=== PATIENT | female | born 1980 | race Caucasian/White ===

== ENCOUNTER 2017-11-13 04:09 | Emergency (ER) | payer BC, SELFPAY ==
[2017-11-13 04:10] VITALS: BP 143/83; PULSE 70; RESP 16; TEMP 36.9; O2SAT 98; BMI 39.1
--- NOTE | 2017-11-13 04:21 | XR_ITS ---
XR chest 2V INDICATION: Chest pain COMPARISON: PA and lateral chest 12/16/2016 FINDINGS: The lung de [place] are well expanded and appear clear of infiltrate. The cardiomediastinal silhouette and vascularity are normal. The costophrenic angles are clear. The bony thorax is normal. IMPRESSION: Normal chest.
--- NOTE | 2017-11-13 04:27 | PC.NURSE ---
Pt reports she took 2 81mg asa prior to coming to the ER
--- NOTE | 2017-11-13 04:28 | PC.NURSE ---
Pt. to radiology
[2017-11-13 04:34] LABS: Basophils # 0.1 K/mm3 (0-0.2); Basophils % 0.8 % (0.1-2.0); Eosinophils # 0.3 K/mm3 (0.0-0.4); Eosinophils % 1.7 % (0.1-12.0); Hematocrit 43.7 % (37.0-47.0); Hemoglobin 14.8 g/dL (12.2-16.2); Lymphocytes # 6.6 K/mm3 (0.7-4.5); Lymphocytes % 43.9 K/mm3 (10-50); Mean Corpuscular Hemoglobin 28.8 pg (27.0-31.2); Mean Corpuscular Volume 84.8 fl (81-99); Mean Platelet Volume 8.4 fl (7.4-10.4); Monocytes # 1.3 K/mm3 (0.1-1.0); Monocytes % 8.7 % (1.7-9.3); Neutrophils # 6.8 K/mm3 (1.8-7.8); Neutrophils % 44.9 % (37.0-80.0); Platelet Count 295 K/mm3 (142-424); Red Blood Count 5.15 M/mm3 (4.20-5.40); Red Cell Distribution Width 12.6 % (11.5-17.5)
[2017-11-13 04:43] LABS: MANUAL DIFFERENTIAL MANUAL DIFFERENTIAL (MANUAL DIFF)
[2017-11-13 04:44] LABS: Lymphocytes % 41 % (10-50); Monocytes % 7 % (2-9); Neutrophils % 50 % (42-76); Platelet Estimate Normal; RBC Morphology Normal; Total Cells Counted 100
[2017-11-13 05:00] LABS: Alanine Aminotransferase 27 U/L (12-78); Albumin Level 3.8 gm/dL (3.4-5.0); Albumin/Globulin Ratio 0.9 (1.1-1.8); Alkaline Phosphatase 142 U/L (46-116); Aspartate Amino Transferase 8 U/L (15-37); Bilirubin,Total 0.4 mg/dL (0.2-1.0); Blood Urea Nitrogen 25 mg/dL (7-18); Calcium 9.2 mg/dL (8.5-10.1); Carbon Dioxide 27 mmol/L (21.0-32.0); Chloride 100 mmol/L (98-107); Creatine Kinase 51 U/L (26-192); Creatinine Clearance Estimated 185 mL/min (0-300); Estimated Glomerular Filt Rate 94 ml/min (>60); GFR (African American) 114 ML/MIN (>60); Globulin 4.2 gm/dl (1.3-3.2); Glucose 106 mg/dL (74-106); Troponin I < 0.02 ng/ml (0.00-0.06)
[2017-11-13 05:04] LABS: Anion Gap 13.1 mEq/L (5-15); Potassium 4.1 mmoL/L (3.5-5.1); Sodium 136 mmol/L (136-145)
[2017-11-13 05:06] LABS: Creatine Kinase MB < 0.5 mg/ml (0.0-3.6)
[2017-11-13 05:12] VITALS: BP 118/62; PULSE 67; TEMP 36.7; O2SAT 96
--- NOTE | 2017-11-13 05:30 | HMH.EDCP ---
ED Disposition Clinical Impression: Chest pain Qualifiers: Chest pain type: other chest pain Qualified Code(s): R07.89 - Other chest pain; R07.8 - Other chest pain Disposition: Home, Self-Care Condition on Discharge: Good Instructions: DI for Atypical Chest Pain Additional Instructions: see pcp wednesday and return if needed Referrals: Patrick Brown MD [Primary Care Provider] - - Critical Care Critical Care Time: No Attestation: On 11/13/17, the high probability of a clinically significant, sudden or life threatening deterioration of the following system(s) required my full and direct attention, intervention and personal management. The time I documented below is in addition to time spent performing reported procedures but includes the following listed in this critical care notation. Medical Decision Making Vital Signs: 11/13/17 04:10 11/13/17 05:12 11/13/17 06:40 Temperature 98.4 F 98.0 F Temperature Source Oral Oral Pulse Rate [Right Brachial] 70 67 60 Respiratory Rate 16 12 Blood Pressure [Right Arm] 143/83 118/62 128/81 Blood Pressure Mean [Right Arm] 103 80 96 Blood Pressure Source [Right Arm] Automatic Cuff Automatic Cuff Automatic Cuff Blood Pressure Position [Right Arm] Supine Sitting Sitting 02 Sat by Pulse Oximetry 98 96 97 Oxygen Delivery Method Room Air Room Air Room Air - Lab Data Lab results reviewed: Yes: I reviewed the patient's lab results. Lab Results 11/13/17 04:15: WBC 15.0 H, RBC 5.15, Hgb 14.8, Hct 43.7, MCV 84.8, MCH 28.8, MCHC 34.0, RDW 12.6, Plt Count 295, MPV 8.4, Neut % (Auto) 44.9, Lymph % (Auto) 43.9, [place] % (Auto) 8.7, Eos % (Auto) 1.7, Baso % (Auto) 0.8, Neut # (Auto) 6.8, Lymph # (Auto) 6.6 H, [place] # (Auto) 1.3 H, Eos # (Auto) 0.3, Baso # (Auto) 0.1, Total Counted 100, Neutrophils % (Manual) 50, Band Neutrophils % 2.0, Lymphocytes % (Manual) 41, Monocytes % (Manual) 7, Platelet Estimate Normal, RBC Morphology Normal 11/13/17 04:15: Sodium 136, Potassium 4.1, Chloride 100, Carbon Dioxide 27, Anion Gap 13.1, BUN 25 H, Creatinine 0.70, Estimated Creat Clear 185, Estimated GFR 94, Est GFR ( Amer) 114, Glucose 106, Calcium 9.2, Total Bilirubin 0.4, AST 8 L, ALT 27, Alkaline Phosphatase 142 H, Total Creatine Kinase 51, CK-MB (CK-2) < 0.5, CK-MB (CK-2) Rel Index 1.0, Troponin I < 0.02, Total Protein 8.0, Albumin 3.8, Globulin 4.2 H, Albumin/Globulin Ratio 0.9 L 11/13/17 06:55: Troponin I < 0.02 Result diagrams: 11/13/17 04:15 11/13/17 04:15 Orders (Tests/Meds): ED MEDICATIONS Discontinued Medications Generic Name Dose Route Start Last Admin Trade Name Freq PRN Reason Stop Dose Admin Aspirin 162 mg 11/13/17 04:23 11/13/17 04:25 Aspirin 81mg Chewable Tablet PO 11/13/17 04:24 162 mg ONCE ONE Administration ORDERS Category Date Time Status XR chest 2V Stat Exams 11/13/17 04:21 Taken - Radiology Data #1 Image(s): Chest Image Reviewed: Yes I reviewed the patient's radiology image Preliminary Findings: Normal/NAD - ECG Data Tracing #1 I reviewed this ECG and interpreted as documented below: Normal Sinus Rhythm: Yes Ischemic changes: non-specific ST-T wave changes - [place] Inquiry Pt receiving controlled substance: No Chest Pain HPI - General Chief Complaint: Chest Pain Stated Complaint: chest pain Time Seen by Provider: 11/13/17 05:30 Mode of Arrival: Ambulatory Source of Information: Patient, Medical Record Limitations: No Limitations Description of Symptoms (Recalled from ER Triage Doc. by RN): chest pain that awakened pt in the night, diaphoresis, left arm pain - History of Present Illness HPI narrative: pt with episode of chest pain with rad to lt upper ext - she awoke with this MD complaint: chest pain Onset (ago): minute(s) Duration: now resolved Activity at onset: awoke with symptoms Pain location: substernal Severity: moderate Quality: sharp Pain radiation: LUE Risk Factors for CAD: Family Hx
--- NOTE | 2017-11-13 05:35 | ED_ITS ---
ED Disposition Clinical Impression: Chest pain Qualifiers: Chest pain type: other chest pain Qualified Code(s): R07.89 - Other chest pain ; R07.8 - Other chest pain Disposition: Home, Self-Care Condition on Discharge: Good Instructions: DI for Atypical Chest Pain Additional Instructions: see pcp wednesday and return if needed Referrals: Patrick Brown MD [Primary Care Provider] - - Critical Care Critical Care Time: No Attestation: On 11/13/17, the high probability of a clinically significant, sudden or life threatening deterioration of the following system(s) required my full and direct attention, intervention and personal management. The time I documented below is in addition to time spent performing reported procedures but includes the following listed in this critical care notation. Medical Decision Making Vital Signs: 11/13/17 04:10 11/13/17 05:12 11/13/17 06:40 Temperature 98.4 F 98.0 F Temperature Source Oral Oral Pulse Rate [Right Brachial] 70 67 60 Respiratory Rate 16 12 Blood Pressure [Right Arm] 143/83 118/62 128/81 Blood Pressure Mean [Right Arm] 103 80 96 Blood Pressure Source [Right Arm] Automatic Cuff Automatic Cuff Automatic Cuff Blood Pressure Position [Right Arm] Supine Sitting Sitting 02 Sat by Pulse Oximetry 98 96 97 Oxygen Delivery Method Room Air Room Air Room Air - Lab Data Lab results reviewed: Yes: I reviewed the patient's lab results. Lab Results 11/13/17 04:15: WBC 15.0 H, RBC 5.15, Hgb 14.8, Hct 43.7, MCV 84.8, MCH 28.8, MCHC 34.0, RDW 12.6, Plt Count 295, MPV 8.4, Neut % (Auto) 44.9, Lymph % (Auto) 43.9, [place] % (Auto) 8.7, Eos % (Auto) 1.7, Baso % (Auto) 0.8, Neut # (Auto) 6.8 , Lymph # (Auto) 6.6 H, [place] # (Auto) 1.3 H, Eos # (Auto) 0.3, Baso # (Auto) 0.1 , Total Counted 100, Neutrophils % (Manual) 50, Band Neutrophils % 2.0, Lymphocytes % (Manual) 41, Monocytes % (Manual) 7, Platelet Estimate Normal, RBC Morphology Normal 11/13/17 04:15: Sodium 136, Potassium 4.1, Chloride 100, Carbon Dioxide 27, Anion Gap 13.1, BUN 25 H, Creatinine 0.70, Estimated Creat Clear 185, Estimated GFR 94, Est GFR ( Amer) 114, Glucose 106, Calcium 9.2, Total Bilirubin 0.4, AST 8 L, ALT 27, Alkaline Phosphatase 142 H, Total Creatine Kinase 51, CK- MB (CK-2) < 0.5, CK-MB (CK-2) Rel Index 1.0, Troponin I < 0.02, Total Protein 8.0, Albumin 3.8, Globulin 4.2 H, Albumin/Globulin Ratio 0.9 L 11/13/17 06:55: Troponin I < 0.02 Result diagrams: 11/13/17 04:15 11/13/17 04:15 Orders (Tests/Meds): ED MEDICATIONS Discontinued Medications Generic Name Dose Route Start Last Admin Trade Name Freq PRN Reason Stop Dose Admin Aspirin 162 mg 11/13/17 04:23 11/13/17 04:25 Aspirin 81mg Chewable Tablet PO 11/13/17 04:24 162 mg ONCE ONE Administration ORDERS Category Date Time Status XR chest 2V Stat Exams 11/13/17 04:21 Taken - Radiology Data #1 Image(s): Chest Image Reviewed: Yes I reviewed the patient's radiology image Preliminary Findings: Normal/NAD - ECG Data Tracing #1 I reviewed this ECG and interpreted as documented below: Normal Sinus Rhythm: Yes Ischemic changes: non-specific ST-T wave changes - [place] Inquiry Pt receiving controlled substance: No Chest Pain HPI - General Chief Complaint: Chest Pain Stated Complaint: chest pain Time Seen by Prov
[2017-11-13 06:40] VITALS: BP 128/81; PULSE 60; RESP 12; O2SAT 97
[2017-11-13 07:30] LABS: Troponin I < 0.02 ng/ml (0.00-0.06)
[2017-11-13 07:48] VITALS: BP 108/71; PULSE 61; RESP 12; TEMP 36.5; O2SAT 98
== END 2017-11-13 07:48 | disposition home or self-care (01) ==
PROVIDERS: Emergency Provider Emergency Medicine; PCP Emergency Medicine
DX: R07.89 Other chest pain (principal); Z87.891 Personal history of nicotine dependence; Z79.82 Long term (current) use of aspirin
CPT/HCPCS: 71046; 80053; 82550; 82553; 84484; 85007; 85025; 93005; 93041; 99283

== ENCOUNTER → 2017-11-26 07:23 | Outpatient (CLI) | payer BC, SELFPAY ==
--- NOTE | 2017-11-26 07:29 | NM_ITS ---
History and Indications: Chest pain Procedure: Patient exercised on Evaristo protocol 7 minutes, resting heart rate was 60 bpm, resting blood pressure 129/71, with exercise maximum heart rate achieved was 1 69 bpm which is greater than 85% of the maximum predicted heart rate and a blood pressure was 180/78. Test was started due to shortness of breath, nausea complained of chest pain in the recovery. Patient has good exercise capacity achieved 10.1mets of workload on treadmill, the blood pressure response to exercise was adequate. Electrocardiogram: Resting electrocardiogram showed sinus rhythm rightward axis, with exercise excessive baseline artifact seen, there is less than 1.[address] segment depression noted from the baseline EKG. Nonspecific T wave changes were noted in the recovery. The EKG portion of the exercise Myoview is negative for ischemia. Cardiac stress and resting SPECT images: Cardiac stress and rest SPECT images were obtained using technetium 99 Myoview 10.6 mCi at rest and 31.8 mCi at stress, gated SPECT further analysis of segmental wall motion and calculation of the ejection fraction also done. Cardiac stress and rest SPECT images show a mild fixed defect in the anterior wall with the apex being normal and normal contractility in the gated SPECT is likely secondary to soft tissue attenuation from the breast, no reversible ischemia seen. Computer derived ejection fraction over 65% with no obvious regional wall motion abnormality, right ventricle is normal size and contractility. Conclusion: 1. The EKG portion of the exercise Myoview is negative for ischemia, patient has good exercise capacity achieved 10.1mets of workload on treadmill, the blood pressure response to exercise was adequate test was started due to shortness of breath, patient complained of chest pain in the recovery. 2. No obvious scintigraphic evidence of reversible ischemia seen at this level of exercise, either derived ejection fraction is over 65% with no obvious regional wall motion abnormality, right ventricle is normal size and contractility.
--- NOTE | 2017-11-26 10:20 | HMH.ITSHM ---
lisinopril lasix vit d zanaflex prolesec
== END ==
PROVIDERS: PCP Emergency Medicine; Visit Provider Physician Assistant
DX: R07.9 Chest pain, unspecified (principal)
CPT/HCPCS: 78452; 93017; A9502

== ENCOUNTER → 2017-12-18 08:57 | Outpatient (CLI) | payer BC, SELFPAY ==
[2017-12-18 10:31] LABS: Chol/HDL Ratio 4.1 (1-3.5); Cholesterol 227 mg/dL (140-200); HDL Cholesterol 55 mg/dL (29-89); LDL Cholesterol 146 mg/dL (0-130); Triglycerides 129 mg/dL (30-200); VLDL Cholesterol 26 mg/dL (0-40)
== END ==
PROVIDERS: PCP Emergency Medicine; Visit Provider Physician Assistant
DX: E78.5 Hyperlipidemia, unspecified (principal)
CPT/HCPCS: 36415; 80061

== ENCOUNTER → 2018-05-02 15:31 | Outpatient (CLI) | payer BC, SELFPAY ==
--- NOTE | 2018-05-02 15:34 | XR_ITS ---
XR foot wt bearing LT 3V HISTORY: ITS.REASON: pain ORDERING PHYSICIAN: Lashay Parks DPM PATIENT AGE: 37 years COMPARISON: None FINDINGS: No fracture or dislocation. No lytic or blastic change. There is normal mineralization.. The joint spaces are well-preserved. There is flexion deformity of the second third toes. Otherwise negative IMPRESSION: Flexion deformity of second and third toes otherwise negative
--- NOTE | 2018-05-02 15:34 | XR_ITS ---
XR foot wt bearing RT 3V HISTORY: ITS.REASON: Pain ORDERING PHYSICIAN: Lashay Parks DPM PATIENT AGE: 37 years COMPARISON: None FINDINGS: No fracture or dislocation. No lytic or blastic change. There is normal mineralization.. The joint spaces are well-preserved. No significant degenerative/arthritic changes. No erosive changes evident. IMPRESSION: Negative, no acute finding
== END ==
PROVIDERS: Visit Provider Podiatrist
DX: M79.673 Pain in unspecified foot (principal)
CPT/HCPCS: 73630

== ENCOUNTER → 2018-07-08 10:27 | Outpatient (CLI) | payer BC, SELFPAY ==
[2018-07-08 10:50] LABS: Basophils # 0.1 K/mm3 (0-0.2); Basophils % 0.7 % (0.1-2.0); Eosinophils # 0.1 K/mm3 (0.0-0.4); Eosinophils % 1.3 % (0.1-12.0); Hematocrit 45.8 % (37.0-47.0); Hemoglobin 15.3 g/dL (12.2-16.2); Lymphocytes # 3.9 K/mm3 (0.7-4.5); Mean Corpuscular HGB Conc 33.3 g/dL (31.8-35.4); Mean Corpuscular Hemoglobin 28.6 pg (27.0-31.2); Mean Corpuscular Volume 85.6 fl (81-99); Mean Platelet Volume 8.6 fl (7.4-10.4); Monocytes # 0.9 K/mm3 (0.1-1.0); Monocytes % 7.9 % (1.7-9.3); Neutrophils # 6.1 K/mm3 (1.8-7.8); Neutrophils % 55.1 % (37.0-80.0); Platelet Count 306 K/mm3 (142-424); Red Blood Count 5.35 M/mm3 (4.20-5.40); Red Cell Distribution Width 13.1 % (11.5-17.5); White Blood Count 11.1 K/mm3 (4.8-10.8)
[2018-07-08 13:23] LABS: Alanine Aminotransferase 25 U/L (12-78); Albumin Level 3.8 gm/dL (3.4-5.0); Alkaline Phosphatase 138 U/L (46-116); Anion Gap 17.5 mEq/L (5-15); Aspartate Amino Transferase 15 U/L (15-37); Bilirubin,Total 0.4 mg/dL (0.2-1.0); Blood Urea Nitrogen 18 mg/dL (7-18); Calcium 9.3 mg/dL (8.5-10.1); Carbon Dioxide 25 mmol/L (21.0-32.0); Chloride 103 mmol/L (98-107); Chol/HDL Ratio 4.5 (1-3.5); Cholesterol 259 mg/dL (140-200); Creatinine,Serum 0.57 mg/dL (0.55-1.02); Estimated Glomerular Filt Rate 119 ml/min (>60); GFR (African American) 144 ML/MIN (>60); Globulin 3.7 gm/dl (1.3-3.2); Glucose 87 mg/dL (74-106); HDL Cholesterol 58 mg/dL (29-89); LDL Cholesterol 170 mg/dL (0-130); Potassium 4.5 mmoL/L (3.5-5.1); Sodium 141 mmol/L (136-145); T4 (Thyroxine) 8.6 ug/dl (4.7-13.3); Thyroid Stimulating Hormone 3.34 uIU/ml (0.358-3.740); Total Protein,Serum 7.5 gm/dL (6.4-8.2); Triglycerides 156 mg/dL (30-200); VLDL Cholesterol 31 mg/dL (0-40)
== END ==
PROVIDERS: PCP Nurse Practitioner Family; Visit Provider Nurse Practitioner Family
DX: F32.9 Major depressive disorder, single episode, unspecified (principal)
CPT/HCPCS: 36415; 80053; 80061; 84436; 84443; 85025

== ENCOUNTER → 2018-07-28 18:44 | Outpatient (CLI) | payer BC, SELFPAY ==
[2018-07-28 19:38] LABS: Amphetamine/Metha Screen,Urine Negative ng/mL (<1000); Barbiturates Screen,Urine Negative ng/mL (<200); Benzodiazepines Screen,Urine Negative ng/mL (<200); Cannabinoid Screen,Urine Negative ng/mL (<50); Cocaine Screen,Urine Negative ng/mL (<300); Methadone Screen,Urine Negative ng/mL (<300); Opiate Screen,Urine Negative ng/mL (<300); Phencyclidine Screen,Urine Negative ng/mL (<25)
== END ==
LOC: LAB 18:45 → LAB.DROPOF 07-29 09:12
PROVIDERS: Visit Provider Nurse Practitioner Family
DX: Z79.899 Other long term (current) drug therapy (principal)
CPT/HCPCS: 80305

== ENCOUNTER → 2019-01-07 08:37 | Outpatient (CLI) | payer BC, SELFPAY ==
[2019-01-07 09:18] LABS: Basophils # 0.1 K/mm3 (0-0.2); Basophils % 0.6 % (0.1-2.0); Eosinophils # 0.3 K/mm3 (0.0-0.4); Hematocrit 41.4 % (37.0-47.0); Hemoglobin 14.2 g/dL (12.2-16.2); Lymphocytes # 4.9 K/mm3 (0.7-4.5); Lymphocytes % 38.9 % (10-50); Mean Corpuscular HGB Conc 34.2 g/dL (31.8-35.4); Mean Corpuscular Volume 84.8 fl (81-99); Mean Platelet Volume 8.1 fl (7.4-10.4); Monocytes # 0.5 K/mm3 (0.1-1.0); Monocytes % 3.9 % (1.7-9.3); Neutrophils # 6.8 K/mm3 (1.8-7.8); Neutrophils % 54.5 % (37.0-80.0); Platelet Count 302 K/mm3 (142-424); Red Blood Count 4.88 M/mm3 (4.20-5.40); Red Cell Distribution Width 12.8 % (11.5-17.5); White Blood Count 12.5 K/mm3 (4.8-10.8)
[2019-01-07 10:42] LABS: Erythrocyte Sedimentation Rate 10 mm/hr (0-20)
[2019-01-07 11:33] LABS: Alanine Aminotransferase 26 U/L (12-78); Albumin Level 3.8 gm/dL (3.4-5.0); Alkaline Phosphatase 99 U/L (46-116); Anion Gap 12.5 mEq/L (5-15); Aspartate Amino Transferase 7 U/L (15-37); Bilirubin,Total 0.3 mg/dL (0.2-1.0); Blood Urea Nitrogen 24 mg/dL (7-18); C-Reactive Protein 0.5 mg/L (0.0-0.9); Calcium 9.5 mg/dL (8.5-10.1); Carbon Dioxide 29 mmol/L (21.0-32.0); Chloride 102 mmol/L (98-107); Chol/HDL Ratio 4.6 (1-3.5); Cholesterol 221 mg/dL (140-200); Creatinine,Serum 0.67 mg/dL (0.55-1.02); Estimated Glomerular Filt Rate 98 ml/min (>60); GFR (African American) 119 ML/MIN (>60); Globulin 3.7 gm/dl (1.3-3.2); Glucose 99 mg/dL (74-106); HDL Cholesterol 48 mg/dL (29-89); LDL Cholesterol 144 mg/dL (0-130); Potassium 4.5 mmoL/L (3.5-5.1); Sodium 139 mmol/L (136-145); T4 (Thyroxine) 8.9 ug/dl (4.7-13.3); Thyroid Stimulating Hormone 1.73 uIU/ml (0.358-3.740); Total Protein,Serum 7.5 gm/dL (6.4-8.2); Triglycerides 143 mg/dL (30-200); VLDL Cholesterol 29 mg/dL (0-40)
[2019-01-09 08:40] LABS: Peripheral Smear Review Scanned Result
== END ==
PROVIDERS: Visit Provider Nurse Practitioner Family
DX: F32.9 Major depressive disorder, single episode, unspecified (principal); R58 Hemorrhage, not elsewhere classified; E78.5 Hyperlipidemia, unspecified
CPT/HCPCS: 36415; 80053; 80061; 84436; 84443; 85025; 85651; 86140

== ENCOUNTER → 2019-06-02 10:51 | Outpatient (CLI) | payer BC, SELFPAY ==
[2019-06-04 04:19] LABS: FSH 37.2 mIU/mL (.); Progesterone <0.1 ng/mL (.)
[2019-06-06 06:50] LABS: Estrogen 80 pg/mL (.)
[2019-06-08 06:10] LABS: Testosterone, Total, LC/MS 17.3 ng/dL (10.0-55.0)
== END ==
PROVIDERS: Visit Provider Nurse Practitioner Psychiatric/Mental Health
DX: R53.83 Other fatigue (principal)
CPT/HCPCS: 36415; 82672; 83001; 84144; 84403

== ENCOUNTER → 2019-07-03 11:01 | Outpatient (CLI) | payer BC, SELFPAY ==
[2019-07-03 13:46] LABS: T4 (Thyroxine) 8.1 ug/dl (4.7-13.3); Thyroid Stimulating Hormone 2.24 uIU/ml (0.358-3.740)
[2019-07-06 17:03] LABS: Triiodothyronine (T3) Free 2.9 pg/mL (2.0-4.4)
== END ==
PROVIDERS: Visit Provider Nurse Practitioner Psychiatric/Mental Health
DX: R53.83 Other fatigue (principal)
CPT/HCPCS: 36415; 84436; 84443; 84481

== ENCOUNTER → 2019-09-08 11:43 | Outpatient (CLI) | payer BC, SELFPAY ==
--- NOTE | 2019-09-08 11:45 | CA_ITS ---
APPROVED REPORT Bilateral Lower Extremity Venous Study for DVT. Sander Operator: Marianela Bro RVT Indications Lower Extremity Pain: Right Lower Extremity Edema: Right Shortness of breath eval for dvt Risk Factors Obesity Vein Imaging CFV (R): compressive, spontaneous, phasic, augmentation FEM (R): compressive, spontaneous, phasic, augmentation POP (R): compressive, spontaneous, phasic, augmentation PTV (R): Compressible GSV (R): Compressible SSV (R): Compressible, Peroneals (R):Compressible GAS (R): Compressible CFV (L): compressive, spontaneous, phasic, augmentation FEM (L): compressive, spontaneous, phasic, augmentation POP (L): compressive, spontaneous, phasic, augmentation PTV (L): Partially Compressible, Compressible GSV (L): Compressible Peroneals (L):Compressible GAS (L): Compressible Findings Study suggests no evidence of DVT bilateral lower extremities. Study suggests no evidence of SVT bilateral lower extremites. Conclusion No evidence of DVT or superficial thrombophlebitis in the veins scanned of the right lower extremity. No evidence of DVT or superficial thrombophlebitis in the veins scanned of the left lower extremity. Critical Notification Physician Notified Date: 09/08/2019 Time: 12:58 Physician Name: Lissette TSANG Electronically signed by : Young Elizabeth MD 09/08/2019 17:20:35
--- NOTE | 2019-09-08 13:02 | CT_ITS ---
PROCEDURE: CT ANGIO CHEST CLINCIAL INDICATION: cp/dyspnea/palps/rle edema Chest pain, dyspnea, evaluate for pulmonary embolus actinic COMPARISON: [facility] CTA-CHEST from 12/16/2016 TECHNIQUE: IV Contrast: 70ML OPTIRAY 350 Axial images obtained with sagittal and coronal reformats. All CT scans at the facility use one or more dose reduction, viz: automated exposure control, ma/kV adjustment per patient size (including targeted exams where dose is matched to indication, i.e. head), or iterative reconstruction technique. FINDINGS: No evidence of aortic aneurysm or dissection. No evidence of pulmonary embolus. Normal heart size. No evidence pericardial effusion. No mediastinal or hilar mass or adenopathy. The AP dimension of the inferior vena cava is 2.3 cm slightly enlarged. The lungs are clear of acute infiltrate. There is a calcified granuloma in the lingula. There is an 8 mm nodule in the left lung base nonspecific. The remaining lungs are clear. No acute bony findings. Upper abdominal images show mild hepatomegaly at 29 cm in maximum diameter. There is mild splenomegaly. IMPRESSION: 1. No evidence of pulmonary embolus or aortic aneurysm or dissection. 2. Mild enlargement of the inferior vena cava 3. Stable left lower lobe nodule Dictated by: Young Elizabeth MD 09/08/2019 14:57 Electronically signed by Young Elizabeth MD in [place] 09/08/2019 14:57
== END ==
PROVIDERS: PCP Emergency Medicine; Visit Provider Internal Medicine Cardiovascular Disease
DX: M79.604 Pain in right leg (principal); M79.89 Other specified soft tissue disorders; R00.2 Palpitations; R06.00 Dyspnea, unspecified; R07.9 Chest pain, unspecified
CPT/HCPCS: 71275; 93970; Q9967

== ENCOUNTER → 2019-09-29 08:38 | Outpatient (CLI) | payer BC, SELFPAY ==
[2019-09-29 09:09] LABS: Anion Gap 11.1 mEq/L (5-15); Blood Urea Nitrogen 19 mg/dL (7-18); Calcium 8.7 mg/dL (8.5-10.1); Carbon Dioxide 27 mmol/L (21.0-32.0); Chloride 105 mmol/L (98-107); Creatinine,Serum 0.68 mg/dL (0.55-1.02); Estimated Glomerular Filt Rate 96 ml/min (>60); GFR (African American) 117 ML/MIN (>60); Glucose 106 mg/dL (74-106); Potassium 4.1 mmoL/L (3.5-5.1); Sodium 139 mmol/L (136-145)
== END ==
PROVIDERS: PCP Emergency Medicine; Visit Provider Internal Medicine Cardiovascular Disease
DX: M79.89 Other specified soft tissue disorders (principal); R06.02 Shortness of breath; G47.33 Obstructive sleep apnea (adult) (pediatric)
CPT/HCPCS: 36415; 80048; 83880; G0399

== ENCOUNTER → 2019-10-24 12:59 | Outpatient (CLI) | payer BC, SELFPAY ==
[2019-10-24 14:57] LABS: Ferritin 158 ng/mL (8-388)
== END ==
PROVIDERS: Visit Provider Nurse Practitioner Family
DX: E83.10 Disorder of iron metabolism, unspecified (principal); G25.81 Restless legs syndrome; G47.33 Obstructive sleep apnea (adult) (pediatric)
CPT/HCPCS: 36415; 82728

== ENCOUNTER → 2020-01-29 15:43 | Outpatient (CLI) | payer BC, SELFPAY ==
--- NOTE | 2020-01-31 16:54 | PC.NURSE ---
PATIENT AND JOSE ANGEL CHRISTENSEN NOTIFIED OF NEGATIVE COVID RESULTS.
[2020-02-20 16:08] LABS: Covid-19 Nasal PCR Sendout Lex NOT DETECTED
== END ==
PROVIDERS: Physician Assistant; PCP Emergency Medicine; Visit Provider Emergency Medicine
DX: Z03.818 Encounter for observation for suspected exposure to other biological agents ruled out (principal)
CPT/HCPCS: U0004

== ENCOUNTER 2020-07-09 11:16 | Emergency (ER) | payer BC, SELFPAY ==
[2020-07-09 11:17] VITALS: BP 152/85; PULSE 80; RESP 16; TEMP 36.9; O2SAT 95; BMI 44.1
--- NOTE | 2020-07-09 11:34 | XR_ITS ---
PROCEDURE: XR HAND RT MIN 3V CLINICAL INDICATION: pulled self up on an overhead shelf COMPARISON: CR HANDL3 HAND-LT-3 VIEWS from 03/30/2016 FINDINGS: No fracture or dislocation. No lytic or blastic change. There is normal mineralization. The joint spaces are well-preserved. No significant degenerative/arthritic changes. No erosive changes evident. There is mild diffuse soft tissue swelling of the hand. There are no foreign bodies. Other findings:None. IMPRESSION: Mild diffuse soft tissue swelling, no acute bony abnormality seen Dictated by: Dr. Shad Christianson MD 07/09/2020 11:52 Dr. Shad Christianson MD in [place] 07/09/2020 11:52
--- NOTE | 2020-07-09 11:54 | HMH.EDUTC ---
[facility] [place] Clinical Impression: Right wrist tendonitis Disposition: Home, Self-Care Condition on Discharge: Good Instructions: Tendinopathy, DI for Tendinitis Additional Instructions: Rest the extremity, apply ice for 15 minutes as tolerated three or four times per day, Wear the luc wrap for compression, Elevate the extremity as tolerated while you are resting. Take ibuprofen for pain. I sent in a prescription to your pharmacy. Follow up with Dr. Trejo (orthopedics). I put in a referral but you need to call his office and schedule an appointment. The office number will be on this paperwork. Follow up with your regular doctor. GO TO THE ER FOR ANY WORSENING SYMPTOMS Prescriptions: Ibuprofen [Ibuprofen 600mg Tablet] 600 mg PO Q6HP PRN #30 tab PRN Reason: Mild Pain Transmission Status: Received by [facility] [place] Referrals: Grazyna Batista APRN [Primary Care Provider] - Praneeth Trejo MD [Staff Physician] - Forms: Work/School Release Time of Disposition: 12:19 Medical Decision Making - Medical Records Medical records reviewed: No: I reviewed the patient's medical records. - [place] Inquiry Pt receiving controlled substance: No Vital Signs: 07/09/20 11:17 07/09/20 12:36 Temperature 98.4 F 98.4 F Temperature Source Oral Oral Pulse Rate 80 Pulse Rate [Left Radial] 80 Respiratory Rate 16 16 Blood Pressure 152/85 H Blood Pressure [Right Arm] 152/85 H Blood Pressure Mean [Right Arm] 107 Blood Pressure Source Automatic Cuff Blood Pressure Source [Right Arm] Automatic Cuff Blood Pressure Position Sitting Blood Pressure Position [Right Arm] Sitting 02 Sat by Pulse Oximetry 95 Oxygen Delivery Method Room Air Room Air - Radiology Data #1 Image(s): Hand Image Reviewed: Yes I reviewed the patient's radiology image, Yes I have reviewed radiologist's interpretation Preliminary Findings: No Fracture Seen PROCEDURE: XR HAND RT MIN 3V CLINICAL INDICATION: pulled self up on an overhead shelf COMPARISON: CR HANDL3 HAND-LT-3 VIEWS from 03/30/2016 FINDINGS: No fracture or dislocation. No lytic or blastic change. There is normal mineralization. The joint spaces are well-preserved. No significant degenerative/arthritic changes. No erosive changes evident. There is mild diffuse soft tissue swelling of the hand. There are no foreign bodies. Other findings:None. IMPRESSION: Mild diffuse soft tissue swelling, no acute bony abnormality seen Dictated by: Dr. Shad Christianson MD 07/09/2020 11:52 Dr. Shad Christianson MD in [place] 07/09/2020 11:52 [facility] [place]PI - General Stated complaint: right wrist pain,no accident Time Seen by Provider: 07/09/20 11:54 - History of Present Illness Provider Complaint: She states that 3 days ago, she was at a store when she needed to get something off of the top shelf. She used her right hand to hold on to the shelf and pull herself up. When she did this, she felt something pull in her right hand and wrist. Since then she has had pain of the hand and wrist with any movements. - Related Data Home Medications Medication Instructions Recorded Confirmed cholecalciferol (vitamin D3) 50 2,500 unit PO DAILY tab 11/15/18 01/29/20 mcg (2,000 unit) tablet calcium carbonate 500 mg calcium 500 mg PO DAILY 08/10/19 01/29/20 (1,250 mg) chewable tablet Previous Rx's Medication Instructions Recorded fluticasone propionate 50 1 spray INTRANASAL QDAY #9.9 ml 01/04/19 mcg/actuation nasal spray,suspension potassium bicarbonate-citric acid 25 meq PO DAILY #90 each 02/07/19 25 mEq effervescent tablet estradiol 1 mg tablet 1 mg PO DAILY 30 Days #90 tab 08/10/19 pramipexole 0.25 mg tablet 0.25 mg PO DAILY #30 tab 10/24/19 azithromycin 250 mg tablet See Rx Instructions PO .COMPLEX #6 01/29/20 tab prednisone 20 mg tablet 20 mg PO BID #10 tab 01/29/20 bisoprolol fumarate 10 mg tablet 10 mg PO DAILY #90
[2020-07-09 12:36] VITALS: BP 152/85; PULSE 80; RESP 16; TEMP 36.9; O2SAT 95
== END 2020-07-09 12:37 | disposition home or self-care (01) ==
PROVIDERS: Emergency Provider Nurse Practitioner Family; PCP Nurse Practitioner Family
DX: M70.831 Other soft tissue disorders related to use, overuse and pressure, right forearm (principal); F41.8 Other specified anxiety disorders; K21.9 Gastro-esophageal reflux disease without esophagitis; G43.709 Chronic migraine without aura, not intractable, without status migrainosus; E78.5 Hyperlipidemia, unspecified; Z90.710 Acquired absence of both cervix and uterus; Z90.49 Acquired absence of other specified parts of digestive tract; Z87.891 Personal history of nicotine dependence
CPT/HCPCS: 29125; 73130; 99201

== ENCOUNTER → 2020-07-22 15:50 | Outpatient (CLI) | payer BC, SELFPAY ==
[2020-07-24 16:14] LABS: Covid-19 Nasal PCR Sendout Lex POSITIVE
== END ==
PROVIDERS: PCP Nurse Practitioner Family; Visit Provider Physician Assistant
DX: Z20.828 Contact with and (suspected) exposure to other viral communicable diseases (principal); U07.1 COVID-19
CPT/HCPCS: U0004

== ENCOUNTER 2020-10-27 14:30 | Emergency (ER) | payer OTHER, SELFPAY ==
--- NOTE | 2020-10-27 14:22 | ECG_ITS ---
APPROVED REPORT Exam: Resting ECG HR:64 bpm ECG Measurements Heart Rate 64 AXES OR 146 P 41 QRSd 84 QRS 56 QT 396 T 69 QTc 408 Conclusion Sinus rhythm with marked sinus arrhythmia Otherwise normal ECG Electronically signed by : Rohan Love, 10/28/2020 06:55:13
[2020-10-27 14:31] VITALS: BP 148/99; PULSE 76; RESP 18; TEMP 36.6; O2SAT 97; BMI 43.2
--- NOTE | 2020-10-27 14:39 | HMH.EDGENADL ---
ED Disposition Clinical Impression: Chest pain Qualifiers: Chest pain type: unspecified Qualified Code(s): R07.9 - Chest pain, unspecified Disposition: Home, Self-Care Condition on Discharge: Good Additional Instructions: Please follow-up with your accounts receivable associate as you may need further provocative testing for coronary artery disease. Return immediately if recurrent chest pain, shortness of breath, nausea/vomiting, diaphoresis, or other new concerning symptoms. Referrals: PCP,No [Primary Care Provider] - - Critical Care Critical Care Time: No Attestation: On , the high probability of a clinically significant, sudden or life threatening deterioration of the following system(s) required my full and direct attention, intervention and personal management. The time I documented below is in addition to time spent performing reported procedures but includes the following listed in this critical care notation. Medical Decision Making - Medical Records Medical records reviewed: Yes: I reviewed the patient's medical records. - [place] Inquiry Pt receiving controlled substance: No Vital Signs: 10/27/20 14:31 10/27/20 15:12 10/27/20 16:07 Temperature 97.9 F Temperature Source Oral Pulse Rate [Right Radial] 76 74 71 Respiratory Rate 18 Blood Pressure [Right Arm] 148/99 H 142/87 H 147/82 H Blood Pressure Mean [Right Arm] 115 105 103 Blood Pressure Source [Right Arm] Automatic Cuff Automatic Cuff Automatic Cuff Blood Pressure Position [Right Arm] Sitting Sitting Sitting 02 Sat by Pulse Oximetry 97 96 98 Oxygen Delivery Method Room Air Room Air 10/27/20 16:44 10/27/20 17:58 Temperature Temperature Source Pulse Rate [Right Radial] 73 71 Respiratory Rate Blood Pressure [Right Arm] 127/80 120/78 Blood Pressure Mean [Right Arm] 95 92 Blood Pressure Source [Right Arm] Automatic Cuff Automatic Cuff Blood Pressure Position [Right Arm] Sitting Sitting 02 Sat by Pulse Oximetry 96 95 Oxygen Delivery Method Room Air Room Air - Lab Data Lab Results 10/27/20 14:33: WBC 13.6 H, RBC 5.31, Hgb 15.7, Hct 46.1, MCV 86.9, MCH 29.5, MCHC 34.0, RDW 13.9, Plt Count 308, MPV 9.0, Neut % (Auto) 50.7, Lymph % (Auto) 40.1, [place] % (Auto) 8.7, Eos % (Auto) 0.0 L, Baso % (Auto) 0.5, Neut # (Auto) 6.9, Lymph # (Auto) 5.5 H, [place] # (Auto) 1.2 H, Eos # (Auto) 0.0, Baso # (Auto) 0.1 10/27/20 14:33: Sodium 141, Potassium 4.0, Chloride 104, Carbon Dioxide 30, Anion Gap 11.0, BUN 18 H, Creatinine 0.60, Estimated Creat Clear 112, Estimated GFR 111, Est GFR ( Amer) 134, Glucose 124 H, Calcium 9.7, Troponin I < 0.01 10/27/20 17:23: Troponin I < 0.01 Result diagrams: 10/27/20 14:33 10/27/20 14:33 Orders (Tests/Meds): ED MEDICATIONS Discontinued Medications Generic Name Dose Route Start Last Admin Trade Name Freq PRN Reason Stop Dose Admin Aspirin 243 mg 10/27/20 14:50 10/27/20 14:57 Aspirin 81mg Chewable Tablet PO 10/27/20 14:51 243 mg ONCE ONE Administration ORDERS Category Date Time Status Troponin I Q3H Lab 10/27/20 20:45 Ordered - ECG Data Tracing #1 I reviewed this ECG and interpreted as documented below: EKG demonstrates sinus rhythm at a rate of 64 bpm; axis normal; no acute ST elevation/depression Medical Decision Narrative: Patient 39-year-old female presenting with some chest pain. EKG nonischemic on arrival. Patient already given 324 mg of chewable aspirin. ACS on the differential as well as hypertensive emergency versus infectious process versus anemia versus diffuse esophageal spasm versus GI related chest pain. At this time, cardiac enzyme testing will be obtained with other basic labs as well as a chest x-ray for further work-up of etiologies as listed above. Patient currently hemodynamic stable and actually does not have chest pain so no other interventions will be attempted at this time. X-ray negative for acute cardiopulmonary abnormality. Other lab work unremarkab
--- NOTE | 2020-10-27 14:44 | XR_ITS ---
PROCEDURE: XR CHEST 2V Referring Doctor: Venkata Scott Patient Age:39Y CLINICAL HISTORY: cp chest pain past 1.5 hours. Substernal right-sided chest pain and also some left arm pain mild nausea with questionable dyspnea COMPARISON: CR CXR CHEST(2 VIEWS-NOT PORTABLE) from 08/03/2013 CR CXR CHEST(2 VIEWS-NOT PORTABLE) from 12/16/2016 CR CXR2V XR chest 2V from 11/13/[address] ANGIO CHEST from 09/08/2019 FINDINGS: PA and lateral chest . Lungs appear well expanded and clear with no focal infiltrate. No pleural effusion, no pneumothorax. the cardiomediastinal silhouette satisfactory and pulmonary vascularity slight generous but within normal limits. The lungs are clear without infiltrates, suspicious nodules, or pleural effusions. No acute bony abnormalities. IMPRESSION: Lungs clear with nothing definitely acute. . Heart upper normal in size Dictated by: Kvng Dave MD 10/27/2020 17:18 Kvng Dave MD in [place] 10/27/2020 17:18
[2020-10-27 14:55] LABS: Basophils # 0.1 K/mm3 (0-0.2); Basophils % 0.5 % (0.1-2.0); Hematocrit 46.1 % (37.0-47.0); Hemoglobin 15.7 g/dL (12.2-16.2); Lymphocytes # 5.5 K/mm3 (0.7-4.5); Lymphocytes % 40.1 % (10-50); Mean Corpuscular Hemoglobin 29.5 pg (27.0-31.2); Mean Corpuscular Volume 86.9 fl (81-99); Monocytes # 1.2 K/mm3 (0.1-1.0); Monocytes % 8.7 % (1.7-9.3); Neutrophils # 6.9 K/mm3 (1.8-7.8); Neutrophils % 50.7 % (37.0-80.0); Platelet Count 308 K/mm3 (142-424); Red Blood Count 5.31 M/mm3 (4.20-5.40); Red Cell Distribution Width 13.9 % (11.5-17.5); White Blood Count 13.6 K/mm3 (4.8-10.8)
[2020-10-27 15:06] LABS: Chloride 104 mmol/L (98-107); Sodium 141 mmol/L (136-145)
--- NOTE | 2020-10-27 15:06 | PC.NURSE ---
Pt returned from rad.
[2020-10-27 15:08] LABS: Blood Urea Nitrogen 18 mg/dl (7-17); Creatinine Clearance Estimated 112 mL/min (50-200); Estimated Glomerular Filt Rate 111 ml/min (>60); GFR (African American) 134 ML/MIN (>60)
[2020-10-27 15:09] LABS: Calcium 9.7 mg/dl (8.4-10.2); Carbon Dioxide 30 mmol/L (22.0-30.0); Glucose 124 mg/dl (74-100)
[2020-10-27 15:12] VITALS: BP 142/87; PULSE 74; O2SAT 96
[2020-10-27 15:23] LABS: Troponin I < 0.01 ng/ml (0.00-0.034)
[2020-10-27 16:07] VITALS: BP 147/82; PULSE 71; O2SAT 98
[2020-10-27 16:44] VITALS: BP 127/80; PULSE 73; O2SAT 96
[2020-10-27 17:58] VITALS: BP 120/78; PULSE 71; O2SAT 95
[2020-10-27 18:00] LABS: Troponin I < 0.01 ng/ml (0.00-0.034)
[2020-10-27 18:38] VITALS: BP 120/78; PULSE 71; RESP 18; TEMP 36.6; O2SAT 95
== END 2020-10-27 18:38 | disposition home or self-care (01) ==
PROVIDERS: Emergency Provider Emergency Medicine
DX: R07.9 Chest pain, unspecified (principal); F41.8 Other specified anxiety disorders; K21.9 Gastro-esophageal reflux disease without esophagitis; E78.5 Hyperlipidemia, unspecified; E66.9 Obesity, unspecified; Z68.41 Body mass index [BMI] 40.0-44.9, adult; Z79.899 Other long term (current) drug therapy
CPT/HCPCS: 71046; 80048; 84484; 85025; 93005; 99283

== ENCOUNTER → 2020-12-04 17:04 | Outpatient (CLI) | payer OTHER, SELFPAY ==
[2020-12-04 18:08] LABS: Basophils % 0.2 % (0.1-2.0); Hematocrit 41.6 % (37.0-47.0); Hemoglobin 13.9 g/dL (12.2-16.2); Lymphocytes # 4.6 K/mm3 (0.7-4.5); Lymphocytes % 31.4 % (10-50); Mean Corpuscular HGB Conc 33.4 g/dL (31.8-35.4); Mean Corpuscular Hemoglobin 28.7 pg (27.0-31.2); Mean Corpuscular Volume 86.1 fl (81-99); Mean Platelet Volume 8.8 fl (7.4-10.4); Monocytes # 1.2 K/mm3 (0.1-1.0); Monocytes % 8.2 % (1.7-9.3); Neutrophils # 8.9 K/mm3 (1.8-7.8); Neutrophils % 60.2 % (37.0-80.0); Platelet Count 304 K/mm3 (142-424); Red Blood Count 4.82 M/mm3 (4.20-5.40); Red Cell Distribution Width 13.6 % (11.5-17.5); White Blood Count 14.7 K/mm3 (4.8-10.8)
[2020-12-04 18:25] LABS: Chloride 104 mmol/L (98-107)
[2020-12-04 18:26] LABS: Potassium 4.3 mmoL/L (3.5-5.1); Sodium 138 mmol/L (136-145)
[2020-12-04 18:28] LABS: Alanine Aminotransferase 30 U/L (12-78); Anion Gap 15.3 mEq/L (5-15); Aspartate Amino Transferase 31 U/L (14-36); Blood Urea Nitrogen 20 mg/dl (7-17); Carbon Dioxide 23 mmol/L (22.0-30.0); Estimated Glomerular Filt Rate 111 ml/min (>60); GFR (African American) 134 ML/MIN (>60)
[2020-12-04 18:29] LABS: Albumin Level 4.3 g/dl (3.5-5.0); Albumin/Globulin Ratio 1.2 (1.1-1.8); Alkaline Phosphatase 117 U/L (38-126); Bilirubin,Total 0.4 mg/dl (0.2-1.3); Calcium 9.7 mg/dl (8.4-10.2); Cholesterol 241 mg/dl (140-200); Globulin 3.5 g/dL (1.3-3.2); Glucose 159 mg/dl (74-100); HDL Cholesterol 48 mg/dl (40-60); Total Protein,Serum 7.8 g/dl (6.3-8.2); Triglycerides 326 mg/dl (30-150); VLDL Cholesterol 65 mg/dL (0-40)
[2020-12-04 18:46] LABS: 25-OH Vitamin D, Total 41.4 ng/mL (30-100)
[2020-12-04 18:47] LABS: Free T4 (Free Thyroxine) 0.93 ng/dl (0.78-2.19)
[2020-12-04 19:42] LABS: Direct LDL Cholesterol 154.15 mg/dL (100-129)
[2020-12-04 20:05] LABS: Thyroid Stimulating Hormone 0.32 uIU/mL (0.465-4.68)
== END ==
PROVIDERS: Visit Provider Nurse Practitioner Family
DX: Z00.00 Encounter for general adult medical examination without abnormal findings (principal); E03.9 Hypothyroidism, unspecified; Z68.42 Body mass index [BMI] 45.0-49.9, adult; E66.9 Obesity, unspecified; Z79.899 Other long term (current) drug therapy
CPT/HCPCS: 80053; 80061; 82306; 84439; 84443; 85025

== ENCOUNTER → 2021-02-07 16:18 | Outpatient (CLI) | payer OTHER, SELFPAY ==
--- NOTE | 2021-02-07 16:20 | CA_ITS ---
APPROVED REPORT Right Lower Extremity Venous Study for DVT. Waste Reclaimer: LAURENT Indications reddness with tenderness-ongoing cellulitis treatment x 2 days, R lower extremity pain Risk Factors Obesity Vein Imaging CFV (R): compressive, spontaneous, phasic, augmentation FEM (R): compressive, spontaneous, phasic, augmentation POP (R): compressive, spontaneous, phasic, augmentation DFV (R): compressive, spontaneous, phasic, augmentation PTV (R): compressive, spontaneous, phasic, augmentation GSV (R): compressive, spontaneous, phasic, augmentation SSV (R): compressive, spontaneous, phasic, augmentation Peroneals (R):compressive, spontaneous, phasic, augmentation GAS (R): compressive, spontaneous, phasic, augmentation Findings Negative for DVT. Color flow duplex demonstrates no evidence of DVT of the following right lower extremity Veins:Common Femoral Vein, Femoral Vein, Popliteal Vein, Posterior Tibial Veins, Peroneal Veins. Technically limited exam due to imaging depths. Conclusion Negative for DVT. Color flow duplex demonstrates no evidence of DVT of the following right lower extremity Veins:Common Femoral Vein, Femoral Vein, Popliteal Vein, Posterior Tibial Veins, Peroneal Veins. Technically limited exam due to imaging depths. Electronically signed by : Young Elizabeth MD 02/10/2021 15:57:03
== END ==
PROVIDERS: PCP Emergency Medicine; Visit Provider Nurse Practitioner Family
DX: M79.661 Pain in right lower leg (principal)
CPT/HCPCS: 93971

== ENCOUNTER → 2021-02-21 06:57 | Outpatient (CLI) | payer OTHER, SELFPAY ==
--- NOTE | 2021-02-21 06:59 | NM_ITS ---
APPROVED REPORT Exam: Nuclear Stress Test Indication: HYPERLIPIDEMIA, C.P., SOB, PALPITATIONS, FATIGUE, EDEMA Patient Location: Outpatient Stress Tech: Jojo Trinh AR Tech:GARRICK Pacheco RT(R)(N) Ht: 5 ft 5 in Wt: 275 lbs Bra Size: 38DDD HR: 69 bpm BP: 138/90 mmHg BSA: 2.26 m2 BMI: 45.7 History: HYPERLIPIDEMIA, C.P., SOB, PALPITATIONS, FATIGUE, EDEMA Procedure: Patient exercised on Evaristo protocol 3:47 minutes and sec, resting heart rate 78 bpm, resting blood pressure 140/78 mmHg, with exercise maximum heart rate achived was 163 bpm which is 91 % of the maximum predicted heart rate and blood pressure was 155/68 mmHg. Test was stopped due to fatigue. Patient denied any complaint of chest pain. Patient has Poor exercise capacity, achieved 4.6 METs of workload on treadmill, the blood pressure response to exercise was Abnormal. Electrocardiogram Resting electrocardiogram showed sinus rhythm, with exercise there is excessive baseline artifact seen, the EKG with exercise is nondiagnostic due to excessive baseline artifact. There is less than 1.[address] segment depression noted. Cardiac Stress and Resting SPECT Images: Cardiac Stress and Resting SPECT images were obtained using technetium 99m Myoview 29.9 mCi stress and 9.99 mCi at rest. Gated SPECT for analysis of segmental wall motion and calculation of the ejection fraction also done. Prone images were also obtained. Cardiac stress and resting SPECT images show uniform myocardial activity without segmental perfusion abnormality, computer derived ejection fraction is over 65% with no regional wall motion abnormality, right ventricle is normal size and contractility, there is transient ischemic dilatation of the left ventricle seen, raising the presence of balanced ischemia, other causes for transient ischemic dilatation include hypertensive heart disease, elevated left ventricular end-diastolic pressure, microvascular disease and diabetes mellitus. Conclusion: 1. The EKG portion of the exercise Myoview was nondiagnostic due to excessive baseline artifact, patient has poor exercise capacity achieved 4.6 METs of workload on treadmill, the blood pressure response to exercise was abnormal test was stopped due to shortness of breath and fatigue. 2. No scintigraphic evidence of reversible ischemia seen, computer derived ejection fraction is over 65% with no regional wall motion abnormality, right ventricle is normal size and contractility, there is transient ischemic dilatation of the left ventricle seen, raising the concerns for presence of balanced ischemia, other causes for transient ischemic dilatation include hypertensive heart disease elevated left ventricular end-diastolic pressure, microvascular disease and diabetes mellitus. Clinical correlation is recommended. 3. Abnormal exercise Myoview study. Electronically signed by : Tom Spaulding, 02/21/2021 15:10:36
--- NOTE | 2021-02-21 06:59 | CA_ITS ---
APPROVED REPORT EXAM: Comprehensive 2D, Doppler, and color-flow Echocardiogram Brim Shaper: Apple Matson RT(R) Ht: 5 ft 5 in Wt: 278lbs BSA: 2.28 BP: 130/72 mmHg Indications: CP, SOB, obesity, GERD, hyperlipidemia 2D Dimensions LVOT 2.04 cm (M/F) 1.5-2.5 LA Volume 30.00 mL LA Volume Index 13.21 mL/m2 (M/F) 16-34 M-Mode Dimensions RVDd 2.82 cm (0.9-2.6) LA Diam 4.30 cm (1.9-4.0) LVDd 4.29 cm (3.5-5.7) Ao Diam 2.60 cm (2.0-3.7) LVDs 3.40 cm (3.5-5.7) IVSd 1.21 cm (0.6-1.1) PWd 0.80 cm (0.6-1.1) EF (Teich) 42.60% FS 20.70% EDV (Teich) 82.60 mL ESV (Teich) 47.40 mL LV Diastology E Decel Time 200.00 (160-240 msec) E/A Ratio 1.3 MED E' 9.50 (< 7 cm/sec) E'/MED E' Ratio 9.36 (>14) LAT E' 11.00 (<10 cm/sec) E/LAT E' Ratio 8.08 (>14) Mitral Valve MV E Max Ryan. 89.00 (40-130 cm/s) MV A Velocity 70.00 (40-130 cm/s) E/A Ratio 1.27 MV Decel. Time 200.00 (160-240 ms) MV PHT 59.00 ms Left Ventricle Left atrium is normal size, left ventricle is normal size, there is no concentric left ventricular hypertrophy, visually estimated ejection fraction 55% with no regional wall motion abnormality, diastolic parameters are within normal range. Right Ventricle Right atrium and right ventricle are relatively normal size and function. Aortic Valve Aortic valve is grossly normal, there is no aortic stenosis or aortic insufficiency. Mitral Valve Mitral valve grossly normal, there is trace mitral regurgitation. Tricuspid Valve Tricuspid valve grossly normal, there is trace tricuspid regurgitation, tricuspid regurgitation jet velocity is inadequate for calculation of the right ventricular systolic pressure. Pulmonic Valve Pulmonic valve is poorly visualized. Great Vessels Aortic root is normal size. Pericardium No significant pericardial effusion noted. Conclusion 1. Normal left ventricular size, preserved left ventricular systolic function, visually estimated ejection fraction 55% with no regional wall motion abnormality, diastolic parameters are within normal range. 2. Trace mitral and tricuspid regurgitation. 3. No significant pericardial effusion noted. Electronically signed by : Tom Spaulding, 02/21/2021 13:41:05
--- NOTE | 2021-02-21 06:59 | CA_ITS ---
APPROVED REPORT Exam: Exercise Treadmill Technologist: pedro julio, Ht: 5 ft 5 in Wt: 278 lbs BSA: 2.28 m2 HR: 78 bpm BP: 140/78 mmHg Indications: CP, SOB Medical History Medications: Asa,,,,, Cephalexin,,,,, Pramipexole,,,,, Lasix,,,,, SpirOLACTONE,,,,, Bisprolol,,,,, LoraTADINE,,,,, ThyroID,,,,, LaMotrigine,,,,, Desvenlafaxine,,,,, BRExpiprazole,,,,, Allergies: NKA Cardiac Risk Factors: Hyperlipidemia Stress Test Details Test: Evaristo HR Resting HR: 91 bpm Max Heart Rate (APMHR): 179 bpm Max HR Achieved: 163 bpm Target HR (85% APMHR): 152 bpm % of APMHR: 91 Recovery HR: 95 bpm BP Resting BP: 149/84 mmHg Max BP: 155/68 mmHg Recovery BP: 155.0/68.0 mmHg ECG Resting ECG: Sinus rhythm Clinical Exercise duration: 03:47 min Highest Stage Achieved: Stage 2: 2.5 mph at 12% grade. Exercise capacity: 4.6 METs Stress ECG Conclusion No chest pain. SOB at peak exercise which resolved during recovery. No ectopy. Less than 1.5mm ST Depression noted. Images to follow. Test Summary REST . . . . . . . Standing REST . . . . . . . Sitting REST . . . . . . . Sitting REST 02:41 0.0 0.0 91 . 149/ 84 . . Stage 1 01:00 10.0 1.7 115 . . . . Stage 1 02:00 10.0 1.7 141 . . . . Stage 1 . . . . . . . Cardiolite injected Stage 1 03:00 10.0 1.7 152 . . . . Stage 2 00:47 12.0 2.5 160 . . . Stop exercise at 03:47 RECOVERY 01:00 0.0 0.0 142 . . . . RECOVERY 02:00 0.0 0.0 112 . . . . RECOVERY 03:00 0.0 0.0 97 . 155/ 68 . . RECOVERY 04:00 0.0 0.0 92 . 155/ 68 . . RECOVERY 04:28 0.0 0.0 93 . 139/ 66 . . Electronically signed by : Tom Spauldign, 02/21/2021 10:59:18
== END ==
PROVIDERS: PCP Nurse Practitioner Family; Visit Provider Nurse Practitioner Family
DX: R06.02 Shortness of breath (principal); R60.9 Edema, unspecified; K21.9 Gastro-esophageal reflux disease without esophagitis
CPT/HCPCS: 78452; 93017; 93306; A9502

== ENCOUNTER → 2021-03-01 11:39 | Outpatient (CLI) | payer OTHER, SELFPAY ==
[2021-03-01 13:12] LABS: Basophils # 0.1 K/mm3 (0-0.2); Basophils % 0.4 % (0.1-2.0); Eosinophils % 0.1 % (0.1-12.0); Hematocrit 44.1 % (37.0-47.0); Hemoglobin 15.2 g/dL (12.2-16.2); Lymphocytes # 4.9 K/mm3 (0.7-4.5); Lymphocytes % 37.9 % (10-50); Mean Corpuscular HGB Conc 34.5 g/dL (31.8-35.4); Mean Corpuscular Hemoglobin 29.6 pg (27.0-31.2); Mean Corpuscular Volume 85.8 fl (81-99); Mean Platelet Volume 8.4 fl (7.4-10.4); Monocytes # 1.1 K/mm3 (0.1-1.0); Monocytes % 8.7 % (1.7-9.3); Neutrophils # 6.8 K/mm3 (1.8-7.8); Neutrophils % 52.8 % (37.0-80.0); Platelet Count 283 K/mm3 (142-424); Red Blood Count 5.14 M/mm3 (4.20-5.40); White Blood Count 12.9 K/mm3 (4.8-10.8)
[2021-03-01 13:45] LABS: Alanine Aminotransferase 39 U/L (12-78); Albumin Level 4.6 g/dl (3.5-5.0); Albumin/Globulin Ratio 1.4 (1.1-1.8); Alkaline Phosphatase 104 U/L (38-126); Anion Gap 12.6 mEq/L (5-15); Aspartate Amino Transferase 38 U/L (14-36); Bilirubin,Total 0.7 mg/dl (0.2-1.3); Blood Urea Nitrogen 18 mg/dl (7-17); Calcium 9.8 mg/dl (8.4-10.2); Carbon Dioxide 27 mmol/L (22.0-30.0); Chloride 102 mmol/L (98-107); Estimated Glomerular Filt Rate 110 ml/min (>60); GFR (African American) 133 ML/MIN (>60); Globulin 3.3 g/dL (1.3-3.2); Glucose 110 mg/dl (74-100); Potassium 4.6 mmoL/L (3.5-5.1); Sodium 137 mmol/L (136-145); Total Protein,Serum 7.9 g/dl (6.3-8.2)
== END ==
LOC: LAB 11:40
PROVIDERS: Visit Provider Urology
DX: Z01.812 Encounter for preprocedural laboratory examination (principal); Z20.822 Contact with and (suspected) exposure to COVID-19; R06.02 Shortness of breath; I20.8 Other forms of angina pectoris
CPT/HCPCS: 80053; 85025; U0003

== ENCOUNTER 2021-03-03 07:47 | Day surgery (SDC) | payer OTHER, SELFPAY ==
[2021-03-03] VITALS (11 sets, daily range): BP systolic 99–155; BP diastolic 50–87; PULSE 66–81; RESP 16–20; O2SAT 91–100; BMI 46.7
--- NOTE | 2021-03-03 07:03 | IR_ITS ---
APPROVED REPORT Patient Location: Outpatient Project Superintendent: GARRICK Fried RT (R) PROCEDURES Left heart catheterization Left ventriculogram Selective coronary angiogram INDICATION Abnormal Myoview, Accelerated angina pectoris Informed consent was obtained prior to the procedure. COMPLICATIONS NONE Estimated Blood Loss: LESS THAN 10 ML TECHNIQUE One percent lidocaine used to anesthetize the right anterior aspect of the wrist. The right radial artery was accessed via the Seldinger technique. A 6 Qatari sheath was placed in the right radial artery. 2.5 mg of verapamil, 800 mcg of nitroglycerin, 1mg Lidocaine and 5000 U Heparin were given through the arterial sheath. The trap catheter was also used to perform left heart catheterization, left ventriculogram and selective coronary angiogram. At the end of the procedure the sheath was removed good hemostasis was achieved using Traclet band, patient was transferred to the postop holding area in stable condition. ANGIOGRAPHIC RESULTS The left main artery Normal The left anterior descending artery Is angiographically normal accompanied by PHILIP II flow The circumflex artery Nondominant normal The right coronary artery Large dominant and normal accompanied by PHILIP II flow The [place]FTON ventriculogram reveals Hyperdynamic greater than 75% The left ventricular end-diastolic pressure Severely elevated at 40 mmHg IMPRESSION Normal coronary arteries Slow flow down the LAD and the dominant right coronary artery both consistent with endothelial dysfunction or secondary to severe diastolic dysfunction which decreases coronary perfusion pressure Hyperdynamic ventricle Severely elevated LVEDP PLAN 1. Treatment of severe diastolic dysfunction Electronically signed by : Eusebio Chung, 03/03/2021 09:37:19
== END 2021-03-03 12:12 | disposition home or self-care (01) ==
PROVIDERS: PCP Emergency Medicine; Visit Provider Internal Medicine
DX: I25.118 Atherosclerotic heart disease of native coronary artery with other forms of angina pectoris (principal); R94.39 Abnormal result of other cardiovascular function study; Z82.49 Family history of ischemic heart disease and other diseases of the circulatory system; E66.01 Morbid (severe) obesity due to excess calories; E78.2 Mixed hyperlipidemia; K21.9 Gastro-esophageal reflux disease without esophagitis; R06.02 Shortness of breath; Z87.891 Personal history of nicotine dependence; Z68.42 Body mass index [BMI] 45.0-49.9, adult
CPT/HCPCS: 93458; 99152; C1725; C1769; J1644; J2405; Q9967

== ENCOUNTER → 2021-06-12 16:10 | Outpatient (CLI) | payer BC, SELFPAY ==
[2021-06-12 17:00] LABS: Basophils # 0.1 K/mm3 (0-0.2); Basophils % 0.7 % (0.1-2.0); Hematocrit 43.2 % (37.0-47.0); Hemoglobin 14.3 g/dL (12.2-16.2); Lymphocytes # 5.8 K/mm3 (0.7-4.5); Lymphocytes % 32.8 % (10-50); Mean Corpuscular HGB Conc 33.2 g/dL (31.8-35.4); Mean Corpuscular Hemoglobin 29.6 pg (27.0-31.2); Mean Corpuscular Volume 89.1 fl (81-99); Mean Platelet Volume 8.8 fl (7.4-10.4); Monocytes # 1.3 K/mm3 (0.1-1.0); Monocytes % 7.1 % (1.7-9.3); Neutrophils # 10.5 K/mm3 (1.8-7.8); Neutrophils % 59.4 % (37.0-80.0); Platelet Count 332 K/mm3 (142-424); Red Blood Count 4.85 M/mm3 (4.20-5.40); Red Cell Distribution Width 13.9 % (11.5-17.5); White Blood Count 17.7 K/mm3 (4.8-10.8)
[2021-06-12 17:02] LABS: MANUAL DIFFERENTIAL MANUAL DIFFERENTIAL (MANUAL DIFF)
[2021-06-12 17:10] LABS: Hemoglobin A1C 6.1 % (4.0-6.0)
[2021-06-12 17:15] LABS: Iron 58 ug/dL (37-170)
[2021-06-12 17:25] LABS: Total Iron Binding Capacity 365 ug/dL (265-497)
[2021-06-12 18:09] LABS: Anion Gap 16.6 mEq/L (5-15); Blood Urea Nitrogen 20 mg/dl (7-17); Calcium 9.4 mg/dl (8.4-10.2); Carbon Dioxide 26 mmol/L (22.0-30.0); Chloride 102 mmol/L (98-107); Estimated Glomerular Filt Rate 92 ml/min (>60); GFR (African American) 112 ML/MIN (>60); Glucose 109 mg/dl (74-100); Potassium 4.6 mmoL/L (3.5-5.1); Sodium 140 mmol/L (136-145)
[2021-06-12 19:04] LABS: Vitamin B12 438 pg/mL (239-931)
[2021-06-12 21:20] LABS: Lymphocytes % 34 % (10-50); Monocytes % 6 % (2-9); Neutrophils % 60 % (42-76); Platelet Estimate Normal; RBC Morphology Normal; Total Cells Counted 100
[2021-06-23 23:47] LABS: 1,25 Dihydroxy Vitamin D 18 pg/mL (.); 1,25-Dihydroxy, Vitamin D-2 <10 pg/mL (.); 1,25-Dihydroxy, Vitamin D-3 18 pg/mL (.)
== END ==
PROVIDERS: Urology; Visit Provider Nurse Practitioner Psychiatric/Mental Health
DX: R06.02 Shortness of breath (principal); I20.8 Other forms of angina pectoris; R60.9 Edema, unspecified; R94.39 Abnormal result of other cardiovascular function study; E78.2 Mixed hyperlipidemia; E66.01 Morbid (severe) obesity due to excess calories; K21.9 Gastro-esophageal reflux disease without esophagitis; Z82.49 Family history of ischemic heart disease and other diseases of the circulatory system; Z87.891 Personal history of nicotine dependence; I51.89 Other ill-defined heart diseases; Z79.899 Other long term (current) drug therapy; Z68.42 Body mass index [BMI] 45.0-49.9, adult
CPT/HCPCS: 36415; 80048; 82607; 82652; 83036; 83540; 83550; 85007; 85025

== ENCOUNTER → 2021-06-20 16:25 | Outpatient (CLI) | payer BC, SELFPAY ==
[2021-06-20 17:19] LABS: Alanine Aminotransferase 36 U/L (12-78); Albumin Level 4.1 g/dl (3.5-5.0); Albumin/Globulin Ratio 1.2 (1.1-1.8); Alkaline Phosphatase 113 U/L (38-126); Anion Gap 12.4 mEq/L (5-15); Aspartate Amino Transferase 30 U/L (14-36); Bilirubin,Total 0.2 mg/dl (0.2-1.3); Blood Urea Nitrogen 14 mg/dl (7-17); Calcium 9.4 mg/dl (8.4-10.2); Carbon Dioxide 28 mmol/L (22.0-30.0); Chloride 105 mmol/L (98-107); Estimated Glomerular Filt Rate 110 ml/min (>60); GFR (African American) 133 ML/MIN (>60); Globulin 3.3 g/dL (1.3-3.2); Glucose 155 mg/dl (74-100); Potassium 4.4 mmoL/L (3.5-5.1); Sodium 141 mmol/L (136-145); Total Protein,Serum 7.4 g/dl (6.3-8.2)
[2021-06-20 17:43] LABS: Basophils # 0.1 K/mm3 (0-0.2); Basophils % 0.4 % (0.1-2.0); Hematocrit 41.2 % (37.0-47.0); Hemoglobin 13.9 g/dL (12.2-16.2); Lymphocytes # 5.1 K/mm3 (0.7-4.5); Lymphocytes % 31.5 % (10-50); Mean Corpuscular HGB Conc 33.9 g/dL (31.8-35.4); Mean Corpuscular Hemoglobin 30.2 pg (27.0-31.2); Mean Platelet Volume 9.4 fl (7.4-10.4); Monocytes # 1.1 K/mm3 (0.1-1.0); Monocytes % 6.6 % (1.7-9.3); Neutrophils % 61.6 % (37.0-80.0); Platelet Count 310 K/mm3 (142-424); Red Blood Count 4.62 M/mm3 (4.20-5.40); Red Cell Distribution Width 13.8 % (11.5-17.5); White Blood Count 16.2 K/mm3 (4.8-10.8)
[2021-06-20 17:50] LABS: Thyroid Stimulating Hormone 2.11 uIU/mL (0.465-4.68)
[2021-06-20 18:07] LABS: MANUAL DIFFERENTIAL MANUAL DIFFERENTIAL (MANUAL DIFF)
[2021-06-20 19:27] LABS: Lymphocytes % 19 % (10-50); Monocytes % 6 % (2-9); Neutrophils % 72 % (42-76); Total Cells Counted 100
[2021-06-20 19:28] LABS: Platelet Estimate Normal; RBC Morphology Normal
== END ==
PROVIDERS: Visit Provider Nurse Practitioner Family
DX: R73.03 Prediabetes (principal); E66.9 Obesity, unspecified; Z68.42 Body mass index [BMI] 45.0-49.9, adult; Z79.899 Other long term (current) drug therapy
CPT/HCPCS: 36415; 80053; 84436; 84443; 85007; 85025

== ENCOUNTER 2021-09-01 18:08 | Emergency (ER) | payer BC, SELFPAY ==
[2021-09-01 21:18] VITALS: BMI 44.9
[2021-09-01 21:20] VITALS: BP 144/88; PULSE 84; RESP 20; TEMP 36.7; O2SAT 100; BMI 44.9
--- NOTE | 2021-09-01 21:21 | CT_ITS ---
PROCEDURE INFORMATION: Exam: CT Abdomen And Pelvis With Contrast Exam date and time: 09/01/2021 9:21 PM Age: 40 years old Clinical indication: Abdominal pain; Prior surgery; Surgery type: Demetria & appendectomy; Additional info: Upper abd pain 3mn S/P chol appy TECHNIQUE: Imaging protocol: Computed tomography of the abdomen and pelvis with contrast. Radiation optimization: All CT scans at this facility use at least one of these dose optimization techniques: automated exposure control; mA and/or kV adjustment per patient size (includes targeted exams where dose is matched to clinical indication); or iterative reconstruction. Contrast material: ISOVUE; Contrast volume: 75 ml; Contrast route: IV; COMPARISON: RUQ US RUQ-(ABD LTD)1ORGAN/QUAD/FU 10/07/2016 9:42 AM FINDINGS: Lungs: Calcified granuloma within the lingula. Liver: Normal. Gallbladder and bile ducts: Gallbladder surgically absent. Pancreas: Normal. Spleen: Normal. Adrenal glands: Normal. No mass. Kidneys and ureters: Normal. Stomach and bowel: Colonic diverticulosis. Multiple loops of nondilated, gas and fluid-filled distal small bowel and colon, most compatible with enteritis/diarrhea. Appendix: Appendix is surgically absent. Intraperitoneal space: Unremarkable. No free air. No significant fluid collection. Vasculature: Phleboliths within the pelvis. Lymph nodes: Unremarkable. No enlarged lymph nodes. Urinary bladder: Unremarkable as visualized. Reproductive: Uterus is surgically absent. Bones/joints: No acute abnormality. Soft tissues: Normal. IMPRESSION: Multiple loops of nondilated, gas and fluid-filled distal small bowel and colon, most compatible with enteritis/diarrhea.
[2021-09-01 21:31] LABS: Microscopic, Urine URINE MICROSCOPIC (MICROSCOPIC)
--- NOTE | 2021-09-01 21:32 | HMH.EDNVD ---
ED Disposition Clinical Impression: Sphincter of Oddi dysfunction Abdominal pain Qualifiers: Abdominal location: periumbilical Qualified Code(s): R10.33 - Periumbilical pain Disposition: Home, Self-Care Condition on Discharge: Good Instructions: DI for Acute Abdominal Pain Additional Instructions: see pcp this week and trial of meds Prescriptions: Dicyclomine HCl [Bentyl 10mg capsule] 10 mg PO TID #21 cap Transmission Status: Pending to [id number] Referrals: Patrick Brown MD [Primary Care Provider] - - Critical Care Critical Care Time: No Attestation: On 09/01/21, the high probability of a clinically significant, sudden or life threatening deterioration of the following system(s) required my full and direct attention, intervention and personal management. The time I documented below is in addition to time spent performing reported procedures but includes the following listed in this critical care notation. Medical Decision Making - Medical Records Medical records reviewed: Yes: I reviewed the patient's medical records. - [place] Inquiry Pt receiving controlled substance: No Vital Signs: 09/01/21 21:20 Temperature 98.0 F Temperature Source Oral Pulse Rate [Right] 84 Respiratory Rate 20 Blood Pressure [Left Arm] 144/88 H Blood Pressure Mean [Left Arm] 106 Blood Pressure Source [Left Arm] Automatic Cuff 02 Sat by Pulse Oximetry 100 Oxygen Delivery Method Room Air - Lab Data Lab results reviewed: Yes: I reviewed the patient's lab results. Lab Results 09/01/21 19:31: Urine Color Yellow, Urine Appearance Clear, Urine pH 6.0, Ur Specific [place] >= 1.030, Urine Protein Negative, Urine Glucose (UA) Negative, Urine Ketones Negative, Urine Blood Negative, Urine Nitrate Negative, Urine Bilirubin Negative, Urine Urobilinogen 0.2, Ur Leukocyte Esterase Negative, Urine RBC Occasional, Urine WBC Occasional, Ur Squamous Epith Cells Occasional, Urine Bacteria Trace 09/01/21 19:40: WBC 17.7 H, RBC 5.46 H, Hgb 15.8, Hct 47.8 H, MCV 87.5, MCH 29.0, MCHC 33.2, RDW 13.1, Plt Count 326, MPV 8.5, Neut % (Auto) 68.0, Lymph % (Auto) 24.8, [place] % (Auto) 6.8, Eos % (Auto) 0.1, Baso % (Auto) 0.3, Neut # (Auto) 12.0 H, Lymph # (Auto) 4.4, Mobile # (Auto) 1.2 H, Eos # (Auto) 0.0, Baso # (Auto) 0.0, Total Counted 100, Neutrophils % (Manual) 51, Lymphocytes % (Manual) 33, Monocytes % (Manual) 15 H, Eosinophils % (Manual) 1, Nucleated RBCs 2, Platelet Estimate Normal, ESR 14 09/01/21 19:40: Sodium 138, Potassium 4.1, Chloride 97 L, Carbon Dioxide 32 H, Anion Gap 13.1, BUN 20 H, Creatinine 0.80, Estimated Creat Clear 83, Estimated GFR 79, Est GFR ( Amer) 96, Glucose 109 H, Calcium 10.2, Total Bilirubin 0.6, AST 58 H, ALT 86 H, Alkaline Phosphatase 143 H, C-Reactive Protein 9.5 H, Total Protein 7.8, Albumin 4.5, Globulin 3.3 H, Albumin/Globulin Ratio 1.4, Amylase 51, Lipase 36, Procalcitonin 0.067 Result diagrams: 09/01/21 19:40 09/01/21 19:40 Orders (Tests/Meds): ED MEDICATIONS Generic Name Dose Route Start Last Admin Trade Name Freq PRN Reason Stop Dose Admin Sodium Chloride 1,000 mls @ 999 mls/hr 09/01/21 21:30 09/01/21 21:50 Sod Chlor 0.9% 1000ml Bag IV 09/01/21 22:30 999 mls/hr .Q1H1M LEDY Administration Sodium Chloride 8 ml 09/01/21 21:25 Sodium Chloride 0.9% 10ml Vial IV 10/01/21 21:24 NEEDED PRN dilute pepcid Discontinued Medications Generic Name Dose Route Start Last Admin Trade Name Freq PRN Reason Stop Dose Admin Famotidine 20 mg 09/01/21 21:25 09/01/21 21:50 Famotidine 20mg/2ml Vial IV 09/01/21 21:26 20 mg ONCE ONE Administration Iopamidol 75 ml 09/01/21 22:02 09/01/21 22:05 Iopamidol-370 (76%);100ml Bottle IV 09/01/21 22:03 75 ml ONCE ONE Administration Ketorolac Tromethamine 30 mg 09/01/21 21:25 09/01/21 21:50 Ketorolac 30mg/Ml Vial IV 09/01/21 21:26 30 mg ONCE ONE Administration Metoclopramide HCl 10 mg 09/01/21 21
[2021-09-01 21:36] LABS: Alanine Aminotransferase 86 U/L (12-78); Albumin Level 4.5 g/dl (3.5-5.0); Albumin/Globulin Ratio 1.4 (1.1-1.8); Alkaline Phosphatase 143 U/L (38-126); Amylase 51 U/L (30-110); Anion Gap 13.1 mEq/L (5-15); Aspartate Amino Transferase 58 U/L (14-36); Bilirubin,Total 0.6 mg/dl (0.2-1.3); Blood Urea Nitrogen 20 mg/dl (7-17); Calcium 10.2 mg/dl (8.4-10.2); Carbon Dioxide 32 mmol/L (22.0-30.0); Chloride 97 mmol/L (98-107); Creatinine Clearance Estimated 83 mL/min (50-200); Estimated Glomerular Filt Rate 79 ml/min (>60); GFR (African American) 96 ML/MIN (>60); Globulin 3.3 g/dL (1.3-3.2); Glucose 109 mg/dl (74-100); Lipase 36 U/L (23-300); Potassium 4.1 mmoL/L (3.5-5.1); Sodium 138 mmol/L (136-145); Total Protein,Serum 7.8 g/dl (6.3-8.2)
[2021-09-01 21:36] LABS: Appearance,Urine CLEAR (Clear); Bilirubin,Urine Negative (Negative); Blood, Urine Negative (Negative); Color,Urine YELLOW (Yellow); Glucose,Urine (UA) Negative (Negative); Ketones,Urine Negative (Negative); Leukocyte Esterase,Urine Negative (Negative); Nitrate,Urine Negative (Negative); Protein,Urine Negative (Negative); Specific Gravity, Urine >= 1.030 (1.005-1.030); Urobilinogen,Urine 0.2 EU/dl (0.2)
[2021-09-01 21:37] LABS: Basophils % 0.3 % (0.1-2.0); Eosinophils % 0.1 % (0.1-12.0); Hematocrit 47.8 % (37.0-47.0); Hemoglobin 15.8 g/dL (12.2-16.2); Lymphocytes # 4.4 K/mm3 (0.7-4.5); Lymphocytes % 24.8 % (10-50); Mean Corpuscular HGB Conc 33.2 g/dL (31.8-35.4); Mean Corpuscular Volume 87.5 fl (81-99); Mean Platelet Volume 8.5 fl (7.4-10.4); Monocytes # 1.2 K/mm3 (0.1-1.0); Monocytes % 6.8 % (1.7-9.3); Platelet Count 326 K/mm3 (142-424); Red Blood Count 5.46 M/mm3 (4.20-5.40); Red Cell Distribution Width 13.1 % (11.5-17.5); White Blood Count 17.7 K/mm3 (4.8-10.8)
[2021-09-01 21:41] LABS: C-Reactive Protein 9.5 mg/L (0-4)
[2021-09-01 21:46] LABS: MANUAL DIFFERENTIAL MANUAL DIFFERENTIAL (MANUAL DIFF)
[2021-09-01 21:55] LABS: Procalcitonin 0.067 ng/mL (0.0-2.0)
[2021-09-01 22:01] LABS: Bacteria,Urine Trace /lpf; RBC,Urine Occasional #/hpf (0-3); Squamous Epithelial Cell,Urine Occasional #/hpf (0-5); WBC,Urine Occasional #/hpf (0-3)
[2021-09-01 22:16] LABS: Eosinophils % 1 % (0-3); Lymphocytes % 33 % (10-50); Monocytes % 15 % (2-9); Neutrophils % 51 % (42-76); Nucleated Red Blood Cells 2; Platelet Estimate Normal; Total Cells Counted 100
[2021-09-01 22:18] LABS: Erythrocyte Sedimentation Rate 14 mm/hr (0-20)
[2021-09-01 23:41] VITALS: BP 134/75; PULSE 80; RESP 18; TEMP 36.7; O2SAT 100
== END 2021-09-01 23:46 | disposition home or self-care (01) ==
PROVIDERS: Emergency Provider Emergency Medicine; PCP Emergency Medicine
DX: K83.4 Spasm of sphincter of Oddi (principal); F41.8 Other specified anxiety disorders; K21.9 Gastro-esophageal reflux disease without esophagitis; E78.5 Hyperlipidemia, unspecified; G43.709 Chronic migraine without aura, not intractable, without status migrainosus
CPT/HCPCS: 74177; 80053; 81001; 82150; 83690; 84145; 85007; 85025; 85651; 86140; 96365; 96375; 99283; J2405; Q9967

== ENCOUNTER → 2022-02-23 14:05 | Outpatient (CLI) | payer OTHER, SELFPAY ==
[2022-02-23 13:34] LABS: Hemoglobin A1C 5.9 % (4.0-6.0)
== END ==
PROVIDERS: PCP Nurse Practitioner Family; Visit Provider Nurse Practitioner Family
DX: R73.03 Prediabetes (principal)
CPT/HCPCS: 83036

== ENCOUNTER 2022-03-29 09:37 | Emergency (ER) | payer OTHER, SELFPAY ==
[2022-03-29 09:40] VITALS: BP 133/79; PULSE 85; RESP 22; TEMP 36.7; O2SAT 96; BMI 40.1
--- NOTE | 2022-03-29 09:53 | HMH.EDUTC ---
[place] Disposition Clinical Impression: Exposure to COVID-19 virus Maxillary sinusitis, acute Qualifiers: Recurrence: non-recurrent Qualified Code(s): J01.00 - Acute maxillary sinusitis, unspecified Disposition: Home, Self-Care Condition on Discharge: Good Instructions: DI for Sinusitis Additional Instructions: Start antibiotic patient to take as ordered for a full length of time even if you feel better. Sinus infections do not get better overnight. It may take 2-3 days to notice much improvement so be sure to use conservative measures as discussed for symptoms. Flonase 1 spray each nostril daily to help with nasal congestion, sinus and ear pressure/information Increase fluids Humidifier/vaporizer as needed Tylenol and ibuprofen as needed for fever or pain. If symptoms do not improve or get worse return or be seen in the ER Follow-up with primary care this week covid swab was sent to lab, call tomorrow for results. self isolate until test results are known to be negative Prescriptions: Fluticasone Propionate [Flonase 50mcg nasal spray 16gm] 1 spr NS DAILY 14 Days #9.9 ml Prescription Printed Azithromycin [Zithromax 250mg tab] 250 mg PO DIRECTED #6 tab Prescription Printed Referrals: Patrick Brown MD [Primary Care Provider] - Forms: Work/School Release Time of Disposition: 10:00 Medical Decision Making - [place] Inquiry Pt receiving controlled substance: No Orders (Tests/Meds): ORDERS Category Date Time Status Covid-19 Nasal PCR ([facility]) Routine Lab 03/29/22 09:43 Received [place] HPI - General Chief complaint: [facility]gent [facility] Stated complaint: covid exposure, fever, chills, cough Time Seen by Provider: 03/29/22 09:53 Source of Information: Patient Limitations: No Limitations - History of Present Illness Provider Complaint: 41 yr old female presents for cough,body aches,fever,sinus pressure,sinus pain and coughing up thick yellow sputum since yesterday. has been exposed to covid - Related Data Home Medications Medication Instructions Recorded Confirmed cholecalciferol (vitamin D3) 50 2,500 unit PO DAILY tab 11/15/18 02/24/22 mcg (2,000 unit) tablet calcium carbonate 500 mg calcium 500 mg PO DAILY 08/10/19 02/24/22 (1,250 mg) chewable tablet Aspirin 81 mg PO DAILY 10/27/20 02/24/22 Sumatriptan Succ/Naproxen Sod See Rx Instructions PO .COMPLEX 10/27/20 02/24/22 [Sumatriptan-Naproxen 85-500 mg] semaglutide 0.5 mg SQ WEEKLY ml 08/11/21 02/24/22 Previous Rx's Medication Instructions Recorded fluticasone propionate 50 1 spray INTRANASAL QDAY #9.9 ml 10/18/20 mcg/actuation nasal spray,suspension loratadine 10 mg tablet 10 mg PO DAILY PRN #90 tab 01/14/21 pantoprazole 40 mg tablet,delayed See Rx Instructions .ROUTE 07/07/21 release .COMPLEX #30 tab sertraline 100 mg tablet 100 mg PO DAILY #30 tab 07/14/21 metformin 500 mg tablet,extended 500 mg PO DAILY #30 tab 07/18/21 release 24 hr atorvastatin 10 mg tablet 10 mg PO HS #90 tab 02/24/22 bisoprolol fumarate 10 mg tablet 10 mg PO BID #180 tab 02/24/22 famotidine 20 mg tablet 20 mg PO DAILY #90 tab 02/24/22 furosemide 80 mg tablet 80 mg PO TID #270 tab 02/24/22 spironolactone 100 mg tablet See Rx Instructions .ROUTE 02/24/22 .COMPLEX #90 tab verapamil 240 mg 24 hr See Rx Instructions .ROUTE 02/24/22 capsule,extended release .COMPLEX #90 cap Azithromycin [Zithromax 250mg 250 mg PO DIRECTED #6 tab 03/29/22 tab] Fluticasone Propionate [Flonase 1 spr NS DAILY 14 Days #9.9 ml 03/29/22 50mcg nasal spray 16gm] Allergies Allergy/AdvReac Type Severity Reaction Status Date / Time No Known Drug Allergies Allergy Unknown Verified 02/24/22 09:39 [NO KNOWN DRUG ALLERGIES] [facility] History - Hepatitis A Screen Attestation statement:: This patient has been screened for Hepatitis A risk factors. I have reviewed the patient's past medical history: Yes Medical History: Reports:: Anxiety,
[2022-03-29 10:02] VITALS: BP 133/79; PULSE 85; RESP 22; TEMP 36.7; O2SAT 96
== END 2022-03-29 10:03 | disposition home or self-care (01) ==
PROVIDERS: Emergency Provider Nurse Practitioner Family; PCP Emergency Medicine
DX: U07.1 COVID-19 (principal); J01.00 Acute maxillary sinusitis, unspecified
CPT/HCPCS: 99212; C9803; G0463; U0003; U0005

== ENCOUNTER → 2022-08-10 09:45 | Outpatient (CLI) | payer OTHER, SELFPAY ==
[2022-08-10 10:32] LABS: Basophils # 0.2 K/mm3 (0-0.2); Basophils % 1.3 % (0.1-2.0); Eosinophils # 0.1 K/mm3 (0.0-0.4); Eosinophils % 0.6 % (0.1-12.0); Hematocrit 41.7 % (37.0-47.0); Hemoglobin 14.2 g/dL (12.2-16.2); Lymphocytes % 41.2 % (10-50); Mean Corpuscular HGB Conc 34.1 g/dL (31.8-35.4); Mean Corpuscular Volume 85.1 fl (81-99); Mean Platelet Volume 9.3 fl (7.4-10.4); Monocytes # 0.8 K/mm3 (0.1-1.0); Monocytes % 6.6 % (1.7-9.3); Neutrophils # 6.1 K/mm3 (1.8-7.8); Neutrophils % 50.2 % (37.0-80.0); Platelet Count 267 K/mm3 (142-424); Red Blood Count 4.91 M/mm3 (4.20-5.40); Red Cell Distribution Width 13.4 % (11.5-17.5); White Blood Count 12.1 K/mm3 (4.8-10.8)
[2022-08-10 10:47] LABS: Hemoglobin A1C 5.7 % (4.0-6.0)
[2022-08-10 11:36] LABS: Chloride 106 mmol/L (98-107); Potassium 4.1 mmoL/L (3.5-5.1); Sodium 140 mmol/L (136-145)
[2022-08-10 11:38] LABS: Alanine Aminotransferase 29 U/L (12-78); Aspartate Amino Transferase 23 U/L (14-36); Blood Urea Nitrogen 18 mg/dl (7-17); Estimated Glomerular Filt Rate 110 ml/min (>60); GFR (African American) 133 ML/MIN (>60)
[2022-08-10 11:39] LABS: Albumin Level 4.2 g/dl (3.5-5.0); Albumin/Globulin Ratio 1.8 (1.1-1.8); Alkaline Phosphatase 151 U/L (38-126); Anion Gap 15.1 mEq/L (5-15); Bilirubin,Total 0.2 mg/dl (0.2-1.3); Calcium 9.8 mg/dl (8.4-10.2); Carbon Dioxide 23 mmol/L (22.0-30.0); Chol/HDL Ratio 5.6 (1-3.5); Cholesterol 219 mg/dl (140-200); Globulin 2.4 g/dL (1.3-3.2); Glucose 92 mg/dl (74-100); HDL Cholesterol 39 mg/dl (40-60); Total Protein,Serum 6.6 g/dl (6.3-8.2); Triglycerides 116 mg/dl (30-150); VLDL Cholesterol 23 mg/dL (0-40)
[2022-08-10 11:50] LABS: Direct LDL Cholesterol 134.65 mg/dL (100-129)
[2022-08-10 12:12] LABS: 25-OH Vitamin D, Total 36.7 ng/mL (30-100)
[2022-08-10 12:14] LABS: Ferritin 102 ng/ml (6.24-137)
== END ==
PROVIDERS: Nurse Practitioner Family; PCP Family Medicine; Visit Provider Family Medicine
DX: R73.03 Prediabetes (principal); E78.5 Hyperlipidemia, unspecified; K21.9 Gastro-esophageal reflux disease without esophagitis; G43.909 Migraine, unspecified, not intractable, without status migrainosus; G25.81 Restless legs syndrome; E66.9 Obesity, unspecified
CPT/HCPCS: 36415; 80053; 80061; 82043; 82306; 82728; 83036; 84443; 85025

== ENCOUNTER → 2022-08-25 10:32 | Outpatient (CLI) | payer OTHER, SELFPAY ==
--- NOTE | 2022-08-25 10:38 | XR_ITS ---
FINAL REPORT CLINICAL HISTORY: pain in right ankle FINDINGS: Right ankle Three views were obtained. There is no acute fracture or dislocation. The joint spaces appear normal. No soft tissue abnormality is identified. Note is made of calcaneal spurs. IMPRESSION: No acute process. Reviewed, Interpreted and Dictated by Roman Swain III, MD Transcribed by Thu Maxwell Authenticated and [facility]
== END ==
PROVIDERS: PCP Family Medicine; Visit Provider Family Medicine
DX: M25.571 Pain in right ankle and joints of right foot (principal)
CPT/HCPCS: 73610

== ENCOUNTER → 2022-10-08 14:44 | Outpatient (CLI) | payer OTHER, SELFPAY ==
[2022-10-08 15:36] LABS: Basophils # 0.1 K/mm3 (0-0.2); Basophils % 0.9 % (0.1-2.0); Eosinophils # 0.2 K/mm3 (0.0-0.4); Hematocrit 44.4 % (37.0-47.0); Hemoglobin 14.8 g/dL (12.2-16.2); Lymphocytes # 5.4 K/mm3 (0.7-4.5); Lymphocytes % 34.5 % (10-50); Mean Corpuscular HGB Conc 33.3 g/dL (31.8-35.4); Mean Corpuscular Hemoglobin 28.5 pg (27.0-31.2); Mean Corpuscular Volume 85.4 fl (81-99); Mean Platelet Volume 9.1 fl (7.4-10.4); Monocytes # 1.1 K/mm3 (0.1-1.0); Monocytes % 6.7 % (1.7-9.3); Neutrophils # 8.9 K/mm3 (1.8-7.8); Platelet Count 346 K/mm3 (142-424); Red Cell Distribution Width 13.3 % (11.5-17.5); White Blood Count 15.6 K/mm3 (4.8-10.8)
[2022-10-08 15:46] LABS: MANUAL DIFFERENTIAL MANUAL DIFFERENTIAL (MANUAL DIFF)
[2022-10-08 15:57] LABS: Alanine Aminotransferase 31 U/L (12-78); Albumin Level 4.5 g/dl (3.5-5.0); Albumin/Globulin Ratio 1.7 (1.1-1.8); Alkaline Phosphatase 155 U/L (38-126); Anion Gap 14.1 mEq/L (5-15); Aspartate Amino Transferase 25 U/L (14-36); Bilirubin,Total 0.3 mg/dl (0.2-1.3); Blood Urea Nitrogen 26 mg/dl (7-17); Calcium 9.4 mg/dl (8.4-10.2); Carbon Dioxide 25 mmol/L (22.0-30.0); Chloride 103 mmol/L (98-107); Chol/HDL Ratio 4.3 (1-3.5); Cholesterol 182 mg/dl (140-200); Estimated Glomerular Filt Rate 79 ml/min (>60); GFR (African American) 95 ML/MIN (>60); Globulin 2.7 g/dL (1.3-3.2); Glucose 123 mg/dl (74-100); HDL Cholesterol 42 mg/dl (40-60); Potassium 4.1 mmoL/L (3.5-5.1); Sodium 138 mmol/L (136-145); Total Protein,Serum 7.2 g/dl (6.3-8.2); Triglycerides 240 mg/dl (30-150); VLDL Cholesterol 48 mg/dL (0-40)
[2022-10-08 16:08] LABS: Direct LDL Cholesterol 104.87 mg/dL (100-129)
[2022-10-08 16:10] LABS: Lymphocytes % 43 % (10-50); Monocytes % 5 % (2-9); Neutrophils % 52 % (42-76); Platelet Estimate Normal; RBC Morphology Normal; Total Cells Counted 100
[2022-10-12 18:08] LABS: Alkaline Phosphatase 166 IU/L (44-121); Bone Fraction: 34 % (14-68); Intestinal Frac.: 7 % (0-18); Liver Fraction: 59 % (18-85)
== END ==
PROVIDERS: PCP Family Medicine; Visit Provider Family Medicine
DX: R74.8 Abnormal levels of other serum enzymes (principal); D72.829 Elevated white blood cell count, unspecified; E78.5 Hyperlipidemia, unspecified
CPT/HCPCS: 36415; 80053; 80061; 84075; 84080; 85007; 85025

== ENCOUNTER → 2022-10-26 13:54 | Outpatient (CLI) | payer OTHER, SELFPAY ==
--- NOTE | 2022-10-26 14:21 | CT_ITS ---
FINAL REPORT CLINICAL HISTORY: MIGRAINE,HEADACHE FINDINGS: Axial images of the head were obtained without and with contrast. Coronal reformatted images were also obtained. This study was performed with techniques to keep radiation doses as low as reasonably achievable (ALARA). Individualized dose reduction techniques using automated exposure control or adjustment of mA and/or kV according to the patient's size were employed. There is no evidence of intracranial hemorrhage or mass. There is no evidence of acute infarct. There is no evidence of shift of the midline structures. No skull abnormality is seen on the bone window images. No abnormal contrast enhancement is seen. IMPRESSION: No acute intracranial abnormality identified. Reviewed, Interpreted and Dictated by Anthony Henry MD Transcribed by Pop Gallardo Authenticated and [facility]
== END ==
LOC: RAD 13:55
PROVIDERS: PCP Family Medicine; Visit Provider Family Medicine
DX: G43.909 Migraine, unspecified, not intractable, without status migrainosus (principal)
CPT/HCPCS: 70470; Q9967

== ENCOUNTER 2022-10-31 15:14 | Emergency (ER) | payer OTHER, SELFPAY ==
[2022-10-31 15:20] VITALS: BP 124/96; PULSE 94; RESP 21; TEMP 36.9; O2SAT 97; BMI 44.1
--- NOTE | 2022-10-31 15:30 | EXP.UTC ---
Discharge Plan Disposition Patient Disposition: Home, Self-Care Condition: Good Prescriptions Prescriptions: New azithromycin [Zithromax] 250 mg tablet 250 mg PO UD DOSE PK Qty: 6 0RF Rx Instructions: Take two (2) tablets today, then one (1) tablet days #2 thru #5 benzonatate [benzonatate] 100 mg capsule 100 mg PO TIDP PRN (Reason: Cough) Qty: 30 0RF methylprednisolone 4 mg Tablets,Dose Pack 4 mg PO DIRECTED Qty: 21 0RF No Action bisoprolol fumarate 10 mg tablet 10 mg PO BID Qty: 180 3RF furosemide [Lasix] 80 mg tablet 80 mg PO TID Qty: 270 3RF spironolactone 100 mg tablet See Rx Instructions .ROUTE .COMPLEX Qty: 90 3RF Dose Instruction: Take 1 tablet by mouth once daily Rx Instructions: Take 1 tablet by mouth once daily verapamil 240 mg capsule,ext rel. pellets 24 hr See Rx Instructions .ROUTE .COMPLEX Qty: 90 3RF Dose Instruction: Take 1 capsule by mouth once daily Rx Instructions: Take 1 capsule by mouth once daily fluoxetine [Prozac] 20 mg capsule 20 mg PO DAILY Qty: 30 1RF sumatriptan succinate [Imitrex] 100 mg tablet See Rx Instructions PO .COMPLEX Qty: 9 0RF Rx Instructions: take 1 tab at onset of headache; if no relief, may repeat 1 tab after at least 2 hrs; max = 2 tabs/24 hrs PO Ozempic 1 mg/dose (4 mg/3 mL) pen injector 1 mg SQ WEEKLY Qty: 3 1RF topiramate [Topamax] 50 mg tablet 50 mg PO DAILY Qty: 30 1RF atorvastatin 20 mg tablet 20 mg PO DAILY Qty: 30 2RF famotidine [Pepcid] 20 mg tablet 20 mg PO DAILY Qty: 90 3RF pantoprazole 40 mg tablet,delayed release (DR/EC) 40 mg PO DAILY Qty: 30 5RF cholecalciferol (vitamin D3) 2,000 unit tablet 2,500 unit PO DAILY calcium carbonate [Calcium 500] 500 mg calcium (1,250 mg) tablet,chewable 500 mg PO DAILY loratadine [Loradamed] 10 mg tablet 10 mg PO DAILY PRN (Reason: allergy symptoms) Qty: 90 1RF Referrals Follow up/Referrals: Tata-Donohue,Sabra, DO [Primary Care Provider] - See instructions Activity Restrictions/Add. Instructions Additional Instructions/Restrictions: Drink plenty of fluids. Take tylenol or ibuprofen for pain or fever. Take the medications as directed. Follow up with your regular doctor. GO TO THE ER FOR ANY WORSENING SYMPTOMS Clinical Impressions Clinical Impression: Sinusitis, Bronchitis Stand Alone Forms Stand Alone Forms: Work/School Release Instructions Patient Instructions: DI for Sinusitis, DI for Acute Bronchitis Discharge ED Provider: Ash Acuna [facility] [place] General Stated complaint: cough,runny nose Time Seen by Provider: 10/31/22 15:25 History of Present Illness Provider Complaint: She states that for the past 5 days she has had productive cough with yellowish sputum, low grade fever, sinus congestion, ear pain, Related Data Home Medications Medication Instructions Recorded Confirmed cholecalciferol (vitamin D3) 50 2,500 unit PO DAILY Supplement 11/15/18 10/26/22 mcg (2,000 unit) tablet calcium carbonate 500 mg calcium 500 mg PO DAILY Supplement 08/10/19 10/26/22 (1,250 mg) chewable tablet (Calcium 500) Previous Rx's Medication Instructions Recorded loratadine 10 mg tablet (Loradamed) 10 mg PO DAILY PRN allergy 01/14/21 symptoms #90 tabs bisoprolol fumarate 10 mg tablet 10 mg PO BID #180 tabs 02/24/22 furosemide 80 mg tablet (Lasix) 80 mg PO TID #270 tabs 02/24/22 spironolactone 100 mg tablet See Rx Instructions .Route 02/24/22 .COMPLEX #90 tabs verapamil 240 mg 24 hr See Rx Instructions .Route 02/24/22 capsule,extended release .COMPLEX #90 caps fluoxetine 20 mg capsule (Prozac) 20 mg PO DAILY #30 caps 07/22/22 sumatriptan succinate 100 mg See Rx Instructions PO .COMPLEX #9 07/23/22 tablet (Imitrex) tabs atorvastatin 20 mg tablet 20 mg PO DAILY #30 tabs 10/09/22 famotidine 20 mg tablet (Pepcid) 20 mg PO DAILY #90 tabs 10/09/22 pantoprazo
[2022-10-31 15:36] VITALS: BP 124/96; PULSE 94; RESP 21; TEMP 36.9; O2SAT 97
== END 2022-10-31 15:58 | disposition home or self-care (01) ==
PROVIDERS: Emergency Provider Nurse Practitioner Family; PCP Family Medicine
DX: J32.9 Chronic sinusitis, unspecified (principal); J40 Bronchitis, not specified as acute or chronic
CPT/HCPCS: 99212; 99213; G0463

== ENCOUNTER 2022-11-13 00:37 | Emergency (ER) | payer OTHER, SELFPAY ==
[2022-11-13 00:38] VITALS: BP 143/100; PULSE 80; RESP 16; TEMP 36.6; O2SAT 96; BMI 43.2
[2022-11-13 01:00] VITALS: BP 145/86; PULSE 81; O2SAT 92
--- NOTE | 2022-11-13 01:51 | HMH.EDGENADL ---
Discharge Plan Disposition Patient Disposition: Home, Self-Care Condition: Good Chief Complaint: Headache Prescriptions Prescriptions: No Action bisoprolol fumarate 10 mg tablet 10 mg PO BID Qty: 180 3RF furosemide [Lasix] 80 mg tablet 80 mg PO TID Qty: 270 3RF spironolactone 100 mg tablet See Rx Instructions .ROUTE .COMPLEX Qty: 90 3RF Dose Instruction: Take 1 tablet by mouth once daily Rx Instructions: Take 1 tablet by mouth once daily verapamil 240 mg capsule,ext rel. pellets 24 hr See Rx Instructions .ROUTE .COMPLEX Qty: 90 3RF Dose Instruction: Take 1 capsule by mouth once daily Rx Instructions: Take 1 capsule by mouth once daily fluoxetine [Prozac] 20 mg capsule 20 mg PO DAILY Qty: 30 1RF sumatriptan succinate [Imitrex] 100 mg tablet See Rx Instructions PO .COMPLEX Qty: 9 0RF Rx Instructions: take 1 tab at onset of headache; if no relief, may repeat 1 tab after at least 2 hrs; max = 2 tabs/24 hrs PO Ozempic 1 mg/dose (4 mg/3 mL) pen injector 1 mg SQ WEEKLY Qty: 3 1RF topiramate [Topamax] 50 mg tablet 50 mg PO DAILY Qty: 30 1RF atorvastatin 20 mg tablet 20 mg PO DAILY Qty: 30 2RF famotidine [Pepcid] 20 mg tablet 20 mg PO DAILY Qty: 90 3RF pantoprazole 40 mg tablet,delayed release (DR/EC) 40 mg PO DAILY Qty: 30 5RF cholecalciferol (vitamin D3) 2,000 unit tablet 2,500 unit PO DAILY calcium carbonate [Calcium 500] 500 mg calcium (1,250 mg) tablet,chewable 500 mg PO DAILY loratadine [Loradamed] 10 mg tablet 10 mg PO DAILY PRN (Reason: allergy symptoms) Qty: 90 1RF azithromycin [Zithromax] 250 mg tablet 250 mg PO UD DOSE PK Qty: 6 0RF Rx Instructions: Take two (2) tablets today, then one (1) tablet days #2 thru #5 benzonatate [benzonatate] 100 mg capsule 100 mg PO TIDP PRN (Reason: Cough) Qty: 30 0RF methylprednisolone 4 mg Tablets,Dose Pack 4 mg PO DIRECTED Qty: 21 0RF Referrals Follow up/Referrals: Provider,Referral, MD [Primary Care Provider] - See instructions Activity Restrictions/Add. Instructions Additional Instructions/Restrictions: IssuesReturn for worsening headache or any other concerning neurological is within 8 hours otherwise follow-up with your primary care physician within the next few days Clinical Impressions Clinical Impression: Migraine Discharge ED Provider: Benigno Cordova General Adult HPI General Chief complaint: Headache Stated complaint: Migraine with vomiting Time Seen by Provider: 11/13/22 01:00 Mode of Arrival: Ambulatory Source of Information: Patient Limitations: No Limitations Description of Symptoms (Recalled from ER Triage Doc. by RN): pt c/o migraine with vomitting History of Present Illness HPI narrative: 41-year-old female with history of migraine diastolic heart failure obesity presents with migraine. She says the headache is typical for her headaches. Is throbbing frontal headache worse with light and sound. No numbness weakness or tingling arms or legs. No vision changes or dizziness. No head injury. Headache is constant and sometimes relieved with IV fluids Related Data Home Medications Medication Instructions Recorded Confirmed cholecalciferol (vitamin D3) 50 2,500 unit PO DAILY Supplement 11/15/18 10/26/22 mcg (2,000 unit) tablet calcium carbonate 500 mg calcium 500 mg PO DAILY Supplement 08/10/19 10/26/22 (1,250 mg) chewable tablet (Calcium 500) Previous Rx's Medication Instructions Recorded loratadine 10 mg tablet (Loradamed) 10 mg PO DAILY PRN allergy 01/14/21 symptoms #90 tabs bisoprolol fumarate 10 mg tablet 10 mg PO BID #180 tabs 02/24/22 furosemide 80 mg tablet (Lasix) 80 mg PO TID #270 tabs 02/24/22 spironolactone 100 mg tablet See Rx Instructions .Route 02/24/22 .COMPLEX #90 tabs verapamil 240 mg 24 hr See Rx Instructions .Route 02/24/22 capsule,extended release .COMPLEX #90 caps fluox
[2022-11-13 01:56] VITALS: BP 139/71; PULSE 78; RESP 19; TEMP 36.5; O2SAT 98
== END 2022-11-13 01:59 | disposition home or self-care (01) ==
PROVIDERS: Emergency Provider Emergency Medicine
DX: G43.909 Migraine, unspecified, not intractable, without status migrainosus (principal); F31.81 Bipolar II disorder; K21.9 Gastro-esophageal reflux disease without esophagitis; E78.5 Hyperlipidemia, unspecified; Z87.891 Personal history of nicotine dependence; Z86.79 Personal history of other diseases of the circulatory system; Z90.49 Acquired absence of other specified parts of digestive tract; Z80.9 Family history of malignant neoplasm, unspecified; Z82.49 Family history of ischemic heart disease and other diseases of the circulatory system; Z82.5 Family history of asthma and other chronic lower respiratory diseases; Z83.2 Family history of diseases of the blood and blood-forming organs and certain disorders involving the immune mechanism; Z83.3 Family history of diabetes mellitus; Z83.42 Family history of familial hypercholesterolemia
CPT/HCPCS: 96361; 96374; 96375; 99285

== ENCOUNTER → 2022-11-19 14:49 | Outpatient (CLI) | payer OTHER, SELFPAY ==
[2022-11-19 15:28] LABS: Basophils # 0.2 K/mm3 (0-0.2); Basophils % 1.2 % (0.1-2.0); Eosinophils # 0.2 K/mm3 (0.0-0.4); Eosinophils % 1.2 % (0.1-12.0); Hematocrit 46.2 % (37.0-47.0); Hemoglobin 15.6 g/dL (12.2-16.2); Lymphocytes # 5.8 K/mm3 (0.7-4.5); Lymphocytes % 35.2 % (10-50); Mean Corpuscular HGB Conc 33.8 g/dL (31.8-35.4); Mean Corpuscular Hemoglobin 28.4 pg (27.0-31.2); Mean Corpuscular Volume 84.1 fl (81-99); Mean Platelet Volume 8.9 fl (7.4-10.4); Monocytes # 1.4 K/mm3 (0.1-1.0); Monocytes % 8.1 % (1.7-9.3); Neutrophils % 54.4 % (37.0-80.0); Platelet Count 376 K/mm3 (142-424); Red Cell Distribution Width 13.3 % (11.5-17.5); White Blood Count 16.6 K/mm3 (4.8-10.8)
[2022-11-19 15:33] LABS: MANUAL DIFFERENTIAL MANUAL DIFFERENTIAL (MANUAL DIFF)
[2022-11-19 16:22] LABS: Erythrocyte Sedimentation Rate 6 mm/hr (0-20)
[2022-11-19 17:10] LABS: Eosinophils % 1 % (0-3); Lymphocytes % 43 % (10-50); Monocytes % 2 % (2-9); Neutrophils % 54 % (42-76); Total Cells Counted 100
[2022-11-19 17:12] LABS: Platelet Estimate Normal; RBC Morphology Normal
[2022-11-21 14:57] LABS: Peripheral Smear Review Scanned Result
[2022-11-24 09:01] LABS: Antinuclear Antibodies, IFA Negative (.)
[2022-11-25 13:11] LABS: Viability 90%
== END ==
PROVIDERS: PCP Family Medicine; Visit Provider Internal Medicine Medical Oncology
DX: D72.829 Elevated white blood cell count, unspecified (principal)
CPT/HCPCS: 36415; 85007; 85025; 85651; 86038; 88184; 88185; 88189

== ENCOUNTER → 2023-01-08 11:14 | Outpatient (CLI) | payer OTHER, SELFPAY ==
--- NOTE | 2023-01-08 11:16 | XR_ITS ---
FINAL REPORT CLINICAL HISTORY: dyspnea COMPARISON: 10/27/2020 FINDINGS: Two views of the chest were obtained. The heart size and pulmonary vascularity are within normal limits. The mediastinum is normal. No acute pulmonary abnormality is identified. There is no pneumothorax. The bony thorax is intact. IMPRESSION: No active cardiopulmonary disease. Reviewed, Interpreted and Dictated by Roman Swain III, MD Transcribed by Kinjal Parrish Authenticated and [facility]
== END ==
PROVIDERS: PCP Nurse Practitioner Family; Visit Provider Physician Assistant
DX: R00.2 Palpitations (principal); E78.2 Mixed hyperlipidemia; I51.89 Other ill-defined heart diseases; R07.9 Chest pain, unspecified
CPT/HCPCS: 71046; 93225

== ENCOUNTER → 2023-02-04 14:07 | Outpatient (CLI) | payer OTHER, SELFPAY ==
[2023-02-04 16:11] LABS: Hemoglobin A1C 5.5 % (4.0-6.0)
== END ==
PROVIDERS: PCP Nurse Practitioner Family; Visit Provider Nurse Practitioner Family
DX: E11.9 Type 2 diabetes mellitus without complications (principal); Z79.84 Long term (current) use of oral hypoglycemic drugs
CPT/HCPCS: 83036

== ENCOUNTER → 2023-04-06 16:38 | Outpatient (CLI) | payer OTHER, SELFPAY ==
[2023-04-06 17:17] LABS: Alanine Aminotransferase 33 U/L (12-78); Albumin Level 4.6 g/dl (3.5-5.0); Albumin/Globulin Ratio 1.6 (1.1-1.8); Alkaline Phosphatase 193 U/L (38-126); Anion Gap 16.4 mEq/L (5-15); Aspartate Amino Transferase 26 U/L (14-36); Bilirubin,Total 0.3 mg/dl (0.2-1.3); Blood Urea Nitrogen 22 mg/dl (7-17); Carbon Dioxide 27 mmol/L (22.0-30.0); Chloride 102 mmol/L (98-107); Estimated Glomerular Filt Rate 78 ml/min (>60); GFR (African American) 95 ML/MIN (>60); Globulin 2.9 g/dL (1.3-3.2); Glucose 152 mg/dl (74-100); Potassium 4.4 mmoL/L (3.5-5.1); Sodium 141 mmol/L (136-145); Total Protein,Serum 7.5 g/dl (6.3-8.2)
== END ==
PROVIDERS: PCP Nurse Practitioner Family; Visit Provider Nurse Practitioner Family
DX: R42 Dizziness and giddiness (principal); I51.89 Other ill-defined heart diseases; R60.9 Edema, unspecified
CPT/HCPCS: 80053

== ENCOUNTER → 2023-05-11 15:35 | Outpatient (CLI) | payer OTHER, SELFPAY ==
[2023-05-11 12:51] LABS: Microscopic, Urine URINE MICROSCOPIC (MICROSCOPIC)
[2023-05-11 13:19] LABS: Appearance,Urine CLOUDY (Clear); Bilirubin,Urine Negative (Negative); Blood, Urine Negative (Negative); Color,Urine YELLOW (Yellow); Glucose,Urine (UA) Negative (Negative); Ketones,Urine Negative (Negative); Leukocyte Esterase,Urine Negative (Negative); Nitrate,Urine Negative (Negative); Protein,Urine Negative (Negative); Specific Gravity, Urine >= 1.030 (1.005-1.030)
[2023-05-11 13:33] LABS: Squamous Epithelial Cell,Urine Occasional #/hpf (0-5)
[2023-05-11 13:34] LABS: Amorphous Sediment,Urine 3+ /lpf; Bacteria,Urine 3+ /lpf
== END ==
PROVIDERS: PCP Nurse Practitioner Family; Visit Provider Nurse Practitioner Family
DX: R30.0 Dysuria (principal); R30.9 Painful micturition, unspecified
CPT/HCPCS: 81001; 87086

== ENCOUNTER → 2023-06-04 13:03 | Outpatient (CLI) | payer OTHER, SELFPAY ==
--- NOTE | 2023-06-04 13:06 | MR_ITS ---
FINAL REPORT CLINICAL HISTORY: Worsening headaches 2-3 times a week for many years prior to new medication FINDINGS: Multiplanar MR imaging of the brain was performed without contrast. There is no evidence of intracranial hemorrhage or mass. The ventricular size is normal. There is no evidence of shift of the midline structures. No abnormal extra-axial fluid collection is identified. The posterior fossa and brainstem have an unremarkable appearance. No area of abnormal restricted diffusion is identified. Normal major vessel vascular flow voids are seen. IMPRESSION: Unremarkable brain with no acute intracranial abnormality. Reviewed, Interpreted and Dictated by Roman Swain III, MD Transcribed by Thu Maxwell Authenticated and [facility]
== END ==
PROVIDERS: PCP Nurse Practitioner Family; Visit Provider Nurse Practitioner Family
DX: G43.709 Chronic migraine without aura, not intractable, without status migrainosus (principal); G44.86 Cervicogenic headache; G89.29 Other chronic pain; M54.2 Cervicalgia; Z87.898 Personal history of other specified conditions
CPT/HCPCS: 70551

== ENCOUNTER → 2023-06-18 08:25 | Outpatient (CLI) | payer OTHER, SELFPAY ==
[2023-06-18 08:50] LABS: Basophils # 0.1 K/mm3 (0-0.2); Basophils % 0.6 % (0.1-2.0); Eosinophils # 0.1 K/mm3 (0.0-0.4); Eosinophils % 0.9 % (0.1-12.0); Hematocrit 44.5 % (37.0-47.0); Hemoglobin 14.9 g/dL (12.2-16.2); Lymphocytes # 4.9 K/mm3 (0.7-4.5); Lymphocytes % 34.9 % (10-50); Mean Corpuscular HGB Conc 33.4 g/dL (31.8-35.4); Mean Corpuscular Hemoglobin 28.4 pg (27.0-31.2); Mean Platelet Volume 9.1 fl (7.4-10.4); Monocytes # 1.1 K/mm3 (0.1-1.0); Monocytes % 8.1 % (1.7-9.3); Neutrophils # 7.8 K/mm3 (1.8-7.8); Neutrophils % 55.6 % (37.0-80.0); Platelet Count 321 K/mm3 (142-424); Red Blood Count 5.24 M/mm3 (4.20-5.40); Red Cell Distribution Width 13.4 % (11.5-17.5); White Blood Count 14.1 K/mm3 (4.8-10.8)
[2023-06-18 09:27] LABS: Hemoglobin A1C 5.7 % (4.0-6.0)
[2023-06-18 10:04] LABS: Alanine Aminotransferase 27 U/L (12-78); Albumin Level 4.4 g/dl (3.5-5.0); Albumin/Globulin Ratio 1.7 (1.1-1.8); Alkaline Phosphatase 161 U/L (38-126); Anion Gap 16.2 mEq/L (5-15); Aspartate Amino Transferase 20 U/L (14-36); Bilirubin,Total 0.3 mg/dl (0.2-1.3); Blood Urea Nitrogen 15 mg/dl (7-17); Calcium 9.4 mg/dl (8.4-10.2); Carbon Dioxide 21 mmol/L (22.0-30.0); Chloride 109 mmol/L (98-107); Chol/HDL Ratio 4.3 (1-3.5); Cholesterol 137 mg/dl (140-200); Estimated Glomerular Filt Rate 78 ml/min (>60); GFR (African American) 95 ML/MIN (>60); Globulin 2.6 g/dL (1.3-3.2); Glucose 100 mg/dl (74-100); HDL Cholesterol 32 mg/dl (40-60); Potassium 4.2 mmoL/L (3.5-5.1); Sodium 142 mmol/L (136-145); Triglycerides 165 mg/dl (30-150); VLDL Cholesterol 33 mg/dL (0-40)
[2023-06-18 10:14] LABS: Direct LDL Cholesterol 74.26 mg/dL (100-129)
[2023-06-18 10:20] LABS: Free T4 (Free Thyroxine) 0.87 ng/dl (0.78-2.19)
[2023-06-18 10:34] LABS: Thyroid Stimulating Hormone 1.77 uIU/mL (0.465-4.68)
[2023-06-18 10:48] LABS: Ferritin 160 ng/ml (6.24-137)
[2023-06-18 11:10] LABS: Folate 9.33 ng/mL; Vitamin B12 757 pg/mL (239-931)
== END ==
PROVIDERS: Nurse Practitioner Family; PCP Nurse Practitioner Family; Visit Provider Nurse Practitioner Family
DX: G43.709 Chronic migraine without aura, not intractable, without status migrainosus (principal); G44.86 Cervicogenic headache; G89.29 Other chronic pain; H05.20 Unspecified exophthalmos; R00.2 Palpitations; R73.03 Prediabetes; D72.829 Elevated white blood cell count, unspecified; E78.5 Hyperlipidemia, unspecified; E66.01 Morbid (severe) obesity due to excess calories; Z68.41 Body mass index [BMI] 40.0-44.9, adult
CPT/HCPCS: 36415; 80053; 80061; 82607; 82728; 82746; 83036; 84439; 84443; 85025

== ENCOUNTER → 2023-06-29 07:04 | Outpatient (CLI) | payer OTHER, SELFPAY ==
--- NOTE | 2023-06-29 07:04 | CT_ITS ---
FINAL REPORT TECHNIQUE: Axial CT images were performed from the lung apices through the upper abdomen. Coronal reformats were submitted. This study was performed with techniques to keep radiation doses as low as reasonably achievable (ALARA). Individualized dose reduction techniques using automated exposure control or adjustment of mA and/or kV according to the patient's size were employed. CLINICAL HISTORY: Nodule and AdenopathyF/U COMPARISON: 09/08/2019 FINDINGS: There is no axillary adenopathy. There are several calcified mediastinal and left hilar nodes. There is a right breast nodule which measures 21 mm and previously measured 15 mm. This is nonspecific. Heart size is normal. There is no pericardial or pleural effusion. There are several calcified granulomas in the left lung. A 7 mm nodule in the left lung base is stable compared to the prior exam. Limited images of the upper abdomen demonstrate postoperative changes from cholecystectomy. IMPRESSION: Right breast nodule. Correlation with mammogram and possibly ultrasound is recommended. Stable left lung base nodule. Reviewed, Interpreted and Dictated by Roman Swain III, MD Transcribed by Mariposa Byrnes Authenticated and [facility]
== END ==
PROVIDERS: PCP Nurse Practitioner Family; Visit Provider Internal Medicine Pulmonary Disease
DX: R59.0 Localized enlarged lymph nodes (principal); R91.8 Other nonspecific abnormal finding of lung field
CPT/HCPCS: 71250

== ENCOUNTER → 2023-07-01 13:47 | Outpatient (CLI) | payer OTHER, SELFPAY ==
--- NOTE | 2023-07-01 13:48 | MM_ITS ---
PROCEDURE INFORMATION: Exam: US Right Breast, Complete MG Bilateral Diagnostic Breast Tomosynthesis Exam date and time: 07/01/2023 2:06 PM Age: 42 years old Clinical indication: Nodule found on CT scan TECHNIQUE: Imaging protocol: Complete ultrasound of all four quadrants of the right breast and the retroareolar regions, including ultrasound of the axilla when performed. Bilateral Diagnostic tomosynthesis and 2D mammography including computer-aided detection (CAD) when performed. Unilateral or bilateral exam. COMPARISON: No relevant prior studies available. FINDINGS: MAMMOGRAPHY: The breast tissue is composed of scattered areas of fibroglandular density. There is no stellate mass, architectural distortion or suspicious microcalcifications in either breast to suggest malignancy. No skin thickening or axillary adenopathy. Partially circumscribed ovoid 2.1 cm mass in the middle third of the right upper outer quadrant ULTRASOUND: Sonographic images of the right breast including the retroareolar region, all 4 quadrants and the axilla do not demonstrate a partially circumscribed heterogeneous hypoechoic ovoid solid mass in the 11 o'clock axis 9 cm from the nipple. This appears to most closely correspond to the mass on mammography as well as the nodule reported on CT scan. It measures 2.0 x 2.1 x 0.9 cm in dimension. No architectural distortion or acoustical shadowing. No skin thickening or axillary adenopathy. IMPRESSION: Indeterminate solid mass in the right upper outer quadrant. Ultrasound-guided core biopsy is recommended for further evaluation. ASSESSMENT: BI-RADS Category 4: Suspicious
== END ==
PROVIDERS: PCP Nurse Practitioner Family; Visit Provider Internal Medicine Pulmonary Disease
DX: N63.11 Unspecified lump in the right breast, upper outer quadrant (principal)
CPT/HCPCS: 76641; 77062; 77066; G0279

== ENCOUNTER → 2023-07-09 14:50 | Outpatient (CLI) | payer OTHER, SELFPAY ==
[2023-07-09 15:10] VITALS: PULSE 60; PULSE 61
== END ==
PROVIDERS: PCP Nurse Practitioner Family; Visit Provider Internal Medicine Pulmonary Disease
DX: R06.09 Other forms of dyspnea (principal)
CPT/HCPCS: 94060; 94640

== ENCOUNTER → 2023-07-12 14:31 | Outpatient (CLI) | payer OTHER, SELFPAY ==
[2023-07-12 13:03] LABS: Influenza A, PCR Not Detected (NotDetected); Influenza B, PCR Not Detected (NotDetected)
[2023-07-12 13:38] LABS: Coronavirus 19, PCR Detected (NotDetected)
== END ==
PROVIDERS: PCP Nurse Practitioner Family; Visit Provider Nurse Practitioner Family
DX: U07.1 COVID-19
CPT/HCPCS: 87636

== ENCOUNTER → 2023-07-26 07:24 | Outpatient (CLI) | payer OTHER, SELFPAY ==
--- NOTE | 2023-07-26 07:28 | US_ITS ---
FINAL REPORT CLINICAL HISTORY: rt breast nod 1100 -- DR. ROSALIE MAX -- RT BREAST-- , right breast mass and biopsy FINDINGS: ULTRASOUND-GUIDED RIGHT BREAST CORE BIOPSY TECHNIQUE: Limited images were obtained to localize region of interest. The right breast was prepped in a routine sterile fashion and locally anesthetized with 1% lidocaine. Standard written informed consent was obtained. The biopsy needle was positioned within the outer periphery of the lesion. A total of 4 passes were made with a 16 gauge core biopsy needle. A biopsy marker clip was deployed in satisfactory position. Postbiopsy mammogram showed postbiopsy changes with clip in satisfactory position. Procedure was well tolerated . CONCLUSION: 1. Technically successful ultrasound guided core biopsy of right breast lesion as above. 2. Biopsy marker clip deployed Histopathology results reveal stromal fibrosis.. Pathology is concordant with mammographic findings. Recommend 6 month mammographic and sonographic follow-up as routine benign postbiopsy surveillance. Authenticated and [facility]
--- NOTE | 2023-07-26 08:45 | MM_ITS ---
FINAL REPORT CLINICAL HISTORY: . clip placement, right breast biopsy FINDINGS: MAMMOGRAM RIGHT TECHNIQUE: Standard digital 2-D views COMPARISON: None DENSITY: There are scattered areas of fibroglandular density FINDINGS: Post biopsy marker clip is noted to be in satisfactory position. Biopsy marker clip is associated with a focal asymmetry seen in the right upper inner quadrant. Postbiopsy changes are noted. IMPRESSION: Biopsy marker clip in good position RECOMMENDATION: Given concordant findings on histopathology, six-month mammographic and sonographic follow-up recommended Authenticated and [facility]
== END ==
PROVIDERS: PCP Nurse Practitioner Family; Visit Provider Surgery
DX: N63.12 Unspecified lump in the right breast, upper inner quadrant (principal)
CPT/HCPCS: 19083; 77065

== ENCOUNTER 2023-10-05 09:35 | Outpatient (CLI) | payer OTHER, SELFPAY ==
--- NOTE | 2023-10-05 09:49 | XR_ITS ---
FINAL REPORT CLINICAL HISTORY: right wrist pain FINDINGS: 3 views of the right wrist were obtained. There is no acute fracture or dislocation. The joint spaces are intact. There is no soft tissue abnormality. IMPRESSION: No acute abnormality. Reviewed, Interpreted and Dictated by Roman Swain III, MD Transcribed by Pop Gallardo Authenticated and [facility]
--- NOTE | 2023-10-05 09:49 | XR_ITS ---
FINAL REPORT CLINICAL HISTORY: Left wrist pain FINDINGS: Left wrist Three views were obtained. There is no acute fracture or dislocation. Mild degenerative changes. No soft tissue abnormality is identified. IMPRESSION: Mild degenerative changes. Reviewed, Interpreted and Dictated by Roman Swain III, MD Transcribed by Thu Maxwell Authenticated and [facility]
== END 2023-10-05 23:59 ==
LOC: RAD 09:36
PROVIDERS: PCP Nurse Practitioner Family; Visit Provider Orthopaedic Surgery
DX: M25.531 Pain in right wrist (principal); M25.532 Pain in left wrist
CPT/HCPCS: 73110

== ENCOUNTER 2023-10-29 10:55 | Outpatient (CLI) | payer OTHER, SELFPAY ==
--- NOTE | 2023-10-29 10:56 | CT_ITS ---
FINAL REPORT TECHNIQUE: Thin section axial CT images were obtained through the neck after intravenous contrast administration. Coronal and sagittal reformats were also obtained. This study was performed with techniques to keep radiation doses as low as reasonably achievable (ALARA). Individualized dose reduction techniques using automated exposure control or adjustment of mA and/or kV according to the patient''s size were employed. CLINICAL HISTORY: right sided lympadenopathy FINDINGS: The nasopharynx, oropharynx, hypopharynx and larynx are unremarkable. There are multiple borderline sized bilateral neck nodes without evidence of adenopathy. The thyroid gland is unremarkable. The visualized sinuses are clear. There is no acute osseous abnormality. IMPRESSION: Borderline sized bilateral neck nodes without evidence of adenopathy. Reviewed, Interpreted and Dictated by Roman Swain III, MD Transcribed by Thu Maxwell Authenticated and . [facility]
[2023-10-29] MEDS: IOPAMIDOL-370 (76%);100ML BOTTLE 75 ML IV (11:18)
[2023-10-29] MEDS: SODIUM CHLORIDE 0.9% 10ML SYR (RAD ONLY) 10 ML IV (11:18)
== END 2023-10-29 23:59 ==
LOC: RAD 10:55
PROVIDERS: PCP Nurse Practitioner Family; Visit Provider Nurse Practitioner
DX: R59.1 Generalized enlarged lymph nodes (principal)
CPT/HCPCS: 70491; Q9967

== ENCOUNTER 2023-12-28 11:44 | Outpatient (POV) | payer OTHER, SELFPAY | END 2023-12-28 23:59 | disposition home or self-care (01) | LOC: SC 11:44 | PROVIDERS: Visit Provider Specialist/Technologist | DX: Z00.00 Encounter for general adult medical examination without abnormal findings (principal) ==

== ENCOUNTER 2023-12-29 07:18 | Day surgery (SDC) | payer OTHER, SELFPAY ==
[2023-12-24 16:18] VITALS: BMI 40.4
[2023-12-29] VITALS (10 sets, daily range): BP systolic 111–150; BP diastolic 67–92; PULSE 77–102; RESP 12–19; TEMP 36.1–43; O2SAT 91–96
[2023-12-29] MEDS: LACTATED RINGERS 1000ML 1,000 ML 100 ML IV (07:45)
--- NOTE | 2023-12-29 07:51 | P.PNANES_ITS ---
[facility] Disclaimer: The information contained in this section may have been updated after the patient was seen, as this information can be updated by other users. Medical History History of neck swelling Lymphadenopathy Insomnia Smoking greater than 20 pack years Smoking greater than 30 pack years Multiple lung nodules on CT Dyspnea on exertion Mediastinal lymphadenopathy Hilar lymphadenopathy Burning with urination Painful micturition History of chest pain Dizziness Swelling of right ear Right ear pain BMI 45.0-49.9, adult Diastolic dysfunction Established with [facility] cardiology Bronchitis Sinusitis Restless leg syndrome Significant symptomatic improvement with CPAP usage Difficulty with CPAP use Right ankle pain Elevated alkaline phosphatase level History of left heart catheterization Migraine Bipolar II disorder BMI 40.0-44.9, adult Maxillary sinusitis, acute Exposure to COVID-19 virus Abdominal pain Family history of heart disease Atypical angina Abnormal cardiovascular stress test Ex-smoker HLD (hyperlipidemia) Obesity Right wrist tendonitis Right leg pain Right leg swelling Dyspnea Depression Established with Romelia Rajput APRN Chest pain Surgical History History of appendectomy History of cholecystectomy History of tonsillectomy H/O: section History of total hysterectomy total due to benign reason Family History Other Anemia Asthma Cancer Diabetes Family history of heart disease Heart attack Hyperlipidemia Hypertension Thyroid disorder Tuberculosis Social History Smoking Status: Never smoker alcohol intake: never substance use type: denies use current occupational status: employed Travel in the last 8 weeks: None household members: family housing: house marital status: number of children: 1 caffeine: Yes [facility] Anesthesia Checklist Patient Identification Patient Identification: Arm Band, Family and Verbal (Name & ) Structural Data Admitted From: Home Planned Operative Procedure/s: RT. Endoscopic CT Release Consent for Planned Operative Procedure(s) Verified: Yes Verified Documents: Surgical Consent and History and Physical NPO Status Verified Time NPO: 20:30 Chart Verification Results Verified: CBC, BMP, ECG and Chest Xray Additional verifications Patient : No Anesthesia Reactions: No Hx Blood Transfusions: No Blood Transfusion Reaction: No Cardiovascular Assessment Heart Sounds: S1 & S2 Pulse Rhythm: Irregular Peripheral Edema: No Airway Assessment Mallampati Score:: Class II C-Spine Mobility Assessed: Yes (FROM) TMJ Mobility Assessed: Yes Dentition: Good Dentition (Nothing loose per pt.) Neurological Assessment Level of Consciousness: Awake, Appropriate and Follows Commands Hx Seizures: No Numbness or tingling in extremities: No Anesthesia Plan Anesthesia Risk discussed: Yes Anesthesia Plan: Verified ASA Class: III Anesthesia Type: General
[2023-12-29] MEDS: LIDOCAINE 1% W/EPI 1:100,000 20ML VIAL 20 ML (09:24)
[2023-12-29] MEDS: CEFAZOLIN SODIUM 2 GM in 0.9 % SODIUM CHLORIDE 100 ML IV (09:24)
--- NOTE | 2023-12-29 09:39 | EXP.OP.NOTE ---
Date of procedure: 12/29/23 Pre-op Diagnosis:: Right carpal tunnel syndrome Post-op Diagnosis:: Same Procedure performed:: Right endoscopic carpal tunnel release Surgeon:: Abraham Donohue DO JAVA SOFTWARE ENGINEER:: Elliot Gonzalez Anesthesia: LMA Estimated blood loss (mL): 0 Operative findings:: See dictation Operative note:: Patient was identified preoperatively. Right wrist marked with a yes and my initials. Transferred operative suite. Placed upon the operating bed. General anesthesia ministered airway secured. Right upper extremity was then prepped and draped in normal sterile fashion. Once prepped and draped final operative timeout performed to identify proper patient procedure and extremity. Everyone involved the case agreed. There is no counter indications to beginning. Did receive preoperative antibiotics. Marking pen was used to román plan incision over the volar wrist. Esmarch was used to exsanguinate the extremity and pneumatic tourniquet was inflated to 250 mmHg. Skin knife was used incise the skin careful dissection was taken down with retractors placed to identify the most proximal aspect of the transverse carpal ligament. The dilators for the 4.0 mm sled were utilized placed in the carpal tunnel exchange then with the 4.0 mm sled. The camera was then placed and transverse carpal ligament was clearly seen superiorly within the camera. The probe was used to identify the distal aspect of the transverse carpal ligament. Rasp was used to remove soft tissue from the transverse carpal ligament and then the hook knife was utilized to open the carpal tunnel and incise the transverse carpal ligament completely. This was visualized directly with the camera. Sled was then removed irrigation of wound performed local anesthesia infiltrated 1% lidocaine with epinephrine and skin was closed with nylon stitch sterile hand dressing placed. Patient waken anesthesia taken recovery stable condition. Condition: stable Disposition: PACU Complications:: None apparent
--- NOTE | 2023-12-29 09:54 | EXP.ANES.I ---
[facility] Anesthesia Record Part I Anesthesia Record I Intake, IV Amount: 500 Hydration: Adequate Estimated blood loss (mL): 5 Urine output (mL): 0 Blood Pressure: 128/92 SaO2: 92 Pulse Rate: 100 Airway Patency: Patent Respiratory Rate: 12 Temperature: 97.7 F Patient is:: Awake Stable to PACU at:: 09:50
--- NOTE | 2023-12-30 11:19 | P.PNANES_ITS ---
[facility] Anesthesia Record Part II Anesthesia Record Part II Discharge Time: 10:20 Destination: Surgical Day Care (OP Surgery) PACU nurse assessment reviewed?: Yes Patient Condition:: Good Anesthesia Complications:: None Swallowing reflex intact?: Yes Airway Patency: Patent Cyanosis?: No Blood Pressure: 150/82 SaO2: 94 Respiratory Rate: 19 Pulse Rate: 97 Temperature: 97 F Mental Status: Alert & Oriented Pain level:: 0 Nausea and/or vomitting:: None Intake, IV Amount: 0 Hydration: Adequate
[2023-12-30 11:20] VITALS: BP 150/82; PULSE 97; RESP 19; TEMP 36.1; O2SAT 94
== END 2023-12-29 11:00 | disposition home or self-care (01) ==
PROVIDERS: PCP Nurse Practitioner Family; Visit Provider Orthopaedic Surgery
PROC: (CPT 64721; principal; 2023-12-29 09:00)
DX: G56.01 Carpal tunnel syndrome, right upper limb (principal)
CPT/HCPCS: 29848; J2405

== ENCOUNTER 2024-03-02 15:23 | Outpatient (CLI) | payer OTHER, SELFPAY ==
[2024-03-02 16:10] LABS: Hemoglobin A1C 5.1 % (4.0-6.0)
== END 2024-03-02 23:59 | disposition home or self-care (01) ==
LOC: LAB 15:24
PROVIDERS: PCP Nurse Practitioner Family; Visit Provider Internal Medicine
DX: E78.2 Mixed hyperlipidemia (principal); Z79.899 Other long term (current) drug therapy
CPT/HCPCS: 36415; 83036

== ENCOUNTER 2024-03-27 10:26 | Outpatient (CLI) | payer OTHER, SELFPAY ==
[2024-03-27 18:28] LABS: Basophils # 0.1 K/mm3 (0-0.2); Basophils % 0.8 % (0.1-2.0); Eosinophils # 0.1 K/mm3 (0.0-0.4); Eosinophils % 1.1 % (0.1-12.0); Hematocrit 42.7 % (37.0-47.0); Lymphocytes # 4.1 K/mm3 (0.7-4.5); Lymphocytes % 36.3 % (10-50); Mean Corpuscular HGB Conc 32.8 g/dL (31.8-35.4); Mean Corpuscular Hemoglobin 29.7 pg (27.0-31.2); Mean Corpuscular Volume 90.3 fl (81-99); Mean Platelet Volume 10.5 fl (7.4-10.4); Monocytes # 1.2 K/mm3 (0.1-1.0); Monocytes % 10.2 % (1.7-9.3); Neutrophils # 5.8 K/mm3 (1.8-7.8); Neutrophils % 51.6 % (37.0-80.0); Platelet Count 272 K/mm3 (142-424); Red Blood Count 4.73 M/mm3 (4.20-5.40); Red Cell Distribution Width 14.3 % (11.5-17.5); White Blood Count 11.3 K/mm3 (4.8-10.8)
[2024-03-27 19:36] LABS: Alanine Aminotransferase 27 U/L (12-78); Albumin Level 4.1 g/dl (3.5-5.0); Albumin/Globulin Ratio 1.5 (1.1-1.8); Alkaline Phosphatase 113 U/L (38-126); Anion Gap 12.4 mEq/L (5-15); Aspartate Amino Transferase 24 U/L (14-36); Bilirubin,Total 0.5 mg/dl (0.2-1.3); Blood Urea Nitrogen 18 mg/dl (7-17); Calcium 9.4 mg/dl (8.4-10.2); Carbon Dioxide 26 mmol/L (22.0-30.0); Chloride 109 mmol/L (98-107); Chol/HDL Ratio 5.4 (1-3.5); Cholesterol 255 mg/dl (140-200); Estimated Glomerular Filt Rate 54 ml/min (>60); GFR (African American) 65 ML/MIN (>60); Globulin 2.7 g/dL (1.3-3.2); Glucose 96 mg/dl (74-100); HDL Cholesterol 47 mg/dl (40-60); Potassium 4.4 mmoL/L (3.5-5.1); Sodium 143 mmol/L (136-145); Total Protein,Serum 6.8 g/dl (6.3-8.2); Triglycerides 160 mg/dl (30-150); VLDL Cholesterol 32 mg/dL (0-40)
[2024-03-27 19:43] LABS: Free T4 (Free Thyroxine) 1.14 ng/dl (0.78-2.19)
[2024-03-27 19:44] LABS: 25-OH Vitamin D, Total 33.6 ng/mL (30-100)
[2024-03-27 19:53] LABS: Direct LDL Cholesterol 169.14 mg/dL (100-129)
[2024-03-27 20:20] LABS: Thyroid Stimulating Hormone 1.56 uIU/mL (0.465-4.68)
[2024-03-27 20:57] LABS: Vitamin B12 554 pg/mL (239-931)
[2024-03-27 20:58] LABS: Folate 6.55 ng/mL
== END 2024-03-27 23:59 | disposition home or self-care (01) ==
LOC: LAB.DROPOF 03-28 10:27
PROVIDERS: PCP Nurse Practitioner Acute Care; Visit Provider Nurse Practitioner Acute Care
DX: Z00.00 Encounter for general adult medical examination without abnormal findings (principal); R53.83 Other fatigue; F41.9 Anxiety disorder, unspecified; E53.8 Deficiency of other specified B group vitamins; F32.A Depression, unspecified; F32.9 Major depressive disorder, single episode, unspecified
CPT/HCPCS: 80050; 80053; 80061; 82306; 82607; 82746; 84439; 84443; 85025

== ENCOUNTER 2024-03-29 15:30 | Outpatient (CLI) | payer OTHER, SELFPAY | END 2024-03-29 23:59 | disposition home or self-care (01) | LOC: RT 15:31 | PROVIDERS: PCP Nurse Practitioner Family; Visit Provider Nurse Practitioner | DX: R00.2 Palpitations (principal); R94.31 Abnormal electrocardiogram [ECG] [EKG]; R06.02 Shortness of breath; R07.9 Chest pain, unspecified | CPT/HCPCS: 93270 ==

== ENCOUNTER 2024-03-31 08:40 | Outpatient (CLI) | payer OTHER, SELFPAY ==
--- NOTE | 2024-03-31 08:41 | CA_ITS ---
APPROVED REPORT EXAM: Comprehensive 2D, Doppler, and color-flow Echocardiogram Technical Specialist Cytology: Apple Matson RT(R) Ht: 5 ft 5 in Wt: 250lbs BSA: 2.17 BP: 123/68 mmHg Indications: CP, ABN EKG, ex smoker, palpitations, PAULA, hyperlipidemia, family history of HLD. 2D Dimensions LA Volume 37.10 mL LA Volume Index 17.02 mL/m2 (M/F) 16-34 EF AP4 54.80 % GL Strain -16.9 % M-Mode Dimensions RVDd 2.97 cm (0.9-2.6) LA Diam 4.48 cm (1.9-4.0) LVDd 4.90 cm (3.5-5.7) LVDs 3.49 cm (3.5-5.7) IVSd 0.84 cm (0.6-1.1) PWd 0.84 cm (0.6-1.1) EF (Teich) 55.20% FS 28.80% EDV (Teich) 112.80 mL ESV (Teich) 50.50 mL LV Diastology E Decel Time 183 (160-240 msec) E/A Ratio 1.4 Mitral Valve MV E Max Ryan. 101.0 (40-130 cm/s) MV A Velocity 71.0 (40-130 cm/s) E/A Ratio 1.42 MV PHT 54.0 ms Left Ventricle The left ventricle is normal size. The left ventricular systolic function is normal. The left ventricular ejection fraction is within the normal range. There is normal left ventricular wall thickness. There is normal LV segmental wall motion. The left ventricular diastolic function is normal. LVEF is 55%. Right Ventricle The right ventricle is normal size. The right ventricular systolic function is normal. Atria The left atrium size is normal. The right atrium size is normal. There is no Doppler evidence of interatrial shunt. Aortic Valve The aortic valve opens well. There is no aortic valvular stenosis. Trace aortic regurgitation. Mitral Valve The mitral valve is normal in structure. No evidence of mitral valve stenosis. Mild mitral regurgitation. Tricuspid Valve The tricuspid valve leaflets are thin and pliable. Mild tricuspid regurgitation. RVSP is normal. Pulmonic Valve The pulmonary valve is normal in structure. Trace pulmonic regurgitation. Great Vessels The aortic root is normal in size. The ascending aorta is not well-visualized. IVC is normal in size and collapses >50% with inspiration. Pericardium There is no pericardial effusion. Other Information Study Quality: Fair Conclusion Normal biventricular systolic function. Mild MR, mild TR. Electronically signed by : Nury Adkins MD 04/01/2024 23:36:22
== END 2024-03-31 23:59 | disposition home or self-care (01) ==
LOC: RT 08:41
PROVIDERS: PCP Nurse Practitioner Family; Visit Provider Nurse Practitioner
DX: R07.9 Chest pain, unspecified (principal); R94.31 Abnormal electrocardiogram [ECG] [EKG]; R06.02 Shortness of breath
CPT/HCPCS: 93306

== ENCOUNTER 2024-04-04 06:53 | Outpatient (CLI) | payer OTHER, SELFPAY ==
--- NOTE | 2024-04-04 | CA_ITS ---
APPROVED REPORT Exam: Pharmacologic Technologist: Lulú June, Ht: 5 ft 5 in Wt: 250 lbs BSA: 2.17 m2 HR: 60 bpm BP: 121/69 mmHg Rhythm: NSR Medical History Medications: Vitamin D3,,,,, Zetia,,,,, TopIRAMATE,,,,, Albuterol,,,,, Prozac,,,,, TriLEPTAL,,,,, SpirOnolactone,,,,, PEPcid,,,,, TorSEMIDE,,,,, Zofran,,,,, UBrelvy,,,,, Verapamil ER,,,,, Stress Test Details Test: LEXISCAN Reason for pharmacologic stress test: physical limitation. HR Resting HR: 59 bpm Max Heart Rate (APMHR): 176 bpm Max HR Achieved: 100 bpm Target HR (85% APMHR): 150 bpm % of APMHR: 57 Recovery HR: 77 bpm BP Resting BP: 121.0/69.0 mmHg Max BP: 129.0/70.0 mmHg Recovery BP: 120.0/73.0 mmHg ECG Resting ECG: Sinus bradycardia Stress ECG: No significant ST changes Arrhythmia: None Clinical Exercise duration: 04:01 min Highest Stage Achieved: Stress ECG Conclusion Symptoms: Dyspnea, chest tightness Arrhythmias/Ectopy: None ST-T Changes: None Conclusion: EKG unremarkable due to Lexiscan infusion. Myoview images reported separately. Test Summary REST . . . . . . . Resting REST 04:45 . . 59 . 121/ 69 . . Stage 1 . . . . . . . Myoview Injected Stage 1 01:00 . . 98 . . . . Stage 2 01:00 . . 85 . 120/ 72 . . Stage 3 01:00 . . 81 . 129/ 70 . . Stage 4 01:00 . . 75 . 126/ 71 . . Stage 4 01:01 . . 75 . 126/ 71 . Stop exercise at 04:01 RECOVERY 01:00 . . 74 . 120/ 74 . . RECOVERY 02:00 . . 71 . 120/ 73 . . RECOVERY 02:05 . . 71 . 120/ 73 . . Electronically signed by : Nury Adkins MD 04/05/2024 03:29:18
--- NOTE | 2024-04-04 06:55 | NM_ITS ---
APPROVED REPORT Exam: Nuclear Stress Test Indication: Chest pain, SOB, Palpitations, Fatigue, High cholesterol, Family history Patient Location: Outpatient Stress Tech: Lulú Galdamez [place] Tech:Caity Block, ARRT, RT (R)(N) Ht: 5 ft 5 in Wt: 250 lbs Bra Size: 42DD HR: 59 bpm BP: 121/69 mmHg BSA: 2.17 m2 Rhythm: NSR TID: 1.27 BMI: 41.5 History: Chest pain, SOB, Palpitations, Fatigue, High cholesterol, Family history Procedure: Patient received 0.4 mg of intravenous Lexiscan, resting heart rate 59 bpm, resting blood pressure 121/69 mmHg, with Lexiscan maximum heart rate achieved was 100 bpm which is % of the maximum predicted heart rate and blood pressure was 129/70 mmHg. With Lexiscan, patient denied any complaint of chest pain. Cardiac Stress and Resting SPECT Images: Cardiac Stress and Resting SPECT images were obtained using technetium 99m Myoview 31.3 mCi stress and 10.55 mCi at rest. Technically difficult study due to significant soft tissue overlap with the cardiac borders. This may affect the diagnostic interpretation of the study findings. Resting and stress imaging in supine positions demonstrate medium sized, moderate, fixed perfusion defect in the anterior and inferior LV dawkins. These are no longer visualized with prone stress imaging. Findings are suggestive of soft tissue and diaphragmatic attenuation. There is also increase in transient ischemic dilatation ratio (TID 1.27), suggestive of possible multivessel disease or balanced ischemia. Gated imaging demonstrates normal global and regional LV systolic function. LVEF is calculated at 54%. Conclusion: Diaphragmatic insufficient attenuation is present. Increase in transient ischemic dilatation ratio (TID 1.27), suggestive of possible multivessel disease or balanced ischemia. Gated imaging demonstrates normal global and regional LV systolic function. LVEF is calculated at 54%. In the setting of technically difficult study, young age, and normal LVEF, further evaluation for the TID is recommended noninvasively with coronary CTA (CCTA) prior to proceeding with invasive coronary angiography to rule out multivessel disease. Electronically signed by : Nury Adkins MD 04/05/2024 03:33:37
[2024-04-04] MEDS: REGADENOSON 0.4MG/5ML SYRINGE 0.4 MG IV (08:37)
[2024-04-04] MEDS: SODIUM CHLORIDE 0.9% 10ML SYR (RAD ONLY) 10 ML IV ×2 (08:37)
[2024-04-04] MEDS: ISOTOPE MYOVIEW (PER STUDY) 1 DOSE IV (08:37)
== END 2024-04-04 23:59 | disposition home or self-care (01) ==
LOC: RAD 06:53
PROVIDERS: PCP Nurse Practitioner Family; Visit Provider Nurse Practitioner
DX: R07.9 Chest pain, unspecified (principal); R94.31 Abnormal electrocardiogram [ECG] [EKG]; R06.02 Shortness of breath; I51.89 Other ill-defined heart diseases
CPT/HCPCS: 78452; 93017; 93018; A9502; J2785

== ENCOUNTER 2024-04-07 11:59 | Outpatient (CLI) | payer OTHER, SELFPAY ==
[2024-04-07] VITALS (7 sets, daily range): BP systolic 101–142; BP diastolic 59–87; PULSE 59–74; RESP 18; TEMP 37.1; O2SAT 96–98; BMI 41.5
[2024-04-07] MEDS: NITROGLYCERIN 0.4MG SL TABLET 0.8 MG SL (13:08)
[2024-04-07] MEDS: METOPROLOL TARTRATE 5MG/5ML VIAL *IVABRADINE+METOPROLOL REGIMINE 5 MG IV (13:12)
[2024-04-07] MEDS: SODIUM CHLORIDE 0.9% 10ML SYR (RAD ONLY) 10 ML IV (13:26)
[2024-04-07] MEDS: IOPAMIDOL-370 (76%);100ML BOTTLE 85 ML IV (13:26)
[2024-04-07] MEDS: 0.9 % SODIUM CHLORIDE 50 ML VIAL IV (13:26)
== END 2024-04-07 13:30 | disposition home or self-care (01) ==
PROVIDERS: PCP Nurse Practitioner Family; Visit Provider Nurse Practitioner
DX: R06.02 Shortness of breath (principal); R94.31 Abnormal electrocardiogram [ECG] [EKG]; R94.39 Abnormal result of other cardiovascular function study
CPT/HCPCS: 75574; Q9967

== ENCOUNTER 2024-06-07 08:37 | Outpatient (CLI) | payer OTHER, SELFPAY ==
[2024-06-07 08:42] LABS: Adenovirus,PCR Not Detected (NotDetected); Bordetella Pertussis Not Detected (NotDetected); Chlamydophila Pneumoniae, PCR Not Detected (NotDetected); Coronavirus 229E Not Detected (NotDetected); Coronavirus NL63 Not Detected (NotDetected); Coronavirus OC43 Not Detected (NotDetected); Coronovirus HKU1,PCR Not Detected (NotDetected); Human Metapneumovirus Not Detected (NotDetected); Influenza A, PCR Not Detected (NotDetected); Influenza AH1, 2009 Not Detected (NotDetected); Influenza AH1, PCR Not Detected (NotDetected); Influenza AH3,PCR Not Detected (NotDetected); Influenza B, PCR Not Detected (NotDetected); Mycoplasma Pneumoniae, PCR Not Detected (NotDetected); Parainfluenza 1, PCR Not Detected (NotDetected); Parainfluenza 2, PCR Not Detected (NotDetected); Parainfluenza 3, PCR Not Detected (NotDetected); Parainfluenza 4, PCR Not Detected (NotDetected); Respiratory Syncytial Virus Not Detected (NotDetected); Rhinovirus/Enterovirus Not Detected (NotDetected)
[2024-06-07 14:52] LABS: Coronavirus 19, PCR Detected (NotDetected)
== END 2024-06-07 23:59 | disposition home or self-care (01) ==
LOC: LAB 08:39
PROVIDERS: PCP Nurse Practitioner Family; Visit Provider Physician Assistant
DX: R09.81 Nasal congestion (principal)
CPT/HCPCS: 87265; 87486; 87581; 87632; 87635

== ENCOUNTER 2024-09-21 16:45 | Outpatient (CLI) | payer OTHER, SELFPAY ==
[2024-09-21 16:44] LABS: Coronavirus 19, PCR Not Detected (NotDetected); Human Rhinovirus Not Detected (NotDetected); Influenza A, PCR Not Detected (NotDetected); Influenza B, PCR Not Detected (NotDetected); Respiratory Syncytial Virus Not Detected (NotDetected)
== END 2024-09-21 23:59 | disposition home or self-care (01) ==
LOC: LAB.DROPOF 16:45
PROVIDERS: PCP Internal Medicine; Visit Provider Internal Medicine
DX: R09.81 Nasal congestion (principal); R06.02 Shortness of breath
CPT/HCPCS: 87631

== ENCOUNTER 2024-09-28 10:40 | Outpatient (CLI) | payer OTHER, SELFPAY ==
[2024-09-28 16:41] LABS: Microscopic, Urine URINE MICROSCOPIC (MICROSCOPIC)
[2024-09-28 17:33] LABS: Appearance,Urine CLEAR (Clear); Bilirubin,Urine Negative (Negative); Blood, Urine Negative (Negative); Color,Urine YELLOW (Yellow); Glucose,Urine (UA) Negative (Negative); Ketones,Urine Negative (Negative); Leukocyte Esterase,Urine Negative (Negative); Nitrate,Urine Negative (Negative); Protein,Urine Negative (Negative); Specific Gravity, Urine >= 1.030 (1.005-1.030); Urobilinogen,Urine 0.2 EU/dl (0.2)
[2024-09-28 19:58] LABS: Bacteria,Urine 2+ /lpf; RBC,Urine Occasional #/hpf (0-3)
== END 2024-09-28 23:59 | disposition home or self-care (01) ==
LOC: LAB.DROPOF 10-02 10:40
PROVIDERS: PCP Nurse Practitioner Family; Visit Provider Nurse Practitioner Family
DX: N39.0 Urinary tract infection, site not specified (principal)
CPT/HCPCS: 81001; 87086

== ENCOUNTER 2024-10-03 14:25 | Emergency (ER) | payer OTHER, SELFPAY ==
[2024-10-03 14:35] VITALS: BP 151/78; PULSE 110; RESP 20; TEMP 36.7; O2SAT 97; BMI 47.2
[2024-10-03 14:48] LABS: Apearance,Urine Clear (Clear); Color,Urine Yellow (Yellow); PH,Urine 5.5 (5.0-8.5)
[2024-10-03 14:49] LABS: Bilirubin,Urine Negative (Negative); Blood, Urine Negative (Negative); Glucose,Urine (UA) Negative (Negative); Ketones,Urine Negative (Negative); Protein,Urine Negative (Negative); UTC Leukocyte Esterase,Urine Negative (Negative); UTC Nitrate,Urine Negative (Negative); Urobilinogen,Urine 0.2 EU/dl (0.2)
--- NOTE | 2024-10-03 14:51 | ED_ITS ---
Discharge Plan Disposition Patient Disposition: Home, Self-Care Condition: Good Prescriptions Prescriptions: No Action famotidine [Pepcid] 20 mg tablet 20 mg PO DAILY Qty: 90 3RF topiramate 50 mg tablet 50 mg PO HS Qty: 90 1RF Rx Instructions: Titrate as directed up to 150mg HS oxcarbazepine [Trileptal] 600 mg tablet 600 mg PO BID Qty: 60 1RF promethazine-DM 6.25-15 mg/5 mL syrup 5 ml PO Q4-6H PRN (Reason: cough) Qty: 118 1RF pseudoephedrine HCl 30 mg tablet 60 mg PO Q6H PRN (Reason: nasal congestion) Qty: 30 0RF nitrofurantoin monohyd/m-cryst [Macrobid] 100 mg capsule 100 mg PO Q12H 7 Days Qty: 14 0RF Rx Instructions: must administer with a meal/food semaglutide (weight loss) 0.25 mg/0.5 mL pen injector 0.25 mg SQ WEEKLY Qty: 2 0RF Rx Instructions: administer weeks 1 through 4 of therapy cholecalciferol (vitamin D3) [Vitamin D3] 50 mcg (2,000 unit) tablet 5,000 unit PO DAILY calcium carbonate [Calcium 500] 500 mg calcium (1,250 mg) tablet,chewable 500 mg PO DAILY loratadine [Loradamed] 10 mg tablet 10 mg PO DAILY PRN (Reason: allergy symptoms) Qty: 90 1RF Ubrelvy 100 mg tablet 100 mg PO ONCE PRN (Reason: chronic migraine ) Qty: 10 5RF Rx Instructions: Take 100 mg immediately at onset of symptoms. May repeat 100 mg after 2 hours if symptoms persist. Max dose 2 tablets in 24 hours. fluoxetine [Prozac] 40 mg capsule 40 mg PO DAILY Qty: 30 2RF ondansetron 4 mg tablet,disintegrating 4 mg PO Q8H PRN (Reason: nausea and vomiting) Qty: 30 0RF ezetimibe [Zetia] 10 mg tablet 10 mg PO HS Qty: 90 3RF albuterol sulfate 90 mcg/actuation HFA aerosol inhaler 2 puff inhalation Q4-6H PRN (Reason: shortness of breath or wheezing) Qty: 8.5 1RF verapamil 240 mg capsule,ext rel. pellets 24 hr 240 mg PO DAILY Qty: 90 3RF spironolactone [Aldactone] 100 mg tablet 100 mg PO DAILY Qty: 90 3RF montelukast [Singulair] 10 mg tablet 10 mg PO DAILY Qty: 90 2RF azelastine 137 mcg (0.1 %) spray,non-aerosol 1 spray intranasal .q6 PRN (Reason: allergy symptoms) 90 Days Qty: 30 3RF Rx Instructions: administer into each nostril pantoprazole 40 mg tablet,delayed release (DR/EC) 40 mg PO DAILY Qty: 90 3RF Qulipta 60 mg tablet 60 mg PO DAILY Qty: 90 3RF Soaanz 40 mg tablet 40 mg PO BID Referrals Follow up/Referrals: Delia Loo APRN [Primary Care Provider] - See instructions Activity Restrictions/Add. Instructions Additional Instructions/Restrictions: Continue antibiotics as prescribed Follow up with Urology as scheduled Straight to ER if pain continues or worsens for further work up and evaluation Straight to ER if any fever, chills, vomiting or worsening of pain Clinical Impressions Clinical Impression: Low back pain Qualifiers: Chronicity: unspecified Back pain laterality: midline Sciatica presence: w ithout sciatica Qualified Code(s): M54.50 - Low back pain, unspecified Instructions Patient Instructions: DI for Low Back Pain Print Language Print Language: Cymraes Discharge ED Provider: Kenisha Araiza [facility] General Stated complaint: lower back pain Mode of Arrival: Ambulatory Source of Information: Patient Limitations: No Limitations Time Seen by Provider: 10/03/24 14:51 Description of Symptoms (Recalled from Triage Doc. by RN): PATIENT C/O BILATERAL LOWER BACK PAIN, BURNING WITH URINATION, CHILLS AND NAUSEA HEENT Symptoms (Recalled from RN notes): No Resp Symptoms (Recalled from RN notes): No Skin Symptoms (Recalled from RN notes): No MS Symptoms (Recalled from RN notes): No Functional Status (Recalled from RN notes): WNL History of Present Illness Provider Complaint: Patient states that she has been seeing Delia Loo for recurrent UTI's and currently on Medication for UTI and suppose to see Urology on Wednesday States that she was at work today and her lower back hurt when she would walk and the pain made her feel nauseous at times concerned that she may have a Kidney stone or something Related Data Home Medications ?Medication ?Instructions ?Recorded ?Confirmed calcium carbonate (Calcium 500) 500 mg PO DAILY Supplement 08/10/19 09/28/24 cholecalciferol (vitamin D3) 50 5,000 unit PO DAILY Supplement 12/14/23 09/28/24 mcg (2,000 unit) tablet (Vitamin D3) torsemide 40 mg tablet (Soaanz) 40 mg PO BID 04/07/24 09/28/24 Previous Rx's ?Medication ?Instructions ?Recorded loratadine 10 mg tablet (Loradamed) 10 mg PO DAILY PRN allergy 01/14/21 symptoms #90 tabs famotidine 20 mg tablet (Pepcid) 20 mg PO DAILY #90 tabs 10/09/22 ubrogepant 100 mg tablet (Ubrelvy) 100 mg PO ONCE PRN chronic 06/22/23 migraine #10 tabs ondansetron 4 mg disintegrating 4 mg PO Q8H PRN nausea and 12/16/23 tablet vomiting #30 tabs topiramate 50 mg tablet 50 mg PO HS migraine headache #90 01/04/24 tabs ezetimibe 10 mg tablet (Zetia) 10 mg PO HS #90 tabs 03/28/24 albuterol sulfate 90 mcg/actuation 2 puff inhalation Q4-6H PRN 04/06/24 aerosol inhaler shortness of breath or wheezing #8.5 grams fluoxetine 40 mg capsule (Prozac) 40 mg PO DAILY #30 caps 05/12/24 verapamil 240 mg 24 hr 240 mg PO DAILY #90 caps 06/28/24 capsule,extended release spironolactone 100 mg tablet 100 mg PO DAILY #90 tabs 07/17/24 (Aldactone) azelastine 137 mcg (0.1 %) nasal 1 spray intranasal .q6 PRN allergy 07/20/24 spray symptoms 90 days #30 mL montelukast 10 mg tablet 10 mg PO DAILY #90 tabs 07/20/24 (Singulair) oxcarbazepine 600 mg tablet 600 mg PO BID #60 tabs 07/28/24 (Trileptal) pantoprazole 40 mg tablet,delayed 40 mg PO DAILY #90 tabs 09/07/24 release promethazine-DM 6.25 mg-15 mg/5 mL 5 ml PO Q4-6H PRN cough #118 mL 09/21/24 oral syrup pseudoephedrine HCl 30 mg tablet 60 mg (2 x 30 mg) PO Q6H PRN nasal 09/21/24 congestion #30 tabs nitrofurantoin 100 mg PO Q12H 7 days #14 caps 09/28/24 monohydrate/macrocrystals 100 mg capsule (Macrobid) semaglutide (weight loss) 0.25 0.25 mg (0.5 mL) SQ WEEKLY #2 mL 09/30/24 mg/0.5 mL subcutaneous pen injector atogepant 60 mg tablet (Qulipta) 60 mg PO DAILY #90 tabs 10/03/24 Allergies Allergy/AdvReac Type Severity Reaction Status Date / Time polymyxin B Allergy Severe Swelling Verified 09/28/24 15:50 of the Eye atorvastatin AdvReac Mild Muscle Pain Verified 09/28/24 15:50 metformin AdvReac Mild Diarrhea Verified 09/28/24 15:50 rosuvastatin (From Crestor) AdvReac Mild Muscle Pain Verified 09/28/24 15:50 Worker's Comp Is this a Worker's Comp case?: No [facility] Disclaimer: The information contained in this section may have been updated after the patient was seen, as this information can be updated by other users. Medical History (Updated 10/03/24 @ 15:11 by Kenisha Araiza APRN) Edema KAMRAN (obstructive sleep apnea) Body mass index (BMI) of 40.1 to 44.9 in adult Sinus congestion COVID-19 Acute rhinosinusitis KAMRAN (obstructive sleep apnea) History of neck swelling Lymphadenopathy Smoking greater than 20 pack years Smoking greater than 30 pack years Multiple lung nodules on CT Dyspnea on exertion Mediastinal lymphadenopathy Hilar lymphadenopathy Burning with urination Painful micturition History of chest pain Dizziness Swelling of right ear Right ear pain BMI 45.0-49.9, adult Diastolic dysfunction Bronchitis Sinusitis Restless leg syndrome Difficulty with CPAP use Right ankle pain Elevated alkaline phosphatase level History of left heart catheterization Migraine Bipolar II disorder BMI 40.0-44.9, adult Maxillary sinusitis, acute Exposure to COVID-19 virus Abdominal pain Family history of heart disease Atypical angina Abnormal cardiovascular stress test Ex-smoker HLD (hyperlipidemia) Obesity Right wrist tendonitis Right leg pain Right leg swelling Dyspnea Depression Chest pain Surgical History History of carpal tunnel surgery History of appendectomy History of cholecystectomy History of tonsillectomy H/O: section History of total hysterectomy Family History Other Anemia Asthma Cancer Diabetes Family history of heart disease Heart attack Hyperlipidemia Hypertension Thyroid disorder Tuberculosis Social History Smoking Status: Former smoker years smoked: 15 smoking status stop date: 09/20/2021 alcohol intake: never substance use type: denies use current occupational status: employed Travel in the last 8 weeks: None household members: family housing: house marital status: number of children: 1 caffeine: Yes Have you lived/traveled outside [place] in past 30 days?: No Contact w/someone who lives/traveled outside US past 30 days?: No Exposure to someone with infectious disease in past 14 days?: No Do you have a fever (greater than 100.4 F or 38 C)?: No Have you tested positive for COVID-19: No Exposed to someone with COVID-19 in past 14 days?: No Do you have a sore throat?: No Do you have a cough?: No Do you have any weakness?: No Do you have any diarrhea?: No Are you experiencing any unusual bleeding?: No Do you have any muscle aches/pain?: Yes Do you have any abdominal pain?: No Are you experiencing loss of taste or smell?: No ROS Obtained: Yes All systems reviewed & no additional complaints except as documented and Yes Systems reviewed as appropriate & no additional complaints except as documented Constitutional Constitutional: Reports system reviewed and no additional complaints, except as documented, Reports as per HPI, Denies body ache, Reports chills (states feels chills when the pain is happening) and Denies fever(s) ENT Ears, Nose, Mouth, and Throat: Reports system reviewed and no additional complaints, except as documented and Reports as per HPI Cardiovascular Cardiovascular: Reports system reviewed and no additional complaints, except as documented and Reports as per HPI Respiratory Respiratory: Reports system reviewed and no additional complaints, except as documented and Reports as per HPI Gastrointestinal Gastrointestingal: Reports system reviewed and no additional complaints, except as documented, as per HPI and nausea; Denies abdominal pain, cramping or vomiting Genitourinary Female Genitourinary: Reports system reviewed and no additional complaints, except as documented, Reports as per HPI, Reports dysuria and Reports flank pain (bilateral) Musculoskeletal Musculoskeletal: Reports system reviewed and no additional complaints, except as documented, Reports as per HPI and Reports back pain (low back pain) Physical Exam General General appearance: alert and in no apparent distress ENT ENT exam: Present mucous membranes moist Respiratory Respiratory exam: Present normal lung sounds bilaterally; Absent respiratory distress or wheezes Cardiovascular Cardiovascular exam: Present regular rate, normal rhythm and normal heart sounds Abdominal Exam Abdominal exam: Present soft and normal bowel sounds; Absent distention, tenderness, guarding or rebound Back Exam Back exam: Present tenderness Back 1 view image: 2 1. Patient reports achy like pain across lower back since Aug, reports today it is bothering her more denies radiation of pain and denies loss of control of bowel or bladder, denies known injury Neurological Exam Neurological exam: Present alert, oriented X3 and normal gait Medical Decision Making Medical Records Screening: Per USPSTF and CDC recommendations, given the prevalence of disease in our region, it is our hospital?s policy to screen for HIV and viral Hepatitis for all patients aged 18 and over and those with ongoing risk factors. Catalino Inquiry Pt receiving controlled substance: No Catalino was queried for this patient: No Vital Signs: 10/03/24 14:35 Temperature 98.1 F Temperature Source Oral Pulse Rate [Left Brachial] 110 H Respiratory Rate 20 Blood Pressure [Left Arm] 151/78 H Blood Pressure Mean [Left Arm] 102 Blood Pressure Source [Left Arm] Automatic Cuff Blood Pressure Position [Left Arm] Sitting 02 Sat by Pulse Oximetry 97 Oxygen Delivery Method Room Air Lab Data Lab results reviewed: Yes I reviewed the patient's lab results. Lab Results 10/03/24 14:37: Urine Color Yellow, Urine Appearance Clear, Urine pH 5.5, Ur Specific [place] 1.020, Urine Protein Negative, Urine Glucose (UA) Negative, Urine Ketones Negative, Urine Blood Negative, Urine Nitrate Negative, Urine Bilirubin Negative, Urine Urobilinogen 0.2, Ur Leukocyte Esterase Negative Orders (Tests/Meds): ORDERS Category Date Time Status Urine Culture Stat Micro 10/03/24 14:33 Received Medical Decision Narrative: Discussed with patient that concerned with possible kidney stones or other infection and recommended transfer to the ED, unable to do CT in the [facility] that we could transfer her to the ED for further work up, labs, evaluation and further testing and she declined States wants to go home and lay down Patient aware of risks and still declined transfer Spoke with PCP office about patient PCP not available at this time to discuss patient but did have opening today at 3:30 in the clinic to see patient and she declined that appointment then again recommended and Discussed transfer to the ED for further testing and work up and she declined states that she wants to go home and will return to the ED if the pain worsens Patient given strict return instructions to return to the ED and she verbalized understanding
[2024-10-03 15:11] VITALS: BP 151/78; PULSE 110; RESP 20; TEMP 36.7; O2SAT 97
== END 2024-10-03 15:15 | disposition home or self-care (01) ==
PROVIDERS: Emergency Provider Nurse Practitioner; PCP Nurse Practitioner Family
DX: M54.50 Low back pain, unspecified (principal)
CPT/HCPCS: 81003; 87086; 99213; G0381

== ENCOUNTER 2024-11-17 07:54 | Day surgery (SDC) | payer OTHER, SELFPAY ==
[2024-11-17 07:57] VITALS: BMI 46.5
[2024-11-17 07:58] VITALS: BP 148/87; PULSE 69; PULSE 87; RESP 18; TEMP 37; O2SAT 98
[2024-11-17] MEDS: LIDOCAINE 2% W/EPI 1:100,000 20ML VIAL 20 ML SUBCUT (08:08)
[2024-11-17] MEDS: CEFAZOLIN SODIUM 1 GM in 0.9 % SODIUM CHLORIDE 50 ML IV (08:08)
[2024-11-17 08:43] VITALS: BP 160/91; PULSE 72; RESP 20; O2SAT 99
--- NOTE | 2024-11-17 12:34 | P.PCN_ITS ---
[facility] Loop Recorder Date: 11/17/24 Time: 08:30 Procedure Performed:: Implantation of loop recorder Indication:: Palpitations Paroxysmal A-fib Technique:: Patient was brought to the cardiac Wheel Alignment Technician. After informed consent obtained, 1% lidocaine with epinephrine was used to anesthetize the site along the left anterior aspect of the chest near the sternal border. Using the preformed scalpel, an incision was made and using the supplied preloaded apparatus, the loop recorder was placed subcutaneously without difficulty. Following the deployment of the loop recorder interrogation of the device was performed to ensure appropriate voltage was being detected. Once this was verified, Steri- Strips were placed over the incision and the patient was prepped to discharge home. Patient tolerated the procedure well with minimal discomfort. Impression:: Successful implantation of loop recorder Serial Number:: [id number]-IQ EL plus Model number [id number] Serial #[id number] Plan:: Routine postop care
== END 2024-11-17 09:05 | disposition home or self-care (01) ==
PROVIDERS: PCP Nurse Practitioner Family; Visit Provider Internal Medicine
DX: I48.91 Unspecified atrial fibrillation (principal); R94.30 Abnormal result of cardiovascular function study, unspecified; E78.5 Hyperlipidemia, unspecified; Z86.16 Personal history of COVID-19; G47.33 Obstructive sleep apnea (adult) (pediatric); R00.2 Palpitations; Z88.1 Allergy status to other antibiotic agents; Z88.8 Allergy status to other drugs, medicaments and biological substances; Z79.899 Other long term (current) drug therapy; Z87.891 Personal history of nicotine dependence; Z68.42 Body mass index [BMI] 45.0-49.9, adult; E66.01 Morbid (severe) obesity due to excess calories
CPT/HCPCS: 33285; C1764; J0690

== ENCOUNTER 2025-02-16 13:40 | Outpatient (CLI) | payer OTHER, SELFPAY ==
--- NOTE | 2025-02-16 13:42 | XR_ITS ---
FINAL REPORT CLINICAL HISTORY: swelling under the ear/and headache states pain right side worsening recently; been dealing with pain since 2014 COMPARISON: None FINDINGS: CERVICAL SPINE 5 views were obtained. There is no acute fracture or malalignment. The disc spaces are preserved. The vertebrae are normal in height. Neural foramen are adequately patent. IMPRESSION: No acute process. Reviewed, Interpreted and Dictated by Anthony Henry MD Transcribed by Imani Cano Authenticated and [facility]
== END 2025-02-16 23:59 | disposition home or self-care (01) ==
LOC: RAD 13:40
PROVIDERS: PCP Nurse Practitioner Family; Visit Provider Nurse Practitioner
DX: M54.2 Cervicalgia (principal); R22.0 Localized swelling, mass and lump, head; R51.9 Headache, unspecified; H92.09 Otalgia, unspecified ear
CPT/HCPCS: 72050

== ENCOUNTER 2025-04-18 08:25 | Outpatient (CLI) | payer OTHER, SELFPAY ==
--- OUTSIDE RECORDS SUMMARY | 2025-04-18 08:28 | XMS_ITS | Encounter Summary ---
Author Organization Healthcare Address [address] [place] [address] Care Team Providers Care Turn Down Attendant Name Role Phone Delia Loo APRN Primary Care Provider [phone] Encounter Details Date Type Department Care Team (Late st Contact Info) Description 09/16/2022 Community [facility] [address] [place] [address] Alyse Arriaza APRN [address] [place] [id number] Obstructive sleep apnea (adult) (pediatric) (Primary Dx) Social History Tobacco Use Types Packs/Day Years Used Date Smoking Tobacco: Every Day Comments Unknown Sex and Gender Information Value Date Recorded Sex Assigned at Not on file Legal Sex Female 8:04 PM EDT Gender Identity Not on file Sexual Orientation Not on file documented as of this encounter Plan of Treatment Not on file documented as of this encounter Visit Diagnoses Diagnosis Obstructive sleep apnea (adult) (pediatric)- Primary documented in this encounter Care Teams Turn Down Attendant Relationship Specialty Start Date End Date Delia Loo APRN [address] [place] [address] PCP - General 09/20/22 documented as of this encounter
--- OUTSIDE RECORDS SUMMARY | 2025-04-18 08:28 | XMS_ITS | Clinical Summary ---
Author Organization [facility] Address [address] [place] [address] Care Team Providers Care Bore Mill Operator For Plastic Name Role Phone Patrick Brwon MD Primary Care Provider [phone] Allergies No known active allergies Medications bisoprolol (ZEBeta) 5 MG tablet Take 1 tablet by mouth Daily. 03/17/2017 Active furosemide (LASIX) 20 MG tablet Take 1 tablet by mouth Daily. 03/03/2017 Active KLOR-CON 10 MEQ CR tablet Take 1 tablet by mouth Daily. 03/03/2017 Active buPROPion SR (WELLBUTRIN SR) 100 MG 12 hr tablet Take 1 tablet by mouth 2 (Two) Times a Day. 06/14/2018 Active diclofenac (VOLTAREN) 1 % gel gel 05/27/2018 Active tiZANidine (ZANAFLEX) 2 MG tablet Take 3 tablets by mouth Daily. 05/27/2018 Active aspirin 81 MG EC tablet Take 81 mg by mouth Daily. Active Cholecalciferol (VITAMIN D3) 2000 units tablet Take 1 tablet by mouth Daily. Active vitamin D (ERGOCALCIFEROL) 82167 units capsule capsule Take 1 capsule by mouth 1 (One) Time Per Week. 4 capsule 2 07/28/2018 Active Phentermine HCl 37.5 MG tablet dispersible Take 1 capsule by mouth Daily. Active Active Problems Problem Noted Date Diagnosed Date Neutrophilia 08/22/2018 Nerve pain Heart palpitations Edema of both legs Post-menopause on HRT (hormone replacement thera py) Hyperlipidemia Resolved Problems Problem Noted Date Diagnosed Date Resolved Date Postsurgical menopause 12/27 Family History Medical History Relation Name Comments Breast cancer Maternal Grandmother Colon cancer Maternal Uncle Hypertension Mother Lung cancer Paternal Grandfather Lung cancer Paternal Grandmother Relation Name Status Comments Maternal Grandmother Maternal Uncle Mother Paternal Grandfather Paternal Grandmother Social History Tobacco Use Types Packs/Day Years Used Date Smoking Tobacco: Former Cigarettes Q uit: 02/2018 Smokeless Tobacco: Never Tobacco Cessation:Ready to Q uit: Yes Alcohol Use Standard Drinks/Week Comments No 0 (1 standard drink = 0.6 oz pur e alcohol) Abuse Screen Answer Date Recorded Unsafe at Home or Work/School Not on file Feels Threatened by Someone? Not on file 07/2023 Does Anyone Keep You from Co ntacting Others or Doint Things Outside the Home? Not on file 06/30/2023 Physical Sign of Abuse Present Not on file 1 Housing Stability Answer Date Recorded Current Living Arrangements Not on file 06/20 Potentially Unsafe Housing Conditions Not on felicia e 06/30/2023 Family and Community Support Answer Gómez e Recorded Help with Day-to-Day Activities Not on file 06/30/2023 Lonely or Isolated Not on file 06/30/2023 Employment Answer Date Recorded Do you want help finding or keeping work or a keisha b? Not on file 06/30/2023 Disabilities Answer Date Recorded Concentrating, Remembering, or Making Decisions Difficulty Not on file 06/30/2023 Doing Errands Independently Difficulty Not on fi le 06/30/2023 Education Answer Date Recorded Help with school or training? Not on file Preferred Language Not on file 06/30/2023 Comments No Sex and Gender Information Value Date Recorded Sex Assigned at Not on file Legal Sex Female 11:04 AM EST Gender Identity Not on file Sexual Orientation Not on file Last Filed Vital Signs Vital Sign Reading Time Taken Comments Blood Pressure 136/86 08/22/2018 10:56 AM EST KARLA E Pulse 71 08/22/2018 10:56 AM EST Temperature 36.6 C (97.9 F) 08/22/2018 10:56 AM EST Respiratory Rate 18 08/22/2018 10:56 AM EST Oxygen Saturation 96% 08/22/2018 10:56 AM EST RA Inhaled Oxygen Concentration - - Weight 111 kg (244 lb) 08/22/2018 10:56 AM EST Height 162.6 cm (5' 4 ) 08/22/2018 10:56 AM EST Body Mass Index 41.88 08/22/2018 10:56 AM EST Plan of Treatment Health Maintenance Due Date Last Done Comments LIPID PANEL 1979 TDAP/TD VACCINES (1 - Tdap) 12/29/1998 ANNUAL PHYSICAL 05/19/2017 HEPATITIS C SCREENING 05/19/2017 Annual Gynecologic Pelvic an d Breast Exam 05/20/2018 05/19/2017 MAMMOGRAM 2019 COVID-19 Vaccine (1 - 2023-2 5 season) 2024 COLOGUARD 12/29/2024 COLON CANCER SCREENING 5 YEA R SIGMOIDOSCOPY 12/29/2024 COLONOSCOPY 12/29/2024 COLORECTAL CANCER SCREENING 12/29/2024 CT COLONOGRAPHY 12/29/2024 FECAL OCCULT BLOOD TEST 12/29/2024 FIT Testing (1 year) 12/29/2024 INFLUENZA VACCINE 06/20/2025 Pneumococcal Vaccine 0-49 Aged Out No longer eligible based on patient's age to complete this topic Procedures Procedure Name Priority Date/Time Associated Diagnosis Comments SCANNED - PAP SMEAR 05/19/2017 from Last 3 Months or Most Recently Relevant to Health Maintenance Results * SCANNED - PAP SMEAR (05/19/2017) Rubio Angeles MD CHART REVIEW TABS Sangeeta l Result from Last 3 Months or Most Recently Relevant to Health Maintenance Care Teams Bore Mill Operator For Plastic Relationship Specialty Start Date End Date Patrick Brown MD [address] [facility] [address] ATTN: [place] [address] PCP - General 12/23/15
--- OUTSIDE RECORDS SUMMARY | 2025-04-18 08:28 | XMS_ITS | Clinical Summary ---
Author Organization [facility] Address [address] [place] [address] Care Team Providers Care Apprentice Cook Name Role Phone Eze Delia Michelle APRN Primary Care Provider [phone] Family History Medical History Relation Name Comments Throat cancer Maternal Grandfather FH: th roat cancer Throat cancer Other FH: throat can cer Breast cancer Paternal Grandmother FH: br east cancer Lung cancer Paternal Grandmother FH: rigoberto g cancer Relation Name Status Comments Maternal Grandfather Other Paternal Grandmother Social History Tobacco Use Types Packs/Day Years Used Date Smoking Tobacco: Every Day Comments Unknown Sex and Gender Information Value Date Recorded Sex Assigned at Not on file Legal Sex Female 8:04 PM EDT Gender Identity Not on file Sexual Orientation Not on file Plan of Treatment Health Maintenance Due Date Last Done Comments [facility]-Depression Screening 1979 [facility]-/Child/Adol SDOH Screenings 1979 [facility]Y-Varicella Vaccines (1 of 2 - 13+ 2-dose series) 12/29/1992 HPV Vaccines (1 - 3-dose series) 12/29/1994 UKY- SDOH Screenings 12/29/1997 UKY-Adult SDOH Screenings 12/29/1997 UKY-Hepatitis B Vaccines (1 of 3 - 19+ 3-dose series) 12/29/1998 UKY-Pap Smear 12/29/2000 [facility]Y-Cervical Cancer Screening 12/29/2009 UKY-HPV/Cotest 12/29/2009 [id number] Vaccine (2 - 20 24-25 season) 2024 12/13/2020 CT Colonography 12/29/2024 Colonoscopy 12/29/2024 FIT-DNA 12/29/2024 FIT 12/29/2024 FOBT 12/29/2024 Sigmoidoscopy 12/29/2024 UKY-Colorectal Cancer Screening 12/29/2024 UKY-Influenza Vaccine (#1) 2025 [facility]Y-DTaP,Tdap,and Td Vaccine s (2 - Td or Tdap) 07/10/2029 07/10/2019 UKY-Zoster Vaccines (1 of 2) 12/29/2029 UKY-HIB Vaccines Aged Out No longer e ligible based on patient's age to complete this topic [facility]Y-Hepatitis A Vaccines Aged Out No longer eligible based on patient's age to complete this topic UKY-IPV Vaccines Aged Out No longer e ligible based on patient's age to complete this topic UKY-Pneumococcal Vaccine: Pediatrics (0 to 5 Years) and At-Risk Patients (6 to 49 Years) Aged Out No long er eligible based on patient's age to complete this topic UKY-Rotavirus Vaccines Aged Out No lo nger eligible based on patient's age to complete this topic Insurance NEDAALEXANDRA MARC [id number] [facility] Care Teams Apprentice Cook Relationship Specialty Start Date End Date Delia Loo APRN [address] [place] [address] PCP - General 09/20/22
--- NOTE | 2025-04-18 08:30 | CA_ITS ---
FINAL REPORT CLINICAL HISTORY: Leg pain x 2 weeks no injury COMPARISON: None FINDINGS: DUPLEX VENOUS SONOGRAPHY OF THE RIGHT LOWER EXTREMITY Multiple transverse and longitudinal scans were performed of the femoropopliteal deep venous system, with augmentation and compression maneuvers. HISTORY: Pain FINDINGS: Normal phasic flow was noted in the visualized deep venous system. No intraluminal increased echogenicity is noted to suggest thrombus. There is normal compression and augmentation of the venous structures. No abnormal venous collaterals are seen. IMPRESSION: No evidence of deep venous thrombosis of the right lower extremity. Reviewed, Interpreted and Dictated by Joyce Strickland MD Transcribed by Sera Babni Authenticated and [facility]
== END 2025-04-18 23:59 | disposition home or self-care (01) ==
LOC: RT 08:26
PROVIDERS: PCP Nurse Practitioner Family; Visit Provider Nurse Practitioner
DX: M79.604 Pain in right leg (principal)
CPT/HCPCS: 93971

== ENCOUNTER 2025-05-09 07:10 | Outpatient (CLI) | payer OTHER, SELFPAY ==
--- OUTSIDE RECORDS SUMMARY | 2025-05-09 07:13 | XMS_ITS | Clinical Summary ---
Author Organization [facility] Address [address] [place] [id number] Care Team Providers Care Manager Terminal Name Role Phone Eze Delia Michelle APRN Primary Care Provider [phone] Family History Medical History Relation Name Comments [...] Date Last Done Comments [facility]-Depression Screening 1979 [facility]-Infant/Child/Adol SDOH Screenings 1979 [facility]Y-Varicella Vaccines (1 of 2 - 13+ 2-dose series) 12/29/1992 [facility]- SDOH Screenings 12/29/1997 [facility]Y-Adult SDOH Screenings 12/29/1997 [facility]Y-Hepatitis B Vaccines (1 of 3 - 19+ 3-dose series) 12/29/1998 [facility]Y-Pap Smear 12/29/2000 HPV Vaccines (1 - 3-dose SCD M series) 12/29/2006 [facility]-Cervical Cancer Screening 12/29/2009 [facility]Y-HPV/Cotest 12/29/2009 [id number] Vaccine (2 - 20 24-25 season) 2024 [...] patient's age to complete this topic Insurance GEOVANNY [place] WOOD [id number] [facility] Care Teams Manager Terminal Relationship Specialty Start Date End Date Delia Loo APRN [address] [place] [address] PCP - General 09/20/22
--- OUTSIDE RECORDS SUMMARY | 2025-05-09 07:13 | XMS_ITS | Clinical Summary ---
Author Organization [facility] Address [address] [place] [address] Care Team Providers Care Mine Expert Name Role Phone Patrick Brown MD Primary Care Provider [phone] Allergies No known active allergies Medications bisoprolol [...] by mouth Daily. Active vitamin D (ERGOCALCIFEROL) 36927 units capsule capsule Take 1 capsule by [...] Recently Relevant to Health Maintenance Care Teams Mine Expert Relationship Specialty Start Date End Date Patrick Brown MD [address] [facility] [address] ATTN: [place] [address] PCP - General 12/23/15
--- OUTSIDE RECORDS SUMMARY | 2025-05-09 07:13 | XMS_ITS | Encounter Summary ---
Author Organization [facility] Address [address] [place] [address] Care Team Providers Care Clinical Data Assistant Name Role Phone Delia Loo APRN Primary Care Provider [phone] Encounter Details Date Type Department Care Team (Late st Contact Info) Description 09/16/2022 Community [facility] Community Practice [address] [place] [address] Alyse Arriaza APRN [address] [place] [id number] Obstructive sleep apnea (adult) (pediatric) (Primary Dx) [...] Primary documented in this encounter Care Teams Clinical Data Assistant Relationship Specialty Start Date End Date Delia Loo APRN [address] [place] [address] PCP - General 09/20/22 documented as of this encounter
[2025-05-09 08:13] LABS: Cholesterol 241 mg/dl (140-200); HDL Cholesterol 49 mg/dl (40-60); Triglycerides 253 mg/dl (30-150)
[2025-05-10 15:11] LABS: Cortisol,AM 11.2 ug/dL (6.2-19.4)
== END 2025-05-09 23:59 | disposition home or self-care (01) ==
LOC: LAB 07:11
PROVIDERS: Physician Assistant; PCP Nurse Practitioner Family; Visit Provider Nurse Practitioner
DX: G47.33 Obstructive sleep apnea (adult) (pediatric) (principal); E66.01 Morbid (severe) obesity due to excess calories; H05.20 Unspecified exophthalmos; E24.9 Cushing's syndrome, unspecified; E78.5 Hyperlipidemia, unspecified
CPT/HCPCS: 36415; 80061; 82024; 82533

== ENCOUNTER 2025-06-09 16:14 | Emergency (ER) | payer OTHER, SELFPAY ==
[2025-06-09] VITALS (9 sets, daily range): BP systolic 123–142; BP diastolic 63–92; PULSE 78–90; RESP 16–18; TEMP 36.7–37; O2SAT 95–98; BMI 45.9
--- OUTSIDE RECORDS SUMMARY | 2025-06-09 16:21 | XMS_ITS | Clinical Summary ---
Author Organization [facility] Address [address] [place] [address] Care Team Providers Care Data Acquisition Technician Name Role Phone Eze Delia Michelle APRN Primary Care Provider [phone] Family History Medical History Relation Name Comments [...] 12/29/2006 [facility]-Cervical Cancer Screening 12/29/2009 [facility]-HPV/Cotest 12/29/2009 CT Colonography 12/29/2024 Colonoscopy 12/29/2024 FIT-DNA 12/29/2024 FIT 12/29/2024 FOBT 12/29/2024 Sigmoidoscopy 12/29/2024 [facility]Y-Colorectal Cancer Screening 12/29/2024 [id number] Vaccine (2 - 20 25- season) 2025 12/13/2020 [facility]Y-Influenza Vaccine (#1) 2025 [facility]-DTaP,Tdap,and Td Vaccine [...] to complete this topic Insurance NEDAALEXANDRA MARC [id number] [facility] Care Teams Data Acquisition Technician Relationship Specialty Start Date End Date Delia Loo APRN [address] [place] [address] PCP - General 09/20/22
--- OUTSIDE RECORDS SUMMARY | 2025-06-09 16:21 | XMS_ITS | Encounter Summary ---
Author Organization [facility] Address [address] [place] [address] Care Team Providers Care Engineering Technician Parking Name Role Phone Delia Loo APRN Primary Care Provider [phone] Encounter Details Date Type Department Care Team (Late st Contact Info) Description 09/16/2022 Community [facility] Community Practice [address] [place] [address] Alyse Arriaza APRN [address] [place] [id number] Obstructive sleep apnea (adult) (pediatric) (Primary Dx) [...] Primary documented in this encounter Care Teams Engineering Technician Parking Relationship Specialty Start Date End Date Delia Loo APRN [address] [place] [address] PCP - General 09/20/22 documented as of this encounter
--- OUTSIDE RECORDS SUMMARY | 2025-06-09 16:21 | XMS_ITS | Clinical Summary ---
Author Organization [facility] Address [address] [place] [address] Care Team Providers Care Glazier Metal Furniture Name Role Phone Patrick Brown MD Primary Care Provider [phone] Allergies No known active allergies Medications bisoprolol [...] by mouth Daily. Active vitamin D (ERGOCALCIFEROL) 37958 units capsule capsule Take 1 capsule by [...] d Breast Exam 05/20/2018 05/19/2017 MAMMOGRAM 2019 COLOGUARD 12/29/2024 COLON CANCER SCREENING 5 YEA R SIGMOIDOSCOPY 12/29/2024 COLONOSCOPY 12/29/2024 COLORECTAL CANCER SCREENING 12/29/2024 CT COLONOGRAPHY 12/29/2024 FECAL OCCULT BLOOD TEST 12/29/2024 FIT Testing (1 year) 12/29/2024 INFLUENZA VACCINE 04/20/2025 Pneumococcal Vaccine 0-49 Aged Out No longer [...] Recently Relevant to Health Maintenance Care Teams Gl[employer]ier [employer] Furniture Relationship Specialty Start Date End Date Patrick Brown MD [address] [facility] [address] ATTN: [place] [address] PCP - General 12/23/15
--- NOTE | 2025-06-09 16:23 | XR_ITS ---
PROCEDURE INFORMATION: Exam: XR Left Forearm Exam date and time: 06/09/2025 4:40 PM Age: 44 years old Clinical indication: Injury or trauma; Fall; Other: Pain; Additional info: Fall, left forearm pain/swelling TECHNIQUE: Imaging protocol: Radiologic exam of the left forearm. Views: 2 views. COMPARISON: CR XR WRIST LT MIN 3V 10/05/2023 9:50 AM FINDINGS: Bones/joints: No fracture of the left radius or ulna is appreciated. No abnormality of alignment at the left elbow or wrist appreciated. Soft tissues: Mild soft tissue swelling dorsal distal left forearm. No elbow joint effusion appreciated. IMPRESSION: No acute bony abnormality of the left forearm appreciated. Mild soft tissue swelling distal left forearm noted.
--- NOTE | 2025-06-09 16:23 | XR_ITS ---
PROCEDURE INFORMATION: Exam: XR Left Wrist Exam date and time: 06/09/2025 4:40 PM Age: 44 years old Clinical indication: Injury or trauma; Fall; Other: Pain; Additional info: Fall, left wrist pain/swelling TECHNIQUE: Imaging protocol: Radiologic exam of the left wrist. Views: 1 or 2 views. COMPARISON: CR XR WRIST LT MIN 3V 10/05/2023 9:50 AM FINDINGS: Bones/joints: Normal. Soft tissues: Normal. IMPRESSION: No acute findings. No significant change from October 05, 2023 appreciated.
--- NOTE | 2025-06-09 16:23 | XR_ITS ---
PROCEDURE INFORMATION: Exam: XR Left Hand Exam date and time: 06/09/2025 4:40 PM Age: 44 years old Clinical indication: Injury or trauma; Fall; Other: Pain; Additional info: Fall, left hand pain/swelling TECHNIQUE: Imaging protocol: Radiologic exam of the left hand. Views: 1 or 2 views. COMPARISON: CR XR WRIST LT MIN 3V 10/05/2023 9:50 AM FINDINGS: Bones/joints: Normal. Soft tissues: Normal. IMPRESSION: No acute findings.
--- NOTE | 2025-06-09 16:23 | XR_ITS ---
PROCEDURE INFORMATION: Exam: XR Left Femur Exam date and time: 06/09/2025 4:40 PM Age: 44 years old Clinical indication: Injury or trauma; Fall; Other: Pain; Additional info: Fall, brusing/pain left lateral thigh TECHNIQUE: Imaging protocol: Radiologic exam of the left femur. Views: 2 views. COMPARISON: US - CA VENOUS DOPPLER LE BI 09/08/2019 12:26 PM FINDINGS: Bones/joints: No acute bony abnormality of the left femur identified. No abnormality of alignment at the left hip or knee appreciated. Soft tissues: Unremarkable. IMPRESSION: No acute fracture left femur appreciated. Limited visualization of the left femoral head and subcapital region due to overlying soft tissue artifact.
--- NOTE | 2025-06-09 16:24 | HMH.EDGENADL ---
Discharge Plan Disposition Patient Disposition: Home, Self-Care Prescriptions Prescriptions: No Action famotidine [Pepcid] 20 mg tablet 20 mg PO DAILY Qty: 90 3RF topiramate 50 mg tablet 50 mg PO HS Qty: 90 1RF Rx Instructions: Titrate as directed up to 150mg HS oxcarbazepine [Trileptal] 600 mg tablet 600 mg PO BID Qty: 60 1RF pseudoephedrine HCl 30 mg tablet 60 mg PO Q6H PRN (Reason: nasal congestion) Qty: 30 0RF atomoxetine 40 mg capsule 40 mg PO BID Qty: 60 4RF cholecalciferol (vitamin D3) [Vitamin D3] 50 mcg (2,000 unit) tablet 5,000 unit PO DAILY calcium carbonate [Calcium 500] 500 mg calcium (1,250 mg) tablet,chewable 500 mg PO DAILY loratadine [Loradamed] 10 mg tablet 10 mg PO DAILY PRN (Reason: allergy symptoms) Qty: 90 1RF Ubrelvy 100 mg tablet 100 mg PO ONCE PRN (Reason: chronic migraine ) Qty: 10 5RF Rx Instructions: Take 100 mg immediately at onset of symptoms. May repeat 100 mg after 2 hours if symptoms persist. Max dose 2 tablets in 24 hours. fluoxetine [Prozac] 40 mg capsule 40 mg PO DAILY Qty: 30 2RF ondansetron 4 mg tablet,disintegrating 4 mg PO Q8H PRN (Reason: nausea and vomiting) Qty: 30 0RF ezetimibe [Zetia] 10 mg tablet 10 mg PO HS Qty: 90 3RF albuterol sulfate 90 mcg/actuation HFA aerosol inhaler 2 puff inhalation Q4-6H PRN (Reason: shortness of breath or wheezing) Qty: 8.5 1RF verapamil 240 mg capsule,ext rel. pellets 24 hr 240 mg PO DAILY Qty: 90 3RF spironolactone [Aldactone] 100 mg tablet 100 mg PO DAILY Qty: 90 3RF azelastine 137 mcg (0.1 %) spray,non-aerosol 1 spray intranasal .q6 PRN (Reason: allergy symptoms) 90 Days Qty: 30 3RF Rx Instructions: administer into each nostril Qulipta 60 mg tablet 60 mg PO DAILY Qty: 90 3RF ondansetron 8 mg tablet,disintegrating 8 mg PO Q8H PRN (Reason: nausea) Qty: 20 0RF promethazine 25 mg tablet 25 mg PO Q6H PRN (Reason: nausea and vomiting) Qty: 20 0RF Repatha Syringe 140 mg/mL syringe See Rx Instructions .ROUTE .COMPLEX Qty: 1 2RF Dose Instruction: inject 140mg subcutaneously ever 2 WEEKS DIRECTED Rx Instructions: inject 140mg subcutaneously ever 2 WEEKS DIRECTED Soaanz 40 mg tablet 40 mg PO BID Referrals Follow up/Referrals: Delia Loo APRN [Primary Care Provider, Family Practice] - See instructions Activity Restrictions/Add. Instructions Additional Instructions/Restrictions: Keep the wounds clean by using gentle soap and water. If there is any evidence of infection, such as increased redness, pus draining from the wound, fever or if you become concerned for your health for any reason, return to the emergency department for evaluation. There is no evidence of broken bones or dislocations on today's x-rays. You have soft tissue bruising and swelling that will improve over time. You can take Tylenol and ibuprofen and use ice packs and heating pads as needed to help with symptoms. Clinical Impressions Clinical Impression: Injury of left forearm, Fall, Hematoma of left thigh Print Language Print Language: Gambian Discharge ED Provider: Steve Cooper General Adult HPI General Chief complaint: Fall Stated complaint: AO9-20 fell off porch hurt left arm and hip Time Seen by Provider: 06/09/25 16:18 History of Present Illness HPI narrative: Swapna Batista is a 44y female with a history of hypertension who presents to the emergency department after a fall. Patient states that they are currently building a home and she was walking up temporary steps made of cinderblock when one of the blocks fell out from underneath her, causing her to fall and hit her left arm on the cinderblock and a tree. She also states that she hit her left thigh and scraped her left millan on the way down. She states that she was approximately 4 cinderblocks up. She denies any head trauma or loss of consciousness. She is mainly complaining of pain in her left forearm. She has scrapes and cuts in this area and does not know when her last tetanus shot was. Related Data Home Medications ?Medication ?Instructions ?Recorded ?Confirmed calcium carbonate (Calcium 500) 500 mg PO DAILY Supplement 08/10/19 05/16/25 cholecalciferol (vitamin D3) 50 5,000 unit PO DAILY Supplement 12/14/23 05/16/25 mcg (2,000 unit) tablet (Vitamin D3) torsemide 40 mg tablet (Soaanz) 40 mg PO BID 04/07/24 05/16/25 Previous Rx's ?Medication ?Instructions ?Recorded loratadine 10 mg tablet (Loradamed) 10 mg PO DAILY PRN allergy 01/14/21 symptoms #90 tabs famotidine 20 mg tablet (Pepcid) 20 mg PO DAILY #90 tabs 10/09/22 ubrogepant 100 mg tablet (Ubrelvy) 100 mg PO ONCE PRN chronic 06/22/23 migraine #10 tabs ondansetron 4 mg disintegrating 4 mg PO Q8H PRN nausea and 12/16/23 tablet vomiting #30 tabs topiramate 50 mg tablet 50 mg PO HS migraine headache #90 01/04/24 tabs ezetimibe 10 mg tablet (Zetia) 10 mg PO HS #90 tabs 03/28/24 albuterol sulfate 90 mcg/actuation 2 puff inhalation Q4-6H PRN 04/06/24 aerosol inhaler shortness of breath or wheezing #8.5 grams fluoxetine 40 mg capsule (Prozac) 40 mg PO DAILY #30 caps 05/12/24 verapamil 240 mg 24 hr 240 mg PO DAILY #90 caps 06/28/24 capsule,extended release spironolactone 100 mg tablet 100 mg PO DAILY #90 tabs 07/17/24 (Aldactone) azelastine 137 mcg (0.1 %) nasal 1 spray intranasal .q6 PRN allergy 07/20/24 spray symptoms 90 days #30 mL oxcarbazepine 600 mg tablet 600 mg PO BID #60 tabs 07/28/24 (Trileptal) pseudoephedrine HCl 30 mg tablet 60 mg (2 x 30 mg) PO Q6H PRN nasal 09/21/24 congestion #30 tabs atogepant 60 mg tablet (Qulipta) 60 mg PO DAILY #90 tabs 10/03/24 ondansetron 8 mg disintegrating 8 mg PO Q8H PRN nausea #20 tabs 01/25/25 tablet promethazine 25 mg tablet 25 mg PO Q6H PRN nausea and 02/23/25 vomiting #20 tabs atomoxetine 40 mg capsule 40 mg PO BID #60 caps 05/16/25 evolocumab 140 mg/mL subcutaneous See Rx Instructions .Route 06/07/25 syringe (Repatha Syringe) .COMPLEX #1 mL Allergies Allergy/AdvReac Type Severity Reaction Status Date / Time polymyxin B Allergy Severe Swelling Verified 03/14/25 15:28 of the Eye atorvastatin AdvReac Mild Muscle Pain Verified 03/14/25 15:28 metformin AdvReac Mild Diarrhea Verified 03/14/25 15:28 rosuvastatin (From Crestor) AdvReac Mild Muscle Pain Verified 03/14/25 15:28 PFSH PFS Disclaimer: The information contained in this section may have been updated after the patient was seen, as this information can be updated by other users. Medical History (Updated 06/09/25 @ 18:20 by Steve Cooper MD) TMJ (dislocation of temporomandibular joint) Edema KAMRAN (obstructive sleep apnea) Body mass index (BMI) of 40.1 to 44.9 in adult Sinus congestion COVID-19 Acute rhinosinusitis KAMRAN (obstructive sleep apnea) History of neck swelling Lymphadenopathy Smoking greater than 20 pack years Smoking greater than 30 pack years Multiple lung nodules on CT Dyspnea on exertion Mediastinal lymphadenopathy Hilar lymphadenopathy Burning with urination Painful micturition History of chest pain Dizziness Swelling of right ear Right ear pain BMI 45.0-49.9, adult Diastolic dysfunction Bronchitis Sinusitis Restless leg syndrome Difficulty with CPAP use Right ankle pain Elevated alkaline phosphatase level History of left heart catheterization Migraine BMI 40.0-44.9, adult Maxillary sinusitis, acute Exposure to COVID-19 virus Abdominal pain Family history of heart disease Atypical angina Abnormal cardiovascular stress test Ex-smoker HLD (hyperlipidemia) Obesity Right wrist tendonitis Right leg pain Right leg swelling Dyspnea Depression Chest pain Surgical History History of carpal tunnel surgery History of appendectomy History of cholecystectomy History of tonsillectomy H/O: section History of total hysterectomy Family History Other Anemia Asthma Cancer Diabetes Family history of heart disease Heart attack Hyperlipidemia Hypertension Thyroid disorder Tuberculosis Social History Smoking Status: Never smoker years smoked: 15 smoking status stop date: 09/20/2021 alcohol intake: never substance use type: denies use current occupational status: employed Travel in the last 8 weeks?: None household members: family housing: house marital status: number of children: 1 caffeine: Yes Have you lived/traveled outside US in past 30 days?: No Contact w/someone who lives/traveled outside US past 30 days?: No Exposure to someone with infectious disease in past 14 days?: No Do you have a fever (greater than 100.4 F or 38 C)?: No Have you tested positive for COVID-19?: No Exposed to someone with COVID-19 in past 14 days?: No Do you have a sore throat?: No Do you have a cough?: No Do you have any weakness?: No Do you have any diarrhea?: No Are you experiencing any unusual bleeding?: No Do you have any muscle aches/pain?: No Do you have any abdominal pain?: No Are you experiencing loss of taste or smell?: No Other Medical History Have you received the Flu Vaccine for this season: No Have you received the Pneumonia Vaccine: No ROS Obtained: Yes Systems reviewed as appropriate & no additional complaints except as documented Physical Exam General General appearance: alert and in no apparent distress Head Head exam: atraumatic Eye Eye exam: Present normal appearance ENT ENT exam: Present normal external ear exam Neck Neck exam: Present full ROM Chest Chest inspection: Present symmetric chest wall rise Respiratory Respiratory exam: Present normal lung sounds bilaterally; Absent respiratory distress Cardiovascular Cardiovascular exam: Present regular rate and normal rhythm Abdominal Exam Abdominal exam: Present soft; Absent tenderness or guarding Extremities Exam Extremities exam: Present normal inspection Expanded Upper Extremity Exam Left: L/R Arms Top View:  1. Tenderness, swelling, superficial abrasions 2. bruising and tenderness Comment: Left upper extremity: Tenderness over the mid forearm with swelling in this area. Full range of motion with flexion extension of the wrist. 2+ radial pulse. Sensation grossly intact. Fully intact flexion and extension of all fingers. Expanded Lower Extremity Exam Left: Leg image:  1. Superficial abrasion, hematoma, tenderness 2. Superficial abrasion Back Exam Back exam: Present normal inspection Neurological Exam Neurological exam: Present alert and oriented X3 Psychiatric Psychiatric exam: Present normal affect Skin Skin exam: Present warm and dry Medical Decision Making Medical Records Screening: Per USPSTF and CDC recommendations, given the prevalence of disease in our region, it is our hospital?s policy to screen for HIV and viral Hepatitis for all patients aged 18 and over and those with ongoing risk factors. [place]ino Inquiry Pt receiving controlled substance: No Vital Signs: 06/09/25 16:23 Temperature 98.6 F Temperature Source Oral Pulse Rate [Right Radial] 90 Respiratory Rate 18 Blood Pressure [Right Arm] 141/92 H Blood Pressure Mean [Right Arm] 108 Blood Pressure Source [Right Arm] Manual Cuff/ Auscultation 02 Sat by Pulse Oximetry 95 Oxygen Delivery Method Room Air Orders (Tests/Meds): ED MEDICATIONS Discontinued Medications Generic Name Dose Route Start Last Admin Trade Name Freq PRN Reason Stop Dose Admin Acetaminophen 1,000 mg 06/09/25 16:23 06/09/25 16:49 Acetaminophen 500mg Tab PO 06/09/25 16:24 1,000 mg ONCE ONE Administration Ibuprofen 600 mg 06/09/25 16:23 06/09/25 16:49 Ibuprofen 600 Mg Tablet PO 06/09/25 16:24 600 mg ONCE ONE Administration Tetanus/Reduced Diphtheria/Acell Pertussis 0.5 ml 06/09/25 16:23 06/09/25 16:49 Tet/Diphth/Pert-Adult 0.5ml Syringe IM 06/09/25 16:24 0.5 ml .ONCE ONE Administration ORDERS Category Date Time Status Femur XR left 2 views [XR femur LT 2V] Stat Exams 06/09/25 16:23 Completed Forearm XR left 2 views [XR forearm LT 2V] Stat Exams 06/09/25 16:23 Completed Hand XR left 2 views [XR hand LT 2V] Stat Exams 06/09/25 16:23 Completed Wrist XR left 2 views [XR wrist LT 2V] Stat Exams 06/09/25 16:23 Completed Medical Decision Narrative: Swapna Batista is a 44y female with a history of hypertension who presents to the emergency department after a fall. Patient states that they are currently building a home and she was walking up temporary steps made of cinderblock when one of the blocks fell out from underneath her, causing her to fall and hit her left arm on the cinderblock and a tree. She also states that she hit her left thigh and scraped her left millan on the way down. She states that she was approximately 4 cinderblocks up. She denies any head trauma or loss of consciousness. She is mainly complaining of pain in her left forearm. She has scrapes and cuts in this area and does not know when her last tetanus shot was. On arrival, patient is hemodynamically stable, no acute distress, breathing comfortably on room air. She appears uncomfortable is mainly complaining of pain in her left forearm. She has superficial abrasions over the left forearm with tenderness and swelling in this area. She has full strength and range of motion at the wrist, thumb and fingers. Sensation grossly intact. 2+ radial pulse. She has some bruising over the dorsal aspect of the left hand with tenderness in this area. She has superficial abrasion and hematoma to the left lateral thigh. Very superficial abrasion over the left lateral millan. She is ambulatory. Physical exam is otherwise unremarkable. Differential diagnosis includes, but is not limited to: Fracture, hematoma, soft tissue injury, low concern for neurovascular injury given reassuring physical exam. The most morbid conditions were considered and workup was based on these. X-ray imaging of the left upper extremity including the forearm, wrist and hand were obtained to evaluate for bony injury. Will obtain plain films of the left thigh as well. Patient is nontender in her distal left lower extremity. Patient was administered oral Tylenol and ibuprofen for pain relief. Will update patient's tetanus shot. X-ray imaging interpreted by me personally. No acute fracture dislocations. There is some soft tissue edema in the mid forearm. See final radiology report for details. On reassessment, patient remains in stable condition. I encouraged her to keep her wounds clean by using gentle soap and water and to return if there is any evidence of infection. Tylenol and ibuprofen recommended for pain as well as ice packs and heating pads. All questions were answered. Return precautions were given. She demonstrated understanding and was in agreement this plan. She was then discharged from the emergency department in stable condition. Critical Care Critical Care Time Critical Care Time: No
[2025-06-09] MEDS: IBUPROFEN 600 MG TABLET PO (16:49)
[2025-06-09] MEDS: ACETAMINOPHEN 500MG TAB 1000 MG PO (16:49)
[2025-06-09] MEDS: TET/DIPHTH/PERT-ADULT 0.5ML SYRINGE 0.5 ML IM (16:49)
== END 2025-06-09 18:57 | disposition home or self-care (01) ==
PROVIDERS: Emergency Provider Student in an Organized Health Care Education/Training Program; PCP Nurse Practitioner Family
DX: S52.502A Unspecified fracture of the lower end of left radius, initial encounter for closed fracture (principal); S70.12XA Contusion of left thigh, initial encounter; I10 Essential (primary) hypertension; W10.8XXA Fall (on) (from) other stairs and steps, initial encounter
CPT/HCPCS: 73090; 73100; 73120; 73552; 90471; 90715; 99284

== ENCOUNTER 2025-06-11 09:04 | Outpatient (CLI) | payer OTHER, SELFPAY ==
--- NOTE | 2025-06-11 09:07 | XR_ITS ---
FINAL REPORT CLINICAL HISTORY: left hand pain FINDINGS: AP, oblique, and lateral views of the left hand were obtained. There is no prior exam for comparison. There is no acute fracture of the left hand. The joint spaces are preserved. The soft tissues are normal. IMPRESSION: No acute osseous abnormality of the left hand. Reviewed, Interpreted and Dictated by Joyce Strickland MD Transcribed by Imani Cano Authenticated and [facility]
--- NOTE | 2025-06-11 09:07 | XR_ITS ---
FINAL REPORT CLINICAL HISTORY: left forearm pain FINDINGS: AP and lateral views of the left forearm are obtained. There is no prior exam for comparison. There is no acute osseous abnormality of the left forearm. The wrist and elbow are intact. There is soft tissue edema along the dorsal aspect of the distal forearm. No evidence of radiopaque foreign body. IMPRESSION: Soft tissue swelling without acute osseous abnormality of the left forearm. Reviewed, Interpreted and Dictated by Joyce Strickland MD Transcribed by Imani Cano Authenticated and . [facility]
--- NOTE | 2025-06-11 09:07 | XR_ITS ---
FINAL REPORT CLINICAL HISTORY: left wrist pain FINDINGS: AP, oblique, and lateral views of the left wrist were obtained. There is no prior exam for comparison. There is no acute fracture or dislocation. The joint spaces are preserved. There is soft tissue edema along the dorsal aspect of the distal forearm. IMPRESSION: Soft tissue edema without acute osseous abnormality of the left wrist. Reviewed, Interpreted and Dictated by Joyce Strickland MD Transcribed by Imani Cano Authenticated and [facility]
--- OUTSIDE RECORDS SUMMARY | 2025-06-11 09:34 | XMS_ITS | Clinical Summary ---
Author Organization [facility] Address [address] [place] [address] Care Team Providers Care Lobby Attendant Name Role Phone Patrick Brown MD Primary Care Provider [phone] Allergies No known active allergies Medications bisoprolol [...] by mouth Daily. Active vitamin D (ERGOCALCIFEROL) 59728 units capsule capsule Take 1 capsule by [...] Recently Relevant to Health Maintenance Care Teams Lobby Attendant Relationship Specialty Start Date End Date Patrick Brown MD [address] [place] [facility] [address] ATTN: [place] [address] PCP - General 12/23/15
--- OUTSIDE RECORDS SUMMARY | 2025-06-11 09:34 | XMS_ITS | Encounter Summary ---
Author Organization [facility] Address [address] [place] [address] Care Team Providers Care Import/Export Specialist Name Role Phone Delia Loo APRN Primary Care Provider [phone] Encounter Details Date Type Department Care Team (Late st Contact Info) Description 09/16/2022 [facility] [address] [place] [address] Alyse Arriaza APRN [address] [place] [id number] Obstructive sleep apnea (adult) (pediatric) (Primary Dx) [...] Primary documented in this encounter Care Teams Import/Export Specialist Relationship Specialty Start Date End Date Delia Loo APRN [address] [place] [address] PCP - General 09/20/22 documented as of this encounter
--- OUTSIDE RECORDS SUMMARY | 2025-06-11 09:34 | XMS_ITS | Clinical Summary ---
Author Organization [facility] Address [address] [place] [address] Care Team Providers Care Premium Note Interest Calculator Clerk Name Role Phone Eze Delia Michelle APRN Primary Care Provider [phone] Family History Medical History Relation Name Comments [...] 12/29/2024 Sigmoidoscopy 12/29/2024 [facility]-Colorectal Cancer Screening 12/29/2024 [id number] Vaccine (2 - 20 25- season) 2025 [...] to complete this topic Insurance [place] MARC [id number] [facility] Care Teams Premium Note Interest Calculator Clerk Relationship Specialty Start Date End Date Delia Loo APRN [address] [place] [address] PCP - General 09/20/22
== END 2025-06-11 23:59 | disposition home or self-care (01) ==
LOC: RAD 09:05
PROVIDERS: PCP Nurse Practitioner Family; Visit Provider Physician Assistant
DX: M79.89 Other specified soft tissue disorders (principal); M79.642 Pain in left hand; S59.912A Unspecified injury of left forearm, initial encounter
CPT/HCPCS: 73090; 73110; 73130

== ENCOUNTER 2025-07-02 08:19 | Outpatient (CLI) | payer OTHER, SELFPAY ==
--- NOTE | 2025-07-02 08:23 | XR_ITS ---
FINAL REPORT CLINICAL HISTORY: left wrist pain. f/u wrist fx. COMPARISON: 06/11/2025 FINDINGS: AP, oblique, and lateral views of the left wrist were obtained. There is no acute fracture or dislocation. The joint spaces are preserved. The soft tissues are normal. IMPRESSION: No acute osseous abnormality of the left wrist. Reviewed, Interpreted and Dictated by Joyce Strickland MD Transcribed by Imani Cano Authenticated and [facility]
--- OUTSIDE RECORDS SUMMARY | 2025-07-02 08:35 | XMS_ITS | Clinical Summary ---
Author Organization [facility] Address [address] [place] [address] Care Team Providers Care Performance Improvement Specialist Name Role Phone Eze Delia Michelle APRN Primary Care Provider [phone] Family History Medical History Relation Name Comments [...] 12/29/2024 Sigmoidoscopy 12/29/2024 [facility]-Colorectal Cancer Screening 12/29/2024 [id number] Vaccine (2 - 20 25- season) 2025 [...] to complete this topic Insurance NEDAALEXANDRA MARC [id number] [facility] Care Teams Performance Improvement Specialist Relationship Specialty Start Date End Date Delia Loo APRN [address] [place] [address] PCP - General 09/20/22
--- OUTSIDE RECORDS SUMMARY | 2025-07-02 08:35 | XMS_ITS | Encounter Summary ---
Author Organization [facility] Address [address] [place] [address] Care Team Providers Care Chemical Processor Name Role Phone Delia Loo APRN Primary Care Provider [phone] Encounter Details Date Type Department Care Team (Late st Contact Info) Description 09/16/2022 [facility] [address] [place] [address] Alyse Arriaza APRN [address] [place] [phone] Obstructive sleep apnea (adult) (pediatric) (Primary Dx) [...] Primary documented in this encounter Care Teams Chemical Processor Relationship Specialty Start Date End Date Delia Loo APRN [address] [place] [address] PCP - General 09/20/22 documented as of this encounter
--- OUTSIDE RECORDS SUMMARY | 2025-07-02 08:35 | XMS_ITS | Clinical Summary ---
Author Organization [facility] Address [address] [place] [address] Care Team Providers Care Retirement Consultant Name Role Phone Patrick Brown MD Primary Care Provider [phone] Allergies No known active allergies Medications bisoprolol [...] by mouth Daily. Active vitamin D (ERGOCALCIFEROL) 89716 units capsule capsule Take 1 capsule by [...] Recently Relevant to Health Maintenance Care Teams Retirement Consultant Relationship Specialty Start Date End Date Patrick Brown MD [address] [place] [facility] [address] ATTN: [place] [address] PCP - General 12/23/15
== END 2025-07-02 23:59 | disposition home or self-care (01) ==
LOC: RAD 08:20
PROVIDERS: PCP Nurse Practitioner Family; Visit Provider Physician Assistant
DX: S52.592D Other fractures of lower end of left radius, subsequent encounter for closed fracture with routine healing (principal)
CPT/HCPCS: 73110

== ENCOUNTER 2025-08-15 12:29 | Outpatient (CLI) | payer OTHER, SELFPAY ==
[2025-08-15 09:30] VITALS: BMI 45.9
--- OUTSIDE RECORDS SUMMARY | 2025-08-15 12:31 | XMS_ITS | Encounter Summary ---
Author Organization [facility] Address [address] [place] [address] Care Team Providers Care Cutter And Presser Name Role Phone Delia Loo APRN Primary Care Provider [phone] Encounter Details Date Type Department Care Team (Late st Contact Info) Description 09/16/2022 Community [facility] [address] [place] [address] Alyse Arriaza APRN [address] [place] [phone] Obstructive sleep apnea (adult) (pediatric) (Primary Dx) [...] Primary documented in this encounter Care Teams Cutter And Presser Relationship Specialty Start Date End Date Delia Loo APRN [address] [place] [address] PCP - General 09/20/22 documented as of this encounter
--- OUTSIDE RECORDS SUMMARY | 2025-08-15 12:31 | XMS_ITS | Clinical Summary ---
Author Organization [facility] Address [address] [place] [address] Care Team Providers Care Senior Electronics Technician Name Role Phone Eze Delia Michelle APRN Primary Care Provider [phone] Family History Medical History Relation Name Comments [...] 12/29/2024 Sigmoidoscopy 12/29/2024 [facility]-Colorectal Cancer Screening 12/29/2024 [id number] Vaccine (2 - 20 25- season) 2025 [...] to complete this topic Insurance NEDAALEXANDRA MARC [id number] [facility] Care Teams Senior Electronics Technician Relationship Specialty Start Date End Date Delia Loo APRN [address] [place] [address] PCP - General 09/20/22
--- OUTSIDE RECORDS SUMMARY | 2025-08-15 12:31 | XMS_ITS | Clinical Summary ---
Author Organization [facility] Address [address] [place] [address] Care Team Providers Care Language And Literature Division Chair Name Role Phone Patrick Brown MD Primary Care Provider [phone] Allergies No known active allergies Medications bisoprolol [...] by mouth Daily. Active vitamin D (ERGOCALCIFEROL) 85878 units capsule capsule Take 1 capsule by [...] Recently Relevant to Health Maintenance Care Teams Language And Literature Division Chair Relationship Specialty Start Date End Date Patrick Brown MD [address] [place] [facility] [address] ATTN: [place] [address] PCP - General 12/23/15
--- NOTE | 2025-08-15 12:47 | ECG_ITS ---
APPROVED REPORT Exam: Resting ECG HR:65 bpm ECG Measurements Heart Rate 65 AXES GA 166 P 48 QRSd 90 QRS 1 QT 420 T 72 QTc 431 Conclusion SINUS RHYTHM Left atril abnormaltiy Late r wave progression BORDERLINE ECG UNCONFIRMED REPORT Electronically signed by : Rohan Love MD 08/16/2025 09:28:09
[2025-08-15 12:49] LABS: Hematocrit 41.4 % (37.0-47.0); Hemoglobin 14.1 g/dL (12.2-16.2); Immature Granulocytes % 0.7 %; Mean Corpuscular HGB Conc 34.1 g/dL (31.8-35.4); Mean Corpuscular Hemoglobin 29.1 pg (27.0-31.2); Mean Corpuscular Volume 85.4 fl (81-99); Nucleated Red Blood Cells % 0 %; Platelet Count 260 K/mm3 (142-424); Red Blood Count 4.85 M/mm3 (4.20-5.40); Red Cell Distribution Width-SD 39.1 fL; White Blood Count 12.9 K/mm3 (4.8-10.8)
[2025-08-15 12:55] LABS: Chloride 108 mmol/L (98-107)
[2025-08-15 12:56] LABS: Potassium 4.2 mmoL/L (3.5-5.1); Sodium 141 mmol/L (136-145)
[2025-08-15 12:59] LABS: Anion Gap 15.2 mEq/L (5-15); Blood Urea Nitrogen 19 mg/dl (7-17); Calcium 8.9 mg/dl (8.4-10.2); Carbon Dioxide 22 mmol/L (22.0-30.0); Creatinine Clearance Estimated 91 mL/min (50-200); Creatinine,Serum 0.70 mg/dl (0.52-1.04); Estimated Glomerular Filt Rate 90 ml/min (>60); GFR (African American) 109 ML/MIN (>60); Glucose 114 mg/dl (74-100)
== END 2025-08-15 23:59 | disposition home or self-care (01) ==
LOC: PREOP 12:30
PROVIDERS: PCP Nurse Practitioner Family; Visit Provider Orthopaedic Surgery
DX: Z01.810 Encounter for preprocedural cardiovascular examination (principal); Z01.812 Encounter for preprocedural laboratory examination; R94.31 Abnormal electrocardiogram [ECG] [EKG]
CPT/HCPCS: 80048; 85025; 93005

== ENCOUNTER 2025-08-22 06:03 | Day surgery (SDC) | payer OTHER, SELFPAY ==
[2025-08-15 14:00] VITALS: BMI 45.9
[2025-08-22] VITALS (10 sets, daily range): BP systolic 124–147; BP diastolic 71–90; PULSE 72–87; RESP 14–18; TEMP 36.4; O2SAT 91–98
[2025-08-22] MEDS: LACTATED RINGERS 1000ML 1,000 ML 100 ML IV (06:44)
--- NOTE | 2025-08-22 07:09 | P.PNANES_ITS ---
[facility] Disclaimer: The information contained in this section may have been updated after the patient was seen, as this information can be updated by other users. Medical History TMJ (dislocation of temporomandibular joint) Edema KAMRAN (obstructive sleep apnea) Body mass index (BMI) of 40.1 to 44.9 in adult Sinus congestion COVID-19 Acute rhinosinusitis KAMRAN (obstructive sleep apnea) History of neck swelling Lymphadenopathy Smoking greater than 20 pack years Smoking greater than 30 pack years Multiple lung nodules on CT Dyspnea on exertion Mediastinal lymphadenopathy Hilar lymphadenopathy Burning with urination Painful micturition History of chest pain Dizziness Swelling of right ear Right ear pain BMI 45.0-49.9, adult Diastolic dysfunction Bronchitis Sinusitis Restless leg syndrome Difficulty with CPAP use Right ankle pain Elevated alkaline phosphatase level History of left heart catheterization Migraine BMI 40.0-44.9, adult Maxillary sinusitis, acute Exposure to COVID-19 virus Abdominal pain Family history of heart disease Atypical angina Abnormal cardiovascular stress test Ex-smoker HLD (hyperlipidemia) Obesity Right wrist tendonitis Right leg pain Right leg swelling Dyspnea Depression Chest pain Surgical History History of carpal tunnel surgery History of appendectomy History of cholecystectomy History of tonsillectomy H/O: section History of total hysterectomy Family History Other Anemia Asthma Cancer Diabetes Family history of heart disease Heart attack Hyperlipidemia Hypertension Thyroid disorder Tuberculosis Social History Smoking Status: Former smoker years smoked: 15 smoking status stop date: 09/20/2021 alcohol intake: never substance use type: denies use current occupational status: employed Travel in the last 8 weeks?: None household members: family housing: house marital status: number of children: 1 caffeine: Yes Have you lived/traveled outside [place] in past 30 days?: No Contact w/someone who lives/traveled outside [place] past 30 days?: No Exposure to someone with infectious disease in past 14 days?: No Do you have a fever (greater than 100.4 F or 38 C)?: No Have you tested positive for COVID-19?: No Exposed to someone with COVID-19 in past 14 days?: No Do you have a sore throat?: No Do you have a cough?: No Do you have any weakness?: No Are you experiencing any nausea/vomitting?: No Do you have any diarrhea?: No Are you experiencing any unusual bleeding?: No Do you have any muscle aches/pain?: No Do you have any abdominal pain?: No Are you experiencing loss of taste or smell?: No [facility] Anesthesia Checklist Patient Identification Patient Identification: Arm Band and Verbal (Name & ) Structural Data Admitted From: Home Planned Operative Procedure/s: L carpel tunnel Consent for Planned Operative Procedure(s) Verified: Yes Verified Documents: Surgical Consent and History and Physical NPO Status Verified Time NPO: 00:00 Additional verifications Anesthesia Reactions: No Hx Blood Transfusions: No Blood Transfusion Reaction: No Airway Assessment Mallampati Score:: Class III Dentition: Good Dentition Neurological Assessment Level of Consciousness: Awake, Alert and Appropriate Hx Seizures: No Numbness or tingling in extremities: No Anesthesia Plan Anesthesia Risk discussed: Yes Anesthesia Plan: Verified ASA Class: II Anesthesia Type: General
[2025-08-22] MEDS: LIDOCAINE 1% W/EPI 1:100,000 20ML VIAL 20 ML (08:38)
--- NOTE | 2025-08-22 08:58 | P.PNANES_ITS ---
[facility] Anesthesia Record Part I Anesthesia Record I Intake, IV Amount: 800 Hydration: Adequate Estimated blood loss (mL): 0 Urine output (mL): 0 Blood Pressure: 147/90 SaO2: 94 Pulse Rate: 87 Airway Patency: Patent Respiratory Rate: 14 Temperature: 97.5 F Patient is:: Awake and Stable Stable to PACU at:: 09:00
[2025-08-22] MEDS: MORPHINE 2MG/ML SYRINGE 2 MG IV (09:20)
[2025-08-22] MEDS: ONDANSETRON 4MG/2ML VIAL 4 MG IV (09:23)
--- NOTE | 2025-08-22 12:02 | EXP.OP.NOTE ---
Date of procedure: 08/22/25 Pre-op Diagnosis:: Left carpal tunnel syndrome Post-op Diagnosis:: Same Procedure performed:: Left endoscopic carpal tunnel release Surgeon:: Abraham Donohue DO Railcar Brake Operator(s):: Adalid SONI POWER SHOVEL MECHANIC:: Edson Payton Anesthesia: LMA Estimated blood loss (mL): 0 Operative findings:: See dictation Operative note:: 44-year-old female presents to the clinic with clinical symptoms carpal tunnel syndrome and wished undergo endoscopic carpal tunnel release presenting today for such. Saw the patient preoperatively marked left wrist with a yes and my initials. Patient transferred operative suite placed upon operating bed. Given general anesthesia LMA placed left upper extremity prepped and draped in normal sterile fashion. Once prepped and draped final operative timeout performed to identify proper patient procedure and extremity. Everyone involved in the case agreed. No counter indications to beginning. Did receive preoperative antibiotics. Marking pen was used to román planned incision over the volar wrist crease. Esmarch was used to exsanguinate extremity pneumatic tourniquet inflated to 250 mmHg. Skin knife was used to incise the skin retractors were placed careful dissection was taken down to identify the most proximal aspect the transverse carpal ligament once identified the small dilator followed by the larger dilator were placed into the carpal tunnel followed by the 4.0 mm left sided sled once this lead was within the carpal tunnel camera was then placed the transverse carpal ligament was clearly seen superiorly within the wound. The endoscopic hook was used to identify the most distal aspect of the transverse carpal ligament followed by the rasp to remove soft tissue followed by the hook blade which allow me to fully release the transverse carpal ligament under direct visualization. Once this was released the slide was removed irrigation of the wound performed. Local anesthesia infiltrated around the surgical site. Skin closed with 4-0 Monocryl stitch with Steri-Strips sterile hand dressing placed patient waken from anesthesia taken recovery in stable condition. Condition: stable Disposition: PACU Complications:: None apparent
--- NOTE | 2025-08-22 12:41 | P.PNANES_ITS ---
[facility] Anesthesia Record Part II Anesthesia Record Part II Discharge Time: 10:01 Destination: Surgical Day Care (OP Surgery) PACU nurse assessment reviewed?: Yes Patient Condition:: Good Anesthesia Complications:: None Swallowing reflex intact?: Yes Airway Patency: Patent Cyanosis?: No Blood Pressure: 124/78 SaO2: 91 Respiratory Rate: 18 Pulse Rate: 80 Temperature: 97.5 F Mental Status: Alert & Oriented Pain level:: 0 Nausea and/or vomitting:: None Intake, IV Amount: 0 Hydration: Adequate
== END 2025-08-22 10:01 | disposition home or self-care (01) ==
PROVIDERS: PCP Nurse Practitioner Family; Visit Provider Orthopaedic Surgery
PROC: (CPT 64721; principal; 2025-08-22 08:15)
DX: G56.02 Carpal tunnel syndrome, left upper limb (principal); I51.89 Other ill-defined heart diseases; E78.5 Hyperlipidemia, unspecified; G47.33 Obstructive sleep apnea (adult) (pediatric); Z87.891 Personal history of nicotine dependence; Z79.899 Other long term (current) drug therapy; Z88.8 Allergy status to other drugs, medicaments and biological substances
CPT/HCPCS: 29848; 96374; J0690; J1100; J1885; J2003; J2004; J2250; J2270; J2405; J2704; J3010; J7120